=== PATIENT | female | born 1980 | race Caucasian/White ===

== ENCOUNTER 2018-07-31 18:30 | Outpatient (RCR) | payer OTHER, SELFPAY ==
--- NOTE | 2018-07-24 13:32 | HP.PTEVAL ---
Patient's Visit Information GREY LOGAN is a 37 year old F referred to Physical Therapy by Jhoana Estrella DO with a diagnosis of SPRAIN OF RIGHT ROTATOR CUFF CAPSUL. Date of Evaluation: 07/24/18 Physical Therapist: Manas Nguyen PT, - Visit Plan Frequency: 2x /Week Duration: 4 Weeks Plan: RTC/POSTURAL EX'S,SCAPULAR STRENGTHENING,MODALITIES FOR PAIN RELEIVE - Subjective Findings: This 37 y/o female presents o physical therapy right shoulder pain for about 3 months. Patient injuried right shoulder crossfit possibel bench press,and progressivly worse . Also,patient was in in karate arm bar made symptoms worse. Patient pain affects ADL'S ,self hygine and activies above 90 degrees. Denies parathesia/tingling. Patient pain affect sleeping especially on side right. Patient symptoms affect QOL and function.Patient seen R recommended PT and predisone. 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 SOCIAL:SIGNIFICANT OTHER - Pain Right Shoulder Pain Intensity (Out of 10): 5 Pain Intensity Range: 10 Comment: MOVEMENT - Objective POSTURE:mild foward posture ,rounded shoulders. PALPATION: tender long head bicep tendon. NEURO: intact ,denies parathesia/tingling. AROM: shoulder flexion 160,abduction 160 degrees ,ER 90 pain at end range ,IR behind back. MMT: RTC 4/5 ,bild pain ,deltoid 4-/5 mild pain - Special Tests R Shoulder Supine Impingement Test - RC Tear: Negative R Shoulder Lift Off Test - Subscapular Tear: Negative R Shoulder Drop Sign - IS Test: Negative R Shoulder Belly Press - SupScap: Positive R Shoulder Neer - Impingement: Positive R Shoulder Millan Rj - Impingement: Positive - Goals Goal 1:: Independant with HEP Goal Time Frame: 4-6 Weeks Goal 2:: Patient to decrease shoulder pain by 75% or greater to improve function with ADL'S Goal Time Frame: 4-6 Weeks Goal Time Frame: 4-6 Weeks Goal 4:: Patient to increase strength of right shoulder by 4/5 without pain to improve functio. Goal Time Frame: 4-6 Weeks Goal 5:: Patient to improve ablity to perform ADLS' without pain and crossfit activities Goal Time Frame: 4-6 Weeks - Rehabilitation Potential Physical Therapy Diagnosis: This patient appears to have bicipital tendonesis with pain and palaption and impingement of shoulder during [place] ,lifting ,mainly reaching back thus benifit From skilled PT Rehabilitation Potential: Good - Anticipated Interventions Patient/Client Instruction: Educate patient on: Condition, Plan of Care For the Purpose of:: To decrease pain, To increase ROM, To improve ability to perform ADL's, To increase tolerance to activity/condition/position, To improve performance and independence with ADL's, To improve ability of physical actions for home/community/work/leisure, To improve health of tissue, To decrease soft tissue restriction, To increase flexibility/ROM, To reduce risk of recurrence, To improve ability to perform tasks related to life management Therapeutic Exercise to Include: Strength training, Postural training, Flexibilty training, Active ROM Comment: RTC For the Purpose of:: To decrease pain, To increase ROM, To improve health of tissue, To decrease soft tissue restriction, To increase flexibility/ROM, To reduce risk of recurrence, To improve ability to perform tasks related to life management TENS: Yes IF ES: Yes Cryotherapy (ice pack, ice massage): Yes Thermo therapy (hot pack): Yes Ultrasound (thermal/non thermal): Yes For the Purpose of:: To decrease pain, To decrease swelling/inflammation, To improve nutrient delivery to tissue, To increase oxygenation perfusion, To improve health of tissue, To decrease soft tissue restriction Thank you for the opportunity to evaluate your patient. For Medicare and Medicare HMO plans, please review the plan of care and approve it. It will need to be FAXED BACK to us at [phone] for Medicare purposes. For Medicare only, by signing this I certify the plan of care. Please let me know if there are questions or concerns regarding this plan of care. Physician Signature: Date:
--- NOTE | 2018-08-07 11:12 | HP.PT.NRP ---
HP - Discharge Summary (1) - Patient Information GREY LOGAN was seen in my office for initial evaluation on 07/24/18. The following Plan of Care was established for this patient: Initial Frequency: 2x /Week Initial Duration: 4 Weeks - Anticipated Interventions Patient/Client Instruction: Educate patient on: Condition, Plan of Care For the Purpose of:: To decrease pain, To increase ROM, To improve ability to perform ADL's, To increase tolerance to activity/condition/position, To improve performance and independence with ADL's, To improve ability of physical actions for home/community/work/leisure, To improve health of tissue, To decrease soft tissue restriction, To increase flexibility/ROM, To reduce risk of recurrence, To improve ability to perform tasks related to life management Therapeutic Exercise to Include: Strength training, Postural training, Flexibilty training, Active ROM For the Purpose of:: To decrease pain, To increase ROM, To improve health of tissue, To decrease soft tissue restriction, To increase flexibility/ROM, To reduce risk of recurrence, To improve ability to perform tasks related to life management TENS: Yes IF ES: Yes Cryotherapy (ice pack, ice massage): Yes Thermo therapy (hot pack): Yes Ultrasound (thermal/non thermal): Yes For the Purpose of:: To decrease pain, To decrease swelling/inflammation, To improve nutrient delivery to tissue, To increase oxygenation perfusion, To improve health of tissue, To decrease soft tissue restriction This patient was last seen in our office 07/31/18. Pertinent comments regarding their Physical therapy will appear below: Patient seen for PT for RTC pain with PT focusing on RTC strengthening,posture ex's ,modalties for pain releive thus is d/c from PT At this point I will be discontinuing this patient from physical therapy. I would be happy to see this patient again in the future if found appropriate by the physician. Thank you! Manas Nguyen, PT, Cert MDT, OCS
--- OUTSIDE RECORDS SUMMARY | 2018-09-16 18:14 | XMS RPT_ITS ---
:1980 Author Organization [facility] Care Team Providers Name Role Phone Johana Estrella Attending Unavailable Johana Estrella Referring Unavailable Johana Estrella Primary Care Unavailable PROBLEMS PROBLEMS No Problem Records FoundPROCEDURES PROCEDURES No Procedure Records FoundRESULTS RESULTS INITAL EVALUATION (1) Observed: 07/24/2018 Status: F Source: [facility] - PT 2:42 PM [facility] REPOSITORY [facility] [place] [address] Fax REHABILITATION SERVICES INITIAL EVALUATION MR#: [id number] Acct: [id number] Name: GREY LOGAN Rep #: [id number] : 1980 37 From: Manas Nguyen PT, Cert. MDT, OCS Referring Dr.: Johana Estrella DO Status: REG RCR Insurance: [employer] SELF PAY INSURANCE Patient's Visit Information GREY LOGAN is a 37 year old F referred to Physical Therapy by Johana Estrella DO with a diagnosis of SPRAIN OF RIGHT ROTATOR CUFF CAPSUL. Date of Evaluation: 07/24/18 Physical Therapist: Manas Nguyen PT, - Visit Plan Frequency: 2x /Week Duration: 4 Weeks Plan: RTC/POSTURAL EX'S,SCAPULAR STRENGTHENING,MODALITIES FOR PAIN RELEIVE - Subjective Findings: This 37 y/o female presents o physical therapy right shoulder pain for about 3 months. Patient injuried right shoulder crossfit possibel bench press,and progressivly worse . Also,patient was in in karate arm bar made symptoms worse. Patient pain affects ADL'S ,self hygine and activies above 90 degrees. Denies parathesia/tingling. Patient pain affect sleeping especially on side right. Patient symptoms affect QOL and function.Patient seen R recommended PT and predisone. 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 SOCIAL:SIGNIFICANT OTHER - Pain Right Shoulder Pain Intensity (Out of 10): 5 Pain Intensity Range: 10 Comment: MOVEMENT - Objective POSTURE:mild foward posture ,rounded shoulders. PALPATION: tender long head bicep tendon. NEURO: intact ,denies parathesia/tingling. AROM: shoulder flexion 160,abduction 160 degrees ,ER 90 pain at end range ,IR behind back. MMT: RTC 4/5 ,bild pain ,deltoid 4-/5 mild pain - Special Tests R Shoulder Supine Impingement Test - RC Tear: Negative R Shoulder Lift Off Test - Subscapular Tear: Negative R Shoulder Drop Sign - IS Test: Negative R Shoulder Belly Press - SupScap: Positive R Shoulder Neer - Impingement: Positive R Shoulder Millan Rj - Impingement: Positive - Goals Goal 1:: Independant with HEP Goal Time Frame: 4-6 Weeks Goal 2:: Patient to decrease shoulder pain by 75% or greater to improve function with ADL'S Goal Time Frame: 4-6 Weeks Goal Time Frame: 4-6 Weeks Goal 4:: Patient to increase strength of right shoulder by 4/5 without pain to improve functio. Goal Time Frame: 4-6 Weeks Goal 5:: Patient to improve ablity to perform ADLS' without pain and crossfit activities Goal Time Frame: 4-6 Weeks - Rehabilitation Potential Physical Therapy Diagnosis: This patient appears to have bicipital tendonesis with pain and palaption and impingement of shoulder during [place] ,lifting ,mainly reaching back thus benifit From skilled PT Rehabilitation Potential: Good - Anticipated Interventions Patient/Client Instruction: Educate patient on: Condition, Plan of Care For the Purpose of:: To decrease pain, To increase ROM, To improve ability to perform ADL's, To increase tolerance to activity/condition/position, To improve performance and independence with ADL's, To improve ability of physical actions for home/community/work/leisure, To improve health of tissue, To decrease soft tissue restriction, To increase flexibility/ROM, To reduce risk of recurrence, To improve ability to perform tasks related to life management Therapeutic Exercise to Include: Strength training, Postural training, Flexibilty training, Active ROM Comment: RTC For the Purpose of:: To decrease pain, To increase ROM, To improve health of tissue, To decrease soft tissue restriction, To increase flexibility/ROM, To reduce risk of recurrence, To improve ability to perform tasks related to life management TENS: Yes IF ES: Yes Cryotherapy (ice pack, ice massage): Yes Thermo therapy (hot pack): Yes Ultrasound (thermal/non thermal): Yes For the Purpose of:: To decrease pain, To decrease swelling/inflammation, To improve nutrient delivery to tissue, To increase oxygenation perfusion, To improve health of tissue, To decrease soft tissue restriction Thank you for the opportunity to evaluate your patient. For Medicare and Medicare HMO plans, please review the plan of care and approve it. It will need to be FAXED BACK to us at [phone] for Medicare purposes. For Medicare only, by signing this I certify the plan of care. Please let me know if there are questions or concerns regarding this plan of care. Physician Signature: Date: <Electronically signed by Manas Nguyen PT, Cert. T, OCS> 07/24/18 1442 CC: Johana Estrella DO ELVIS Signed ALLERGIES ALLERGIES No Allergies Records FoundENCOUNTERS ENCOUNTERS ADMIT/DISCHARGE ACCOUNT ADMITTING ENCOUNTER LOCATION SOURCE NUMBER CLASS 07/31/2018 [id number] Ambulatory [facility] [place] [facility] ing:PT Repository PAYERS PAYERS ENCOUNTER GUARANTOR PAYER SUBSCRIBER SOURCE 07/31/2018 GREY [facility] GREY L [facility] [id number] Insurance:Aarti AWADB: [facility] [place]: [id number] Repository [id number]: (186) Date:[id number] [phone] () [id number] JESUS MALDONAOD [id number]: 07/31/2018 Secondary NOT GIVENUNK [facility] Insurance:SELF PAY [facility]: Effective Repository Date:2018-07-20
== END 2018-07-31 19:00 | disposition home or self-care (01) ==
LOC: PT 18:30
PROVIDERS: Family Provider Family Medicine; PCP Family Medicine; Referring Provider Family Medicine; Visit Provider Family Medicine
DX: S43.421D Sprain of right rotator cuff capsule, subsequent encounter (principal)
CPT/HCPCS: 97014; 97032; 97035; 97110; 97161; G0283

== ENCOUNTER 2018-10-09 23:46 | Emergency (ER) | payer OTHER, SELFPAY ==
[2018-10-09 23:47] VITALS: BP 131/89; PULSE 87; RESP 16; TEMP 35.5; O2SAT 100; BMI 41.6
--- NOTE | 2018-10-10 00:12 | RAD_ITS ---
STUDY: X-RAY CHEST REASON FOR EXAM: Female, 37 years old. Chest discomfort TECHNIQUE: PA and lateral views of the chest. COMPARISON: None. FINDINGS: The lungs are clear and expanded. There is no demonstrated pleural abnormality. Normal size heart. Normal mediastinum and rosa. Normal visualized pulmonary arteries. Normal visualized aortic arch and descending thoracic aorta. Normal visualized thoracic spine. Normal visualized ribs, clavicles, and shoulders. There is no demonstrated abnormality of the visualized soft tissue structures of the upper abdomen. RAD/Chest PA and Lateral IMPRESSION: Normal x-ray examination of the chest. Electronically Signed: Corinne Patton MD at 0:53 EST Tel , Service support ,
--- NOTE | 2018-10-10 00:12 | EKG12_ITS ---
Test Reason : CP/BACK PAIN Blood Pressure : / mmHG Vent. Rate : 076 BPM Atrial Rate : 076 BPM P-R Int : 156 ms QRS Dur : 088 ms QT Int : 388 ms P-R-T Axes : 025 050 036 degrees QTc Int : 436 ms Normal sinus rhythm Normal ECG Confirmed by ZELALEM CORONADO, ROBE ([id number]), publication editor ANDRY STEPHENSON ([id number]) on 10/11/2018 9:59:23 AM Referred By: BOB Confirmed By:ROBE MASTERSON MD
--- NOTE | 2018-10-10 01:07 | ED.VISSUMM ---
- ER Visit Summary Date of Service: 10/10/18 Chief Complaint: Chest pain History of Present Illness: The patient is a 37 F who presents with chest pain. It began about 4 hours ago. She states it feels like my muscles are cramped up. This is all the way across her lower chest. She does note a recent URI-like illness with 1 week of cough congestion and rhinorrhea. She states her ears feel clogged. She states she has had similar symptoms with the chest wall pain about once a year. She has a history of seasonal allergies but is otherwise healthy. Physical Examination: Afebrile vitals normal Moist mucous membranes Heart regular rate and rhythm Lungs are clear Abdomen soft Anterior chest wall tenderness to palpation Test Results: EKG shows normal sinus rhythm at a rate of 76. Two-view chest x-ray normal. Emergency Department Course and Treatment: EKG was obtained to rule out pericarditis. This shows no findings suggestive of this. Chest x-ray was obtained to rule out pneumonia and is normal. I do believe this is all related to chest wall pain and costochondritis. She was advised on supportive care. She understands to return for new or worsening symptoms. She was discharged. Treatment Plan: [] Disposition: Discharge Impression: Chest wall pain This note was generated with [employer] dictation software. It may contain incorrect words, spelling, and punctuation that were not noted in review of the chart prior to signing ED Disposition - Plan for ED Patient: Referrals: Johana Estrella DO [Primary Care Provider] -
--- NOTE | 2018-10-10 01:08 | ED.DEP ---
ED Disposition - Plan for ED Patient: Instructions: ED Chest Pain Costochondritis Referrals: Johana Estrella DO [Primary Care Provider] -
[2018-10-10 01:36] VITALS: BP 142/86; PULSE 86; RESP 16; O2SAT 89
== END 2018-10-10 01:36 | disposition home or self-care (01) ==
PROVIDERS: Emergency Provider Emergency Medicine; Family Provider Family Medicine; PCP Family Medicine
DX: R07.89 Other chest pain (principal); R05 Cough; J34.89 Other specified disorders of nose and nasal sinuses
CPT/HCPCS: 71046; 93005; 99282

== ENCOUNTER → 2019-08-02 11:16 | Outpatient (CLI) | payer OTHER, SELFPAY ==
--- NOTE | 2019-08-02 11:22 | RAD_ITS ---
STUDY: X-RAY CHEST REASON FOR EXAM: Female, 38 years old. Chest pain TECHNIQUE: 2 views COMPARISON: Prior chest radiograph of October 10, 2018 FINDINGS: The lungs are clear and expanded. There is no demonstrated pleural abnormality. Normal size heart. Normal mediastinum and rosa. Normal visualized pulmonary arteries. Normal visualized aortic arch and descending thoracic aorta. Normal visualized thoracic spine. Normal visualized ribs, clavicles, and shoulders. There is no demonstrated abnormality of the visualized soft tissue structures of the upper abdomen. RAD/Chest PA and Lateral IMPRESSION: Normal x-ray examination of the chest. Electronically Signed: Tracie Lao MD at 21:21 EST , Service support ,
== END ==
PROVIDERS: Family Provider Family Medicine; PCP Family Medicine; Referring Provider Family Medicine; Visit Provider Family Medicine
DX: R07.9 Chest pain, unspecified (principal)
CPT/HCPCS: 71046

== ENCOUNTER 2021-01-17 23:29 | Emergency (ER) | payer OTHER, SELFPAY ==
--- NOTE | 2021-01-17 00:51 | RAD_ITS ---
STUDY: X-RAY - RIGHT KNEE REASON FOR EXAM: Female, 40 years old. injury TECHNIQUE: 4 view(s) of the knee. COMPARISON: None. FINDINGS: Normal visualized distal femur. Normal visualized proximal tibia and fibula. Normal proximal tibiofibular articulation. Normal medial femorotibial compartment. Normal lateral femorotibial compartment. Normal patellofemoral articulation. The soft tissue structures are unremarkable. No acute fracture. RAD/Knee 4 or More Views IMPRESSION: Negative x-ray examination of the knee. Electronically Signed: Howie Gracia MD at 1:10 EDT Tel , Service support ,
[2021-01-17 23:30] VITALS: BP 140/100; PULSE 93; RESP 15; TEMP 35.8; O2SAT 99; BMI 44.2
--- NOTE | 2021-01-17 23:56 | EDS_ITS ---
HPI History of Present Illness Chief Complaint: Lower Extremity Injury Informant: patient Narrative Narrative: 40-year-old female states that yesterday she was hiking a [place] of the [employer] [place] in the [facility]. She lost her footing fell forward. During the process she injured her right knee. She notes that it was very painful to try to bear any weight. She notes bruising and swelling. PFSH PFS Medical History (Updated 01/18/21 @ 00:[address] Jim Tiwari DO) Alopecia Anxiety Asthma Depression Seasonal allergies Vitamin D deficiency no medical history Home Medications citalopram 20 mg PO DAILY 01/18/21 [History Last Taken Unknown] fexofenadine [Tita Allergy] 60 mg PO DAILY 01/18/21 [History Last Taken Unknown] fluticasone propionate [Flonase Allergy Relief] 1 spray INTRANASAL DAILY 01/18/21 [History Last Taken Unknown] montelukast 10 mg PO DAILY 01/18/21 [History Last Taken Unknown] Allergy/AdvReac Type Severity Reaction Status Date / Time No Known Allergies Allergy Verified 01/17/21 23:41 Surgical History (Updated 01/18/21 @ 00:19 by Lauren Montano) History of placement of ear tubes [place] teeth extracted Social History (Updated 01/17/21 @ 23:[address] Jim Tiwari DO) Smoking Status: Never smoker substance use type: does not use ROS ROS ED Constitutional Constitutional ED: Denies chills or weight loss Eyes Eyes: Denies change in vision or diplopia ENT ENT ED: Denies ear pain, rhinorrhea or sore throat Cardiovascular Cardiovascular: Denies chest pain, orthopnea, palpitations or racing heartbeat Respiratory/Chest Respiratory/Chest: Denies cough, dyspnea or orthopnea Gastrointestinal Gastrointestinal: Denies abdominal pain, diarrhea, nausea or vomiting Genitourinary Genitourinary ED: Denies dysuria, hematuria or urinary frequency Musculoskeletal Musculoskeletal: Reports other Details: Right knee pain ; Denies arthralgias or myalgias Integumentary Denies abscess or rash Neurologic Neurologic: Denies headache(s) or weakness Psychiatric Psychiatric: Denies anxiety, depression, suicidal ideation or suicidal thoughts Endocrine Endocrinology: Denies polydipsia, polyphagia or polyuria Allergic/Immunologic Allergic/Immunologic ED: Denies mouth swelling, tongue swelling or urticaria EXAM Physical Exam Const Vital Signs: 01/17/21 23:30 Temperature 96.5 F L Temperature Source Temporal Pulse Rate 93 Respiratory Rate 15 Blood Pressure 140/100 H Blood Pressure Mean 113 Pulse Ox 99 Oxygen Delivery Method Room Air Positive well nourished and well developed General Appearance ED: well developed HEENT Reports normocephalic, head/scalp atraumatic and moist mucous membranes Eyes PERRL and EOMs intact bilaterally Neck no lymphadenopathy, supple and no JVD Resp normal respiratory effort and clear to auscultation bilaterally Cardio regular rate, regular rhythm and no murmurs GI normal to inspection, nondistended, normoactive bowel sounds and non-tender Palpation: soft Back/Spine no CVA tenderness and normal ROM Extremity Extremity Narrative: Right knee shows stable ligaments. There is swelling without effusion. There is some bruising over the patella and superficial abrasions. Extensor mechanism is intact General Extremety ED: Negative for edema General Extremity: Negative for edema Neuro oriented x3 and CN's II-XII intact bilaterally Sensorium / Orientation: alert Motor Exam: strength 5/5 throughout Psych mental status grossly normal Mood & Affect: Negative for depressed or tearful Skin no rashes or lesions noted and no wounds MDM MDM MDM Narrative Medical decision making narrative: My interpretation of the plain films of the knee is no acute fracture. We will Moiz wrap the knee. She is to use Tylenol Motrin. Continue to ice. Follow with primary care 10 to 14 days if not improving Discharge Plan Triage Chief Complaint: Lower Extremity Injury ED Provider: Jim Tiwari Dx/Rx/DC Orders Clinical Impression: Contusion of knee, right, Right knee sprain Instructions: ED Knee Sprain Prescriptions: No Action fexofenadine [Tita Allergy] 60 mg Tablet 60 mg PO DAILY RF: 0 citalopram 10 mg tablet 20 mg PO DAILY RF: 0 montelukast 10 mg tablet 10 mg PO DAILY RF: 0 fluticasone propionate [Flonase Allergy Relief] 50 mcg/actuation [place],Suspension 1 spray INTRANASAL DAILY RF: 0 Primary Care Provider: Johana Estrella Referrals: Johana Estrella DO [Primary Care Provider] - 10-14 Days if not better Disposition Disposition: Home, self care
== END 2021-01-18 01:07 | disposition home or self-care (01) ==
PROVIDERS: Emergency Provider Emergency Medicine; PCP Family Medicine
DX: S80.01XA Contusion of right knee, initial encounter (principal); S83.91XA Sprain of unspecified site of right knee, initial encounter; Y93.01 Activity, walking, marching and hiking; W19.XXXA Unspecified fall, initial encounter; F32.9 Major depressive disorder, single episode, unspecified; F41.9 Anxiety disorder, unspecified; J45.909 Unspecified asthma, uncomplicated
CPT/HCPCS: 73564; 99282

== ENCOUNTER → 2021-02-04 15:19 | Outpatient (CLI) | payer OTHER, SELFPAY ==
[2021-01-17 23:30] VITALS: BMI 44.2
--- NOTE | 2021-02-04 15:27 | BI_ITS ---
MAMMOGRAPHY - BILATERAL SCREENING REASON FOR EXAM: Female, 40 years old. Routine annual screening examination. PERTINENT HISTORY: Non-contributory. Chronic inversion of the left nipple. TECHNIQUE: Digital bilateral breast bhavya (3D mammographic acquisition) in the CC and MLO projections. 2-D mediolateral oblique (MLO) and craniocaudad (CC) views of both breasts were obtained. CAD: Full Field Digital Mammography with Computer Added Detection was performed. COMPARISON: Comparison is made with prior study dated 12/24/2016. FINDINGS: Breast Composition: There are scattered areas of fibroglandular density. There are no dominant masses or suspicious calcifications. There is an 8 mm x 8 mm focal area of architectural distortion seen in the medial inferior aspect of the right breast. Correlation with ultrasound is recommended. No other significant abnormalities are identified. BI/SCRN MAMM (CAD)W/BHAVYA BILAT IMPRESSION: 8 mm x 8 mm focal area of architectural distortion seen in the slightly medial inferior aspect of the right breast. Correlation with ultrasound is recommended. ASSESSMENT CATEGORY: BIRADS Category 0: Incomplete. Need additional imaging evaluation. A letter regarding these results will be sent to the patient by the facility within 30 days. Approximately 10% of breast cancers are not detected by mammography. A normal mammogram should not delay biopsy of a clinically suspicious abnormality. [id number] Electronically Signed: Antoine Gleason MD at 8:28 EDT , Service support ,
== END ==
PROVIDERS: PCP Family Medicine; Referring Provider Family Medicine; Visit Provider Family Medicine
DX: Z12.31 Encounter for screening mammogram for malignant neoplasm of breast (principal)
CPT/HCPCS: 77063; 77067

== ENCOUNTER → 2021-02-13 08:29 | Outpatient (CLI) | payer OTHER, SELFPAY ==
[2021-01-17 23:30] VITALS: BMI 44.2
--- NOTE | 2021-02-13 08:32 | US_ITS ---
STUDY: ULTRASOUND BREAST - RIGHT REASON FOR EXAM: Female, 40 years old. Abnormal screening mammogram. TECHNIQUE: Axial and longitudinal images of the RIGHT breast were performed with a high resolution ultrasound transducer. # OF IMAGES: 36 COMPARISON: Comparison is made with prior mammogram dated 02/04/2021. FINDINGS: RIGHT Breast: The inferior medial portion of the right breast was examined by ultrasound. There is evidence of dilated ducts. Routine mammographic follow-up is recommended. US/Breast Limited Unilateral IMPRESSION: Dilated ducts in the inferior medial aspect of the right breast. Routine annual mammographic follow-up is recommended. ASSESSMENT CATEGORY: BIRADS Category 2: Benign. A letter regarding these results will be sent to the patient by the facility within 30 days. Electronically Signed: Antoine Gleason MD at 11:06 EDT , Service support ,
== END ==
PROVIDERS: PCP Family Medicine; Referring Provider Family Medicine; Visit Provider Family Medicine
DX: R92.8 Other abnormal and inconclusive findings on diagnostic imaging of breast (principal)
CPT/HCPCS: 76642

== ENCOUNTER 2021-11-05 07:54 | Outpatient (CLI) | payer OTHER, SELFPAY ==
--- NOTE | 2021-11-05 08:00 | RAD_ITS ---
INDICATION: DYSPHAGIA EXAMINATION/TECHNIQUE: Barium oral contrast and gas bubbles were administered to the patient. Total Fluoroscopic Time: 40 seconds AND number of Fluoroscopic Images: 14 OR Radiation dosage index: COMPARISON: None. FINDINGS: Initial AP spot images of the chest and upper abdomen were obtained and are unremarkable with no surgical clips or sutures. No masses or strictures are identified. There is no hiatal hernia. The mucosal pattern is unremarkable. There is normal motility. There is mild reflux. RAD/Esophagus Dual Contrast IMPRESSION: Mild reflux at the gastroesophageal junction. Otherwise, the remainder of the exam is unremarkable. Electronically Signed: Jaylon Holley, at 9:19 EDT ,
== END 2021-11-05 23:59 | disposition home or self-care (01) ==
PROVIDERS: PCP Family Medicine; Referring Provider Internal Medicine Gastroenterology; Visit Provider Internal Medicine Gastroenterology
DX: R13.14 Dysphagia, pharyngoesophageal phase (principal); K21.9 Gastro-esophageal reflux disease without esophagitis; R12 Heartburn; R19.7 Diarrhea, unspecified; K59.00 Constipation, unspecified; R10.30 Lower abdominal pain, unspecified
CPT/HCPCS: 74221

== ENCOUNTER → 2022-02-05 | Outpatient (CLI) | payer OTHER, SELFPAY ==
--- NOTE | 2022-02-05 08:01 | BI_ITS ---
MAMMOGRAPHY - BILATERAL SCREENING REASON FOR EXAM: Female, 41 years old. Routine annual screening examination. PERTINENT HISTORY: Non-contributory. Chronic inversion of the left nipple. TECHNIQUE: Digital bilateral breast bhavya (3D mammographic acquisition) in the CC and MLO projections. 2-D mediolateral oblique (MLO) and craniocaudad (CC) views of both breasts were obtained. CAD: Full Field Digital Mammography with Computer Added Detection was performed. COMPARISON: Comparison is made with prior study dated 02/04/2021 and 12/24/2016. FINDINGS: Breast Composition: There are scattered areas of fibroglandular density. There are no dominant masses or suspicious calcifications. Stable fat-containing axillary lymph nodes. No other significant abnormalities are identified. There has been no significant change since the prior study. BI/SCRN MAMM (CAD)W/BHAVYA BILAT IMPRESSION: Stable bilateral screening mammogram. Yearly follow-up mammogram recommended. (A) ASSESSMENT CATEGORY: BIRADS Category 2: Benign. A letter regarding these results will be sent to the patient by the facility within 30 days. Approximately 10% of breast cancers are not detected by mammography. A normal mammogram should not delay biopsy of a clinically suspicious abnormality. [id number] Electronically Signed: Antoine Gleason MD at 10:02 EDT ,
== END | disposition home or self-care (01) ==
LOC: OPBI 07:59
PROVIDERS: PCP Family Medicine; Visit Provider Family Medicine
DX: Z12.31 Encounter for screening mammogram for malignant neoplasm of breast (principal)
CPT/HCPCS: 77063; 77067

== ENCOUNTER → 2024-02-02 | Outpatient (CLI) | payer OTHER, SELFPAY ==
[2024-02-02 10:26] LABS: Absolute Lymphocyte Count 2.77 X10^3/uL (0.83-4.51); Absolute Neutrophil Count 6.9 X10^3/uL (2.0-7.7); Basophil# 0.04 X10^3/uL; Basophil% 0.4 % (0-1); Eosinophil# 0.14 X10^3/uL; Eosinophils% 1.3 % (0-5); Hematocrit 39.2 % (37-47); Hemoglobin 12.4 g/dL (12.0-15.0); Lymphocyte # 2.77 X10^3/ul (0.83-4.51); Lymphocyte % 25.7 % (19-41); Mean Corp Hgb Conc 31.6 g/dL (32-36); Mean Corpuscular Hgb 25.8 pg (27.0-32.0); Mean Corpuscular Volume 81.7 fL (81-99); Mean Platelet Vol. 9.5 fl (6.2-12.0); Monocyte# 0.89 X10^3/uL; Monocyte% 8.3 % (0-10); NRBC Flagged by Analyzer 0 % (0-5); Neutrophil # 6.89 X10^3/uL (2.7-7.7); Neutrophil % 63.9 % (47-70); Platelet Count 364 K/mm3 (150-450); RBC Distribution Width CV 13.3 % (11.6-14.6); RBC Distribution Width SD 39.1 fl (35.1-43.9); White Blood Count 10.8 K/mm3 (4.4-11.0)
[2024-02-02 11:08] LABS: AST(SGOT) 28 U/L (15-37); Alanine Aminotransfer ALT/SGPT 39 U/L (13-56); Albumin, Serum 3.6 g/dL (3.2-5.0); Alkaline Phosphatase 99 U/L (45-117); Anion Gap 7 (5-15); BUN 12 mg/dL (7-18); BUN/Creat Ratio 16.6 RATIO (10-20); Calcium,Total 9.1 mg/dL (8.5-10.1); Chloride 107 mmol/L (98-107); Creatinine, Serum 0.72 mg/dL (0.55-1.02); EST Glomerular Filtration Rate 93 mL/min (>60); Est Glom Filt Rate - Afr Amer 113 mL/min (>60); Globulin 3.6 g/dL (2.2-4.2); Glucose 97 mg/dL (74-106); Potassium 4.2 mmol/L (3.5-5.1); Protein, Total 7.2 g/dL (6.4-8.2); Sodium Level 137 mmol/L (136-145)
[2024-02-02 12:06] LABS: Hepatitis B Surface Antibody Non-Reactive; Hepatitis B Surface Antigen Non-Reactive (Nonreactive); Hepatitis C Antibody Non-Reactive (Nonreactive)
[2024-02-03 05:07] LABS: Hepatitis A AB, Total Negative (Negative); Hepatitis B Core Ab Total Negative (Negative)
== END | disposition home or self-care (01) ==
LOC: LAB 10:06
PROVIDERS: PCP Family Medicine
DX: K76.0 Fatty (change of) liver, not elsewhere classified (principal); R14.0 Abdominal distension (gaseous)
CPT/HCPCS: 36415; 80053; 85025; 86704; 86706; 86708; 86803; 87340

== ENCOUNTER 2024-04-05 08:25 | Day surgery (SDC) | payer OTHER, SELFPAY ==
--- NOTE | 2024-03-20 18:02 | HP.PCM_ITS ---
History and Physical Date of Admission: 04/05/24 HPI: The patient is a 43 year old adult presenting for pre-operative visit. She is scheduled for hysteroscopy with endonmetrial polyp resection and endometrial ablation, for menorrhagia on 04/05/24. Procedure discussed along with risks, benefits and complications. Other alternatives discussed for management. Consent form signed? Yes. PAST MEDICAL HISTORY PAST MEDICAL HISTORY Diagnosis Date ? Attention deficit disorder without mention of hyperactivity ? Obesity, unspecified ? Other and unspecified ovarian cyst ? Unspecified asthma(493.90) PAST SURGICAL HISTORY PAST SURGICAL HISTORY Procedure Laterality Date ? COLONOSCOPY SCREENING 01/2024 every 10 year ? EGD W/O BRSH SPEC VARICIES INJ 01/2024 ? EXTRACTION ERUPTED TOOTH/EXR ? FIBROSCAN 02/2024 liver ? IUD REMOVAL/INSERTION PROCEDURE (W NOTE) removed 2021 approx ? MYRINGOTOMY ASPIR&/EUSTACHIAN TUBE NFLTJ ANES Myringotomy/tubes CURRENT MEDICATIONS Current Outpatient Medications Medication Sig Dispense Refill ? fluticasone-salmeterol (ADVAIR DISKUS) 100-50 mcg/dose inhaler 1 Puff. ? LORazepam (ATIVAN) 0.5 mg 1 tablet Orally Twice a day prn F41.1 ? MAGNESIUM ORAL Take by mouth. ? cholecalciferol, vitamin D3, (VITAMIN D3 ORAL) Take by mouth. ? TURMERIC ORAL Take by mouth. ? MULTIVITAMIN ORAL Take by mouth. ? clobetasol (TEMOVATE) 0.05 % ointment Apply to affected area. ? fexofenadine HCl (JOSE ORAL) Take by mouth. ? citalopram (CELEXA) 20 mg tablet ? montelukast (SINGULAIR) 10 mg tablet Take 1 tablet by mouth daily at bedtime. 30 tablet 0 ? albuterol HFA (PROVENTIL HFA, VENTOLIN HFA) 90 mcg/actuation inhaler Inhale 2 Puffs as instructed every 4 hours as needed. 1 Inhaler 0 ? fluticasone (FLOVENT HFA) 110 mcg/actuation inhaler Inhale 2 Puffs as instructed twice daily. 1 Inhaler 5 ? albuterol HFA (PROAIR HFA) 90 mcg/actuation inhaler Inhale 2 Puffs as instructed every 4 hours as needed. 1 Inhaler 0 ? Edsiwnqzakoliuw-Qlemklaxt-FE (BROMFED DM) 2-30-10 mg/5 mL syrup Take 5 mL by mouth four times a day as needed. (Patient not taking: Reported on 02/17/2024) 118 mL 0 ? benzonatate (TESSALON PERLES) 100 mg capsule Take 2 capsules by mouth three times a day as needed. (Patient not taking: Reported on 02/17/2024) 30 capsule 0 No current facility-administered medications for this visit. ALLERGIES: Seldane and Suprax [Cefixime] PERSONAL HISTORY: SOCIAL HISTORY Social History Tobacco Use ? Smoking status: Never ? Smokeless tobacco: Never Vaping Use ? Vaping Use: Never used Substance Use Topics ? Alcohol use: No ? Drug use: No FAMILY HISTORY: FAMILY HISTORY FAMILY HISTORY Problem Relation Age of Onset ? Diabetes Mother type 2 ? Alcohol/Drug Sister REVIEW OF SYMPTOMS: GENERAL: denies fevers or chills ENDOCRINOLOGY: has not been on steroids Cardiology : denies palpitations or chest pain Respiratory: denies SOB or cough Hematology: denies history of prolonged bleeding or easy bruising or VTE Allergy: Denies history of personal or family history of allergy to anesthesia PHYSICAL EXAMINATION: VITALS: Blood pressure 122/80, pulse 86, resp. rate 16, height 160.7 cm (5' 3.25), weight 114.3 kg (252 lb), last menstrual period 02/04/2024, SpO2 99%. GENERAL: The patient is well nourished, well hydrated in no acute distress. , The patient is oriented to time, place, and person. NECK: Supple. No lynphadenopathy, normal thyroid, no thyromegaly. LUNGS: Clear to auscultation bilaterally. no wheezes, rhonchi or rales HEART: Regular rate and rhythm, Normal heart sounds, and No murmurs or gallops EMB- 03/01/24 fragments benign endometrial polyp, early secretory phase cub[place] kground endometrium pelvic US 02/28/24 Indication Evaluation of abnormal uterine bleeding: menorrhagia Impression Remote Read. I was not present for image acquisition. I did not speak to the patient. 1. The uterus is 108 x 58 x 58 mm and anteverted. 2. The myometrium contains indirect signs of adenomyosis. There is a 26 x 24 mm left lateral / anterior FIGO 3 fibroid. 3. The endometrium is 18 mm. On 3D imaging there are at least 2, and up to 4, hyperechoic ovoid lesions, some with color flow. This may represent endometrial polyps, however other pathology or artifact may be present. 4. The cervix is normal. 5. There is no free fluid in the pelvis. 6. The right ovary is not well seen - 18 x 17 x 19 mm. 7. The left ovary is not well seen - 18 x 18 x 19 mm. Recommendations 1. Likely endometrial polyps. Consider further evaluation and management with SIS or direct visualization if needed. Menstrual History LMP on 02/14/2024. Contraception: none Method Transabdominal, transvaginal, 3D ultrasound examination, Color Doppler examination. View: Adequate visualization Uterus Uterus: Visualized Uterus position: anteverted Description of uterine malformations: none Myometrium: heterogeneous Endometrium: inhomogeneous, possible polyps noted Cervix details: cystic lesions identified suggesting superficial Nabothian cysts Uterus length 108 mm Uterus width 58 mm Uterus height 58 mm Uterus Vol 189.2 cm? Endometrial thickness, total 18.1 mm Uterine fibroid D1 26 mm Uterine fibroid D2 24 mm Uterine fibroid mean 24.7 mm Uterine fibroid vol 7.572 cm? Uterine fibroids findings: Left lateral anterior wall. FIGO score: 3 - contacts endometrium; 100% intramural Uterine polyp D1 13 mm Uterine polyp D2 9 mm Uterine polyp D3 10 mm Uterine polyp mean 10.7 mm Uterine polyp findings: Right lateral anterior wall Uterine polyp D1 13 mm Uterine polyp D2 14 mm Uterine polyp D3 12 mm Uterine polyp mean 13.0 mm Uterine polyp findings: midline anterior Right Ovary Rt ovary: Visualized Rt ovary morphology: premenopausal normal follicular Rt ovary D1 18 mm Rt ovary D2 17 mm Rt ovary D3 19 mm Rt ovary Vol 3.1 cm? Left Ovary Lt ovary: Visualized Lt ovary morphology: premenopausal normal follicular Lt ovary D1 18 mm Lt ovary D2 18 mm Lt ovary D3 19 mm Lt ovary Vol 3.3 cm? IMPRESSION: endometrial polyps, menorrhagia PLAN: The risks/benefits/alternatives and personal involved for the planned hysteroscopy dilation and curettage with polyp resection and endometrial ablation were reviewed with the patient. Her questions were answered to her satisfaction and she desires to proceed. Consent was signed. I reviewed with her postop instructions and expectations. I have reviewed and updated past medical and surgical history, medications and allergies Assessment & Plan Assessment/Plan (1) Menorrhagia: (2) Endometrial polyp: (3) Intramural uterine fibroid:
[2024-04-05] VITALS (7 sets, daily range): BP systolic 108–130; BP diastolic 52–75; PULSE 65–87; RESP 16–18; TEMP 36.3–36.9; O2SAT 98–100; BMI 44.7
--- NOTE | 2024-04-05 | EMB_PTH ---
PATIENT: MARYSE LOGAN LOC: [facility] – [place] U#:[id number] AGE/SX: 43/F ROOM: RE04/05/[address]: Dr. Aline Abernathy MD : 1980 BED: DIS: 04/05/2024 SPEC #: [id number] RECD: 04/05/24 13:34 STATUS: RAMONA REMoses #: [id number] ASHISH: 04/05/24 00:[address]: Aline Abernathy DEPT: SURGICAL PATHOLOGY RECD BY: Dave Jacobs ENTERED: 04/05/24 13:34 SP TYPE: ENDOM BX/C AMARA DR: Dr. Johana Estrlela DO Tissues: Endometrium, NOS Procedures: Surgery Specimen Level IV HEADER OPERATION: Hysteroscopy, Breana PRE-OP DIAGNOSIS: Menorrhagia, endometrial polyp, intramural uterine fibroid TISSUE SUBMITTED: Endometrial curettings and fibroid MICROSCOPIC DIAGNOSIS Endometrium, curettings: Polypoid fragments of mildly disordered, dyssynchronous endometrium with glandular and stromal breakdown. Fragments of benign endocervical tissue. Fragments of benign myometrium with changes suggestive of adenomyosis. 04/06/2024 COMMENT Case has been reviewed in consultation with Dr. Powers who concurs with the above diagnosis. IDC:NASIM MICROSCOPIC DESCRIPTION Slides are reviewed. GROSS DESCRIPTION Received in fixative is one container labeled with the patient's name and designated Endometrial curettings and fibroid. The specimen consists of multiple fragments of tafoya soft tissue mixed with blood clots measuring in aggregate 5.0 x 3.0 x 1.0cm. The entire specimen is submitted in five cassettes. Kelsey 04/05/2024 TC:5 CPT:16265
[2024-04-05 08:54] LABS: Internal QC Validated? YES +Cl - CLEAR BKGD; Pregnancy, Urine Negative Negative; Record Kit Lot#,Urine Preg HCG0000772476
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
[2024-04-05] MEDS: Lactated Ringers 1,000 ML 15 ML IV (09:07)
[2024-04-05] MEDS: Acetaminophen 500 MG Tablet 1000 MG PO (09:09)
[2024-04-05] MEDS: Ketorolac 30 MG/ML Syringe IV (09:10)
--- NOTE | 2024-04-05 10:43 | DCINST_ITS ---
Discharge Instructions Diet Discharge Diet: No restrictions Activity Return to work on:: 04/09/24 May shower in (days): 1 May resume sexual activity in: 2 weeks Lifting Restrictions: none Dressing / Incision Call your doctor if your incision/area has: Sudden Increased Bleeding and Foul Smelling Discharge Call your doctor if you observe: Fever of 101 or Higher and Using more than 1 pad per hour (for 2 hrs in a row) Follow Up Care Please Follow Up With: Aline Abernathy MD When: You do not need a postop appointment. I will contact you next week with pathology results. Call [phone] or send a [employer] message to make an appointment or with any concerns. Test Results: Test results from this visit will be discussed in further detail at your follow- up appointment, if applicable. Discharge Plan Admission Primary Reason for Your Visit: Hysteroscopy with polyp resection and endometrial ablation Attending Provider: Aline Abernathy Primary Care Provider: Johana Estrella Instructions Print Language: Sammarinese Discharge Orders/Prescriptions Prescriptions: No Action fexofenadine [Tita Allergy] 60 mg Tablet 60 mg PO DAILY montelukast 10 mg tablet 10 mg PO DAILY Patient Comments: TAKE 1 TABLET BY MOUTH EVERY DAY fluticasone propionate [Flonase Allergy Relief] 50 mcg/actuation [place],Suspension 1 spray INTRANASAL DAILY citalopram 20 mg tablet 20 mg PO DAILY magnesium 250 mg tablet 250 mg PO DAILY cholecalciferol (vitamin D3) [Vitamin D3] 50 mcg (2,000 unit) capsule 50 mcg PO DAILY multivitamin [Daily Multi-Vitamin] Tablet 1 tab PO DAILY Referrals / Follow Up: Johana Estrella DO [Primary Care Provider] - Disposition Disposition (needs filled in before D/C Order can be placed): Home, Self Care
--- NOTE | 2024-04-05 10:45 | PCM.OPRPT ---
Problems Associated Problem List Diagnoses (1) Endometrial polyp: (2) Menorrhagia: (3) Intramural uterine fibroid: Report of Operation Date of Procedure: 04/05/24 Pre-Operative Diagnosis: menorrhagia, endometrial polyp, intramural uterine fibroid Post-Operative Diagnosis: same + submucosal uterine fibroid Surgery/Procedure Performed:: Hysteroscopy d&C with polyp resection and endometrial ablation Description of Surgical Findings:: normal cervix and vagina, endometrium w/ polp and fibroid extending mostly into the cavity Surgeon: Aline Abernathy salesperson handbags: None Type of Anesthesia: MAC/Supplemental/Local Anesthesiologist: Deysi Brown Special Medications: none Specimen's removed: endometrial currettings, fibroid and polyp Drains: none Estimated Blood Loss (mL): 10 Fluids Replaced: 800 Description of Procedure: The patient was taken to the OR where she was prepped and draped in dorsal lithotomy position. The weighted speculum was placed in the vagina and the anterior lip of the cervix was grasped with a single-tooth tenaculum. A paracervical block was administered with [1% lidocaine with 1-100,000 epinephrine solution]. The cervix was dilated serially with Hegar dilators. The Symphion hysteroscope was placed into the uterine cavity and the above findings were noted. Bilateral tubal ostia [were] identified. The resection device was then used to shave off the endometrium and the submucosal fibroid and endometrial polyp. A gentle sharp curettage was then done to remove the remainder of the endometrium. The hysteroscope was replaced and no other focal abnormalities were noted. Both tubal ostia were noted. The Breana device was readied. The uterus sounded to 9.5 cm and the cervix was 4 cm for cavity length of 5.5 cm. The cavity integrity test and ablation were completed without interruption or complication. The device was then removed from the uterus. All other instruments were removed from the vagina. The specimen was handed off and sent to pathology. All sponge and needle counts were correct. Vaginal sweep was performed by me. The patient was awakened and taken to the recovery room in stable condition. Calculated hysteroscopic fluid deficit: 500 Grafts/Implants Used: none Procedure Start Time: 10:51 Procedure Stop Time: 11:22 Complications none Admit VTE Documentation VTE Present on Admission: No VTE Mechan Device Prophylaxis: SCD's
--- NOTE | 2024-04-05 11:36 | PCM.POST.ANE ---
Anesthesia: Postop Eval I Current Vital Signs Temperature: 97.4 F Pulse Rate: 85 Blood Pressure: 108/52 Respiratory Rate: 16 Pulse Ox: 99 Oxygen Delivery Method: Room Air Assessment Airway patent: Yes Spontaneous unlabored respirations: Yes Mental status: Awake and Calm nausea: No Vomiting: No Anesthesia Complication: No Fluid Hydration Crystalloid volume administer (ml): 800 Total IV fluid infused: 800 Progress Note Anesthesia document: Postop Eval 1 completed: Yes
--- NOTE | 2024-04-05 14:32 | POSTOPAN2_ITS ---
Anesthesia Postop Eval I Sum Postop Eval Completion status Anesthesia document: Postop Eval 1 completed: Yes Anesthesia Postop Eval I Summary Anesthesia Postop Eval I Summary: Anesthesia Postop Eval I: Assessment Summary Airway patent Yes 04/05/24 11:37 HEAD BONE [email or web address] Spontaneous unlabored Yes 04/05/24 11:37 HEAD BONE [email or web address] respirations Mental status Awake,Calm 04/05/24 11:37 HEAD BONE [email or web address] nausea No 04/05/24 11:37 HEAD BONE [email or web address].[email or web address] Vomiting No 04/05/24 11:37 HEAD BONE GRINDER.[email or web address] Anesthesia Postop Eval I: Fluid Summary Crystalloid volume administer 800 04/05/24 11:37 HEAD BONE GRINDER.GDOTT (ml) Colloids volume administered ( ml) Blood Product volume administered (ml) Total IV fluid infused 800 04/05/24 11:37 HEAD BONE [email or web address].[email or web address] Anesthesia Postop Eval I: Summary Notes Anesthesia Complication No 04/05/24 11:37 HEAD BONE [email or web address].[email or web address] Anesthesia Complication Comment: Post-operative progress note Anesthesia: Postop Eval II Evaluation Mental status: Awake and Calm Pain Level: 1 nausea: No Vomiting: No Complications Anesthesia Complication: No
--- NOTE | 2024-04-05 14:32 | PCM.POSTANE2 ---
Anesthesia Postop Eval I Sum Postop Eval Completion status Anesthesia document: Postop Eval 1 completed: Yes Anesthesia Postop Eval I Summary Anesthesia Postop Eval I Summary: Anesthesia Postop Eval I: Assessment Summary Airway patent Yes 04/05/24 11:37 SLIDE FASTENER CHAIN [email or web address] Spontaneous unlabored Yes 04/05/24 11:37 SLIDE FASTENER CHAIN [email or web address] respirations Mental status Awake,Calm 04/05/24 11:37 SLIDE FASTENER CHAIN ASSEMBLER.GDOTT nausea No 04/05/24 11:37 SLIDE FASTENER CHAIN ASSEMBLER.GDOTT Vomiting No 04/05/24 11:37 SLIDE FASTENER CHAIN [email or web address].[email or web address] Anesthesia Postop Eval I: Fluid Summary Crystalloid volume administer 800 04/05/24 11:37 SLIDE FASTENER CHAIN ASSEMBLER.GDOTT (ml) Colloids volume administered ( ml) Blood Product volume administered (ml) Total IV fluid infused 800 04/05/24 11:37 SLIDE FASTENER CHAIN [email or web address].[email or web address] Anesthesia Postop Eval I: Summary Notes Anesthesia Complication No 04/05/24 11:37 SLIDE FASTENER CHAIN [email or web address].[email or web address] Anesthesia Complication Comment: Post-operative progress note Anesthesia: Postop Eval II Evaluation Mental status: Awake and Calm Pain Level: 1 nausea: No Vomiting: No Complications Anesthesia Complication: No
== END 2024-04-05 13:04 | disposition home or self-care (01) ==
LOC: SDC 08:28 → AC 08:29
PROVIDERS: PCP Family Medicine; Referring Provider Obstetrics & Gynecology; Visit Provider Obstetrics & Gynecology
PROC: 0U5B8ZZ Destruction of Endometrium, Via Natural or Artificial Opening Endoscopic (ICD-10-PCS; CPT 58558; principal; 2024-04-05 09:45)
DX: D25.0 Submucous leiomyoma of uterus (principal); N84.0 Polyp of corpus uteri; N92.0 Excessive and frequent menstruation with regular cycle; J45.909 Unspecified asthma, uncomplicated; F90.0 Attention-deficit hyperactivity disorder, predominantly inattentive type; E66.9 Obesity, unspecified; Z79.899 Other long term (current) drug therapy
CPT/HCPCS: 58563; 00952; 81025; 88305; J7120; J2405

== ENCOUNTER → 2025-02-14 | Outpatient (CLI) | payer OTHER, SELFPAY ==
--- NOTE | 2025-02-14 08:20 | BI_ITS ---
EXAM: SCRN MAMM (CAD)W/BHAVYA BILAT DATE: 02/14/2025 CLINICAL HISTORY: F, Age 44 y/o , SCREENING Noncontributory. History of chronic inversion of the left nipple. TECHNIQUE: SCRN MAMM (CAD)W/BHAVYA BILAT COMPARISON: Prior exam(s) dated February 05, 2022. FINDINGS: TISSUE DENSITY: There are scattered areas of fibroglandular density. Bilateral Breast Mammographic Findings: No significant masses, calcifications or other abnormalities are identified. Stable fat containing bilateral axillary lymph nodes. No suspicious masses, areas of developing architectural distortion, or suspicious calcifications. There has been no significant interval change. BI/SCRN MAMM (CAD)W/BHAVYA BILAT IMPRESSION: Stable examination. OVERALL FINAL ASSESSMENT BI-RADS 2: BENIGN RECOMMEND ANNUAL MAMMOGRAPHIC SCREENING. RECOMMENDATION: Routine annual follow-up in 1 Year A letter with findings and recommendations will be mailed to the patient. Reading Location: [facility]
== END | disposition home or self-care (01) ==
LOC: OPBI 08:19
PROVIDERS: PCP Family Medicine; Referring Provider Family Medicine; Visit Provider Family Medicine
DX: Z12.31 Encounter for screening mammogram for malignant neoplasm of breast (principal)
CPT/HCPCS: 77063; 77067

== ENCOUNTER → 2025-02-26 | Outpatient (CLI) | payer OTHER, SELFPAY ==
--- NOTE | 2025-02-26 08:42 | US_ITS ---
PROCEDURE: BREAST LIMITED UNILATERAL 02/26/2025 REASON FOR EXAM: 44-year-old female presents for follow-up examination for the left breast finding seen on the mammogram 02/14/2025. COMPARISON: Mammogram 02/26/2025, 02/14/2025 and 02/05/2022. TECHNIQUE: BREAST LIMITED UNILATERAL FINDINGS: Ultrasound performed of the retroareolar and lower inner left breast demonstrate no suspicious sonographic findings. There is no solid mass or abnormal cystic elements. US/Breast Limited Unilateral IMPRESSION: There is no evidence of malignancy. BI-RADS 1: NEGATIVE. RECOMMEND ANNUAL MAMMOGRAPHIC SCREENING. RECOMMENDATION: Routine annual follow-up in 1 Year Reading Location: [id number]
--- NOTE | 2025-02-26 10:13 | BI_ITS ---
EXAM: DIAG MAMM W/CAD, UNILAT 02/26/2025 CLINICAL HISTORY: F, Age 44 y/o , ABN MAMM. Abnormal screening mammogram. TECHNIQUE: DIAG MAMM W/CAD, UNILAT. Repeat mammogram in profile view of the left breast was obtained. The previously questionable nodular density represents a nipple. COMPARISON: Prior exam(s) dated February 14, 2025.. FINDINGS: TISSUE DENSITY: There are scattered areas of fibroglandular density. Unilateral Left Breast Mammographic Findings: No significant masses, calcifications or other abnormalities are identified. BI/DIAG MAMM W/CAD, UNILAT IMPRESSION: The previously questionable nodular density in the left breast represents a nip ple. OVERALL FINAL ASSESSMENT BI-RADS 2: BENIGN RECOMMEND ANNUAL MAMMOGRAPHIC SCREENING. RECOMMENDATION: Routine annual follow-up in 1 Year A letter with findings and recommendations will be mailed to the patient. Reading Location: [place] [id number]
== END | disposition home or self-care (01) ==
PROVIDERS: PCP Family Medicine; Referring Provider Family Medicine; Visit Provider Family Medicine
DX: R92.8 Other abnormal and inconclusive findings on diagnostic imaging of breast (principal)
CPT/HCPCS: 76642; 77065

== ENCOUNTER 2025-04-18 11:10 | Inpatient (IN) | payer OTHER, SELFPAY ==
[2025-04-12 13:21] LABS: Hematocrit 40.3 % (37-47); Hemoglobin 13.7 g/dL (12.0-15.0); Mean Corp Hgb Conc 34.0 g/dL (32-36); Mean Corpuscular Volume 87.8 fL (81-99); Mean Platelet Vol. 9.8 fl (6.2-12.0); Platelet Count 323 K/mm3 (150-450); RBC Distribution Width CV 12.1 % (11.6-14.6); RBC Distribution Width SD 39.1 fl (35.1-43.9); Red Blood Count 4.59 M/mm3 (4.2-5.4); White Blood Count 12.0 K/mm3 (4.4-11.0)
[2025-04-12 14:34] LABS: Magnesium 1.9 mg/dL (1.5-2.2)
[2025-04-18] VITALS (17 sets, daily range): BP systolic 132–162; BP diastolic 75–104; PULSE 75–90; RESP 16–20; TEMP 36.1–36.8; O2SAT 94–100; BMI 45.4
--- OUTSIDE RECORDS SUMMARY | 2025-04-18 06:39 | XMS RPT_ITS | CCD ---
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 IMPRESSION: menorrhagia w/ irreg cyclce, intramural fibroids, dysmenorrhea, post-endometrial ablation syndrome PLAN: The risks/benefits/alternativ es and personal involved for the planned TLH, bilateral salpingectomy and cystoscopy were reviewed with the patient. Her questions were answered to her satisfaction and she desires to proceed. Consent was signed. I reviewed with her postop instructions and expectations. I have reviewed and updated past medical and surgical history, medications and allergies Barber Potts M.D. [1] Social History Tobacco Use Smoking status: Never Smokeless tobacco: Never Vaping Use Vaping status: Never Used Substance Use Topics Alcohol (more content not included)... Normal [facility] CNOVon 03-25-2025 CNOV Office Visit (OBGYWM ) ----- MARYSE LOGAN ([id number]) 1980 F Date Time Provider Department 03/25/25 11:10 AM BARBER POTTS OBGYWM During your visit today, we recorded the following information about you: Blood pressure Weight 136/84 116.8 kg Alexis Rhoades LPN 04/02/2025 2:11 AM Signed Patient declined adult probation officer. Barber Potts MD 04/02/2025 2:07 AM Signed - Diagnosis: post-endometrial ablation syndrome with uterine fibroids - Laparoscopic hysterectomy (removal of uterus, cervix, and fallopian tubes, preserving ovaries) scheduled for April [address] [facility] - Take ibuprofen (Motrin) and acetaminophen (Tylenol) regularly after surgery to keep pain at a mild level (around 3-4/10) - Use the oxycodone tablets sent home with you primarily at night for breakthrough pain as needed; prescription has been sent to your pharmacy - Shower starting the day after surgery; avoid tub baths, swimming pools, and hot tubs for 6 weeks - Do not lift heavy objects, bend deeply, or squat for 6 weeks - Avoid inserting anything into the vagina (tampons, intercourse) for 6 weeks - Apply heat or ice to your abdomen as needed for comfort - Support your lower abdomen with a small pillow or folded blanket when coughing, laughing, or moving - Plan to take 3 weeks off work; if your job is mostly sitting, you may return after 2 weeks if you feel ready; delay return to heavy lifting tasks until 6 weeks post-op Barber Potts MD 04/02/2025 2:11 AM Signed Obstetrics and Gynecology [place] [employer] Visit Subjective Recording using [employer] software for draft documentation of the visit was discussed with the patient/authorized claims service representative; all questions welcomed and answered. Patient/authorized claims service representative agreed to proceed CHIEF COMPLAINT: The patient is a 44-year-old female with a history of endometrial ablation presenting for severe menstrual cramps and abnormal bleeding. HPI: Menstrual Irregularities - Underwent endometrial ablation in March of last year. - Reports progressively worsening cramps during her cycle, similar to pre-ablation, with severe pain incapacitating for at least 2 days each month. - Pain radiates to back, causes severe nausea and vomiting, and is unrelieved by 800 mg ibuprofen or a heating pad. - Experiences tenderness even after the acute phase, lasting about a week and a half. - Recently experienced a sudden gush of blood, described as dripping down my legs, which was a new and alarming symptom. - Has tried various hormonal treatments, including Kyleena IUD and oral contraceptives, without relief. - No fevers, chills, or abnormal vaginal discharge reported. - Occasional bowel changes during episodes of severe pain. Past Diagnostic Results: - Ultrasound (Tuesday): Revealed a few fibroids. 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 Obesity, unspecified Other and unspecified ovarian cyst Unspecified asthma(493.90) PAST SURGICAL HISTORY Procedure Laterality Date COLONOSCOPY SCREENING 01/2024 every 10 [facility] 01/2024 EXTRACTION ERUPTED TOOTH/EXR FIBROSCAN 02/2024 liver HYSTEROSCOPY REMOVAL LEIOMYOMATA 04/05/2024 and Breana endometrial ablation IUD REMOVAL/INSERTION PROCEDURE (W NOTE) removed 2021 approx MYRINGOTOMY ASPIRAND/EUSTACHIAN TUBE NFLTJ ANES Myringotomy/tubes FAMILY HISTORY Problem Relation Age of Onset Diabetes Mother type 2 Alcohol/Drug Sister SOCIAL HISTORY[1] Current Outpatient Medications Medication Sig naproxen (NAPROSYN) 500 mg tablet Take 500 mg by mouth two times a day with meals. (Patient taking differently: Take 500 mg by mouth as needed for pain.) methocarbamol (ROBAXIN) 750 mg tablet Take 1 tablet by mouth three times a day as needed (cramping or muscle spasms). ondansetron (ZOFRAN) 4 mg tablet Take 1 tablet by mouth every 8 hours as needed for nausea/vomiting. metFORMIN (GLUCOPHAGE) 500 mg tablet Take 500 mg by mouth. NOT STARTED YET fluticasone-salmeterol (ADVAIR DISKUS) 100-50 mcg/dose inhaler 1 Puff. LORazepam (ATIVAN) 0.5 mg 1 tablet Orally Twice a day prn F41.1 MAGNESIUM ORAL Take by mouth. cholecalciferol, vitamin D3, (VITAMIN D3 ORAL) Take by mouth. TURMERIC ORAL Take by mouth. MULTIVITAMIN ORAL Take by mouth. clobetasol (TEMOVATE) 0.05 % ointment Apply to affected area as needed (flare up). fexofenadine HCl (TITA ORAL) Take by mouth. citalopram (CELEXA) 20 mg t (more content not included)... Normal [facility] FEMALE PELVIS TRANSABD LT Don 03-22-2025 FEMALE PELVIS TRANSABD LTD * * *Final Report* * * DATE OF EXAM: Mar 22 2025 2:19PM WRU 1059 - FEMALE PELVIS TRANSABD LTD / PROCEDURE REASON: Pelvic pain * * * * Physician Interpretation * * * * EXAMINATION: TRANSVAGINAL AND LIMITED TRANSABDOMINAL FEMALE PELVIC ULTRASOUND CLINICAL HISTORY: Abnormal bleeding. Status post ablation. TECHNIQUE: Sonography of the pelvis was performed by transvaginal and transabdominal (limited) techniques. Images were obtained and stored in a permanent archive. MQ: [facility]_2021 COMPARISON: CT flank on 04/28/2024 RESULT: Limitations: Bowel gas and body habitus. Uterus: -Size: 11 x 6.4 x 7.4 cm -Orientation: Anteverted -Endometrial echo complex: Evaluation of the endometrium was adequate. No endometrial abnormality. The endometrial echo complex measured 1.1 cm. Also seen is blood clot/material in the endometrial canal. -Cervix: Unremarkable. -Adenomyosis assessment: Heterogeneous myometrium. -Fibroids: A few fibroids identified, with the largest one in the fundus measuring 3.1 x 2.7 x 3.1 cm. Right Ovary: Nonvisualized. Left Ovary: Not visualized. Free Fluid: No abnormal free fluid is present. IMPRESSION: Blood clot/material in the endometrial canal. Uterine fibroids. Ovaries not identified. Waiter/Waitress Take Out: SADIE Transcribe Date/Time: Mar 25 2025 10:26A Dictated by : RAMON PÉREZ MD This examination was interpreted and the report reviewed and electronically signed by: RAMON PÉREZ MD on Mar 25 2025 10:31AM EST [id number] Normal [facility] US FEMALE PELVIS TRANSVAGon 03-22-2025 FEMALE PELVIS TRANSVAG * * *Final Report* * * DATE OF EXAM: Mar 22 2025 2:19PM WRU 1060 - US FEMALE PELVIS TRANSVAG / PROCEDURE REASON: Pelvic pain * * * * Physician Interpretation * * * * EXAMINATION: TRANSVAGINAL AND LIMITED TRANSABDOMINAL FEMALE PELVIC ULTRASOUND CLINICAL HISTORY: Abnormal bleeding. Status post ablation. TECHNIQUE: Sonography of the pelvis was performed by transvaginal and transabdominal (limited) techniques. Images were obtained and stored in a permanent archive. MQ: [facility]_2021 COMPARISON: CT flank on 04/28/2024 RESULT: Limitations: Bowel gas and body habitus. Uterus: -Size: 11 x 6.4 x 7.4 cm -Orientation: Anteverted -Endometrial echo complex: Evaluation of the endometrium was adequate. No endometrial abnormality. The endometrial echo complex measured 1.1 cm. Also seen is blood clot/material in the endometrial canal. -Cervix: Unremarkable. -Adenomyosis assessment: Heterogeneous myometrium. -Fibroids: A few fibroids identified, with the largest one in the fundus measuring 3.1 x 2.7 x 3.1 cm. Right Ovary: Nonvisualized. Left Ovary: Not visualized. Free Fluid: No abnormal free fluid is present. IMPRESSION: Blood clot/material in the endometrial canal. Uterine fibroids. Ovaries not identified. Waiter/Waitress Take Out: [email or web address] Transcribe Date/Time: Mar 25 2025 10:26A Dictated by : RAMON PÉREZ MD This examination was interpreted and the report reviewed and electronically signed by: RAMON PÉREZ MD on Mar 25 2025 10:31AM EST [id number] [facility] Tele[facility] (OBGYWM) ----- DOREENMARYSE Shaw ([id number]) 1980 F Date Time Provider Department 03/20/25 [facility] OBGYWM During your visit today, we recorded the following information about you: Kelin Ge LPN 03/20/2025 10:25 AM Addendum Patient had a Breana ablation 03/2024 and called c/o cramping pain rated a 8 out of 10 that is making pt. Nauseated. Pt. Reports vomiting once. Pt. states pain has been getting progressively gotten worse since the ablation and during menses each months she will have spotting w/ intense cramping for a few days then pelvic area is sensitive for a week after menses is over. Pt. has tried taking 800 mg of ibuprofen with no relief of the cramping. No openings this week. Please advise Barber Potts MD 03/20/2025 11:31 AM Signed I am sorry to hear this. Rx sent for muscle relaxer as no openings this week. Alternate tylenol and ibuprofen and use heat prn. Get US. F/u after. If fever or other concern notify office. MD Michaelle Kuhn Jennifer, RN 03/20/2025 11:44 AM Signed Patient called the office. Notified. Asking for medication for nausea. States she is vomiting because of the pain. Patient voiced her frustration regarding the pain. Advised that if her pain is severe she can go to ER. Patient may go to [facility] [place] or [place] so that she stays within the [facility] system. First available pelvic US is 04/02. Offered to transfer her to a PSS who can check other [facility] locations for a sooner appointment. Patient will call the office after speaking with her . RADHA Islas Rebecca L, MD 03/20/2025 11:54 AM Addendum rx for nausea. I am planning on working in office on Tuesday from 05-23. Would be happy to see patient then. Radiology order in as well. MD Blaise Kuhn Trisha, RN 03/20/2025 12:11 PM Signed Patient notified and appointments scheduled. Kelly Yarbrough RN Allergies As of Date: 03/20/2025 Noted Allergy Reaction SELDANE 12/19/2016 2 - Rash SUPRAX (CEFIXIME) 12/19/2016 2 - Rash Date Reviewed: 09/06/2024 Reviewed by: Angélica Soriano MA - Fully Assessed Reason for Visit: Pelvic Pain [282] Primary Visit Diagnosis:Pelvic pain [R10.2] Order(s):methocarbamol (ROBAXIN) 750 mg tabletTake 1 tablet by mouth three times a day as needed (cramping or muscle spasms).Disp: 60 tabletRfl: 0 PELVIC WHI [[id number]] Order #: [id number]: 1 FUTURE ondansetron (ZOFRAN) 4 mg tabletTake 1 tablet by mouth every 8 hours as needed for nausea/vomiting.Disp: 30 tabletRfl: 1 FEMALE PELVIS TRANSABD LTD [[id number]] Order #: [id number] FUTURE FEMALE PELVIS TRANSVAG [[id number]] Order #: [id number] FUTURE Prescriptions as of 03/20/2025 - methocarbamol (ROBAXIN) 750 mg tablet Take 1 tablet by mouth three times a day as needed (cramping or muscle spasms). - ondansetron (ZOFRAN) 4 mg tablet Take 1 tablet by mouth every 8 hours as needed for nausea/vomiting. - metFORMIN (GLUCOPHAGE) 500 mg tablet Take 500 mg by mouth. NOT STARTED YET - fluticasone-salmeterol (ADVAIR DISKUS) 100-50 mcg/dose inhaler 1 Puff. - LORazepam (ATIVAN) 0.5 mg 1 tablet Orally Twice a day prn F41.1 - MAGNESIUM ORAL Take by mouth. - cholecalciferol, vitamin D3, (VITAMIN D3 ORAL) Take by mouth. - TURMERIC ORAL Take by mouth. - MULTIVITAMIN ORAL Take by mouth. - clobetasol (TEMOVATE) 0.05 % ointment Apply to affected area as needed (flare up). - fexofenadine HCl (TITA ORAL) Take by mouth. - citalopram (CELEXA) 20 mg tablet - montelukast (SINGULAIR) 10 mg tablet Take 1 tablet by mouth daily at bedtime. - fluticasone (FLOVENT HFA) 110 mcg/actuation inhaler Inhale 2 Puffs as instructed twice daily. - albuterol HFA (PROAIR HFA) 90 mcg/actuation inhaler Inhale 2 Puffs as instructed every 4 hours as needed. Problem List As Of Date 03/20/2025 Noted Resolved ASTHMA UNSPECIFIED [J45.909] 09/04/2004 Attention deficit disorder without mention of h* 05/29/2022 OBESITY NOS [E66.9] Obesity, Class III, BMI >= 40 [E66.813] 08/10/2024 History of fatty infiltration of liver [Z87.19] 08/10/2024 Stress [F43.9] 08/10/2024 Prescriptions ordered this encounter Disp Refills Start End METHOCARBAMOL 750 MG TABLET 60 t* 0 03/20/2025 Route: PO Sig: Take 1 tablet by mouth three times a day as needed (cramping or muscle spasms). ONDANSETRON HCL 4 MG TABLET 30 t* 1 03/20/2025 Route: PO Sig: Take 1 tablet by mouth every 8 hours as needed for nausea/vomiting. Encounter Status:Closed by KELLY YARBROUGH on 03/20/25 Normal [facility] Breast Limited Unilateralon 02-26-2025 Breast Limited Unilateral [facility] Imaging Services [address] [place] [address] Breast Limited Unilateral MR#: [id number] Acct: [id number] Name: MARYSE LOGAN Rep #: [id number] : 1980 F 44 From: Lalita Jovel MD PCP: Dr. Johana Estrella DO Status: REG CLI Study: Breast Limited Unilateral Date of Exam: Exam# [id number] Ordering Dr: Johana Estrella DO PROCEDURE: BREAST LIMITED UNILATERAL 02/26/2025 REASON FOR EXAM: 44-year-old female presents for follow-up examination for the left breast finding seen on the mammogram 02/14/2025. COMPARISON: Mammogram 02/26/2025, 02/14/2025 and 02/05/2022. TECHNIQUE: BREAST LIMITED UNILATERAL FINDINGS: Ultrasound performed of the retroareolar and lower inner left breast demonstrate no suspicious sonographic findings. There is no solid mass or abnormal cystic elements. US/Breast Limited Unilateral IMPRESSION: There is no evidence of malignancy. BI-RADS 1: NEGATIVE. RECOMMEND ANNUAL MAMMOGRAPHIC SCREENING. RECOMMENDATION: Routine annual follow-up in 1 Year Reading Location: [facility] CC: Dr. Johana Estrella DO Waiter/Waitress Take Out: Signed Normal [facility] Breast imaging reportOrdered By: Antoine Gleason on 02-26-2025 Study report [facility] Imaging Services [address] [place] [address] DIAG MAMM W/CAD, UNILAT MR#: [id number] Acct: [id number] Name: MARYSE LOGAN MELISSA Rep #: [id number] : 1980 F 44 From: Mac Gleason MD PCP: Dr. Johana Estrella DO Status: R EG CLI Study:DIAG MAMM W/CAD, UNILAT Date of Exam: 02/26/25 Exam# [id number] Ordering Dr: Johana Estrella DO EXAM: DIAG MAMM W/CAD, UNILAT 02/26/2025 CLINICAL HISTORY: F, Age 44 y/o , ABN MAMM. Abnormal screening mammogram. TECHNIQUE: DIAG MAMM W/CAD, UNILAT. Repeat mammogram in profile view of the left breast was obtained. The previously questionable nodular density represents a nipple. COMPARISON: Prior exam(s) dated February 14, 2025.. FINDINGS: TISSUE DENSITY: There are scattered areas of fibroglandular density. Unilateral Left Breast Mammographic Findings: No significant masses, calcifications or other abnormalities are identified. BI/DIAG MAMM W/CAD, UNILAT IMPRESSION: The previously questionable nodular density in the left breast represents a nipple. OVERALL FINAL ASSESSMENT BI-RADS 2: BENIGN RECOMMEND ANNUAL MAMMOGRAPHIC SCREENING. RECOMMENDATION: Routine annual follow-up in 1 Year A letter with findings and recommendations will be mailed to the patient. Reading Location: [place] [address] CC: Dr. Johana Estrella DO ~ Waiter/Waitress Take Out: Signed [facility] DIAG MAMM W/CAD, UNILATon DIAG MAMM W/CAD, UNILAT [facility] Imaging Services [address] [place] [address] DIAG MAMM W/CAD, UNILAT MR#: [id number] Acct: [id number] Name: MARYSE LOGAN Rep #: [id number] : 1980 F 44 From: Antoine long MD PCP: Dr. Johana Estrella DO Status: [facility] CLI Study: DIAG MAMM W/CAD, UNILAT Date of Exam: 02/26/25 Exam# [id number] Ordering Dr: Johana Estrella DO EXAM: DIAG MAMM W/CAD, UNILAT 02/26/2025 CLINICAL HISTORY: F, Age 44 y/o , ABN MAMM. Abnormal screening mammogram. TECHNIQUE: DIAG MAMM W/CAD, UNILAT. Repeat mammogram in profile view of the left breast was obtained. The previously questionable nodular density represents a nipple. COMPARISON: Prior exam(s) dated February 14, 2025.. FINDINGS: TISSUE DENSITY: There are scattered areas of fibroglandular density. Unilateral Left Breast Mammographic Findings: No significant masses, calcifications or other abnormalities are identified. BI/DIAG MAMM W/CAD, UNILAT IMPRESSION: The previously questionable nodular density in the left breast represents a nipple. OVERALL FINAL ASSESSMENT BI-RADS 2: BENIGN RECOMMEND ANNUAL MAMMOGRAPHIC SCREENING. RECOMMENDATION: Routine annual follow-up in 1 Year A letter with findings and recommendations will be mailed to the patient. Reading Location: [facility] CC: Dr. Johana Estrella DO Waiter/Waitress Take Out: Signed Normal [facility] Breast imaging reportOrdered By: Antoine Gleason on 02-19-2025 Study report [facility] Imaging Services [address] [place] [address] SCRN MAMM (CAD)W/BHAVYA BILAT MR#: [id number] Acct: [id number] Name: MARYSE LOGAN Rep #: [id number] : 1980 F 44 From: Mac Gleason MD PCP: Dr. Johana Estrella DO Status: R EG CLI Study:SCRN MAMM (CAD)W/BHAVYA BILAT Date of Exa m: 02/14/25 Exam# [id number] Ordering Dr: Johana Estrella DO ADDENDUM by Dr. Antoine Gleason MD on 02/19/25 at 1317 I suspect a 9.4 mm nodule in the medial retroareolar region of the left breast. Correlation with ultrasound recommended. BI-RADS category 0. Reading Location: [id number] 02/19/25 1318 Date cc: Dr. Johana Estrella DO ~* Signed EXAM: SCRN MAMM (CAD)W/BHAVYA BILAT DATE: 02/14/2025 CLINICAL HISTORY: F, Age 44 y/o , SCREENING Noncontributory. History of chronic inversion of the left nipple. TECHNIQUE: SCRN MAMM (CAD)W/BHAVYA BILAT COMPARISON: Prior exam(s) dated February 05, 2022. FINDINGS: TISSUE DENSITY: There are scattered areas of fibroglandular density. Bilateral Breast Mammographic Findings: No significant masses, calcifications or other abnormalities are identified. Stable fat containing bilateral axillary lymph nodes. No suspicious masses, areas of developing architectural distortion, or suspicious calcifications. There has been no significant interval change. BI/SCRN MAMM (CAD)W/BHAVYA BILAT IMPRESSION: Stable examination. OVERALL FINAL ASSESSMENT BI-RADS 2: BENIGN RECOMMEND ANNUAL MAMMOGRAPHIC SCREENING. RECOMMENDATION: Routine annual follow-up in 1 Year A letter with findings and recommendations will be mailed to the patient. Reading Location: [facility] CC: Dr. Johana Estrella DO ~ Waiter/Waitress Take Out: Signed [facility] SCRN MAMM (CAD)W/BHAVYA BILATo n 02-14-2025 SCRN MAMM (CAD)W/BHAVYA BILAT [facility] Imaging Services [address] [place] [address] SCRN MAMM (CAD)W/BHAVYA BILAT MR#: [id number] Acct: [id number] Name: MARYSE LOGAN Rep #: [id number] : 1980 F 44 From: Antoine long MD PCP: Dr. Johana Estrella DO Status: REG CLI Study: SCRN MAMM (CAD)W/BHAVYA BILAT Date of Exam: 01/21 02/13 Exam# [id number] Ordering Dr: Johana Estrella DO ADDENDUM by Dr. Antoine Gleason MD on 02/19/25 at 1317 I suspect a 9.4 mm nodule in the medial retroareolar region of the left breast. Correlation with ultrasound recommended. BI-RADS category 0. Reading Location: [facility] 02/19/25 1318 Date cc: Dr. Johana Estrella DO * Signed EXAM: SCRN MAMM (CAD)W/BHAVYA BILAT DATE: 02/14/2025 CLINICAL HISTORY: F, Age 44 y/o , SCREENING Noncontributory. History of chronic inversion of the left nipple. TECHNIQUE: SCRN MAMM (CAD)W/BHAVYA BILAT COMPARISON: Prior exam(s) dated February 05, 2022. FINDINGS: TISSUE DENSITY: There are scattered areas of fibroglandular density. Bilateral Breast Mammographic Findings: No significant masses, calcifications or other abnormalities are identified. Stable fat containing bilateral axillary lymph nodes. No suspicious masses, areas of developing architectural distortion, or suspicious calcifications. There has been no significant interval change. BI/SCRN MAMM (CAD)W/BHAVYA BILAT IMPRESSION: Stable examination. OVERALL FINAL ASSESSMENT BI-RADS 2: BENIGN RECOMMEND ANNUAL MAMMOGRAPHIC SCREENING. RECOMMENDATION: Routine annual follow-up in 1 Year A letter with findings and recommendations will be mailed to the patient. Reading Location: [id number] CC: Dr. Johana Estrella, Waiter/Waitress Take Out: Signed Normal [facility] CBC W Auto Differential pane l (Bld)on 01-30-2025 Basophils (Bld) [#/Vol] 0.04 10*3/uL Normal <0.11 [facility] Comment on above: Order Comment: Speci men Type: BLOOD SPECIMENOrdering Facility: [facility] Address: [address] [place] [address] Performed By: #### 5 7021-8, 3016-3, 77542-6, 80982-5 ####[facility] LABCLIA [id number] [place] [address] [place] Basophils/100 WBC (Bld) 0.5 % Normal [facility] Comment on above: Order Comment: Speci men Type: BLOOD SPECIMENOrdering Facility: [facility] Address: [address] [place] [address] Performed By: #### 5 7021-8, 3016-3, 43325-8, 20683-3 ####[facility]CL[facility] [id number] [place] [id number] [place] Differential cell count method Nom (Bld) Auto Normal [facility] Comment on above: Order Comment: Speci men Type: BLOOD SPECIMENOrdering Facility: [facility] Address: [address] [place] [address] Performed By: #### 5 7021-8, 3016-3, 48528-4, 12764-9 ####[facility] [id number] [address] [address] [place] Eosinophils (Bld) [#/Vol] 0.21 10*3/uL Normal <0.46 [facility] Comment on above: Order Comment: Speci men Type: BLOOD SPECIMENOrdering Facility: [facility] Address: [address] [place] [address] Performed By: #### 5 7021-8, 3016-3, 98637-4, 94410-1 ####[facility] [id number] [place] [id number] [place] Eosinophils/100 WBC (Bld) 2.5 % Normal [facility] Comment on above: Order Comment: Speci men Type: BLOOD SPECIMENOrdering Facility: [facility] Address: [address] [address] Performed By: #### 5 7021-8, 3016-3, 92173-6, 17120-9 ####[facility]CL[facility] [id number] [place] [id number] [place] Erythrocyte distribution width (RBC) [Ratio] 12.5 % Normal 11.5-15.0 [facility] Comment on above: Order Comment: Speci men Type: BLOOD SPECIMENOrdering Facility: [facility] Address: [address] [place] [address] Performed By: #### 5 7021-8, 3016-3, 37792-2, 55063-9 ####[facility] [id number] [address] [address] [place] Hematocrit (Bld) [Volume fraction] 41.3 % Normal 36.0-46.0 [facility] Comment on above: Order Comment: Speci men Type: BLOOD SPECIMENOrdering Facility: [facility] Address: [address] [place] [address] Performed By: #### 5 7021-8, 3016-3, 80977-3, 70742-1 ####[facility] [id number] [address] [address] [place] Hemoglobin (Bld) [Mass/Vol] 13.7 g/dL Normal 11.5-15.5 [facility] Comment on above: Order Comment: Speci men Type: BLOOD SPECIMENOrdering Facility: [facility] Address: [address] [place] [address] Performed By: #### 5 7021-8, 3016-3, 64881-6, 75606-5 ####[facility] [id number] [address] [address] [place] Immature granulocytes (Bld) [#/Vol] 10*3/uL Normal <0.10 [facility] Comment on above: Order Comment: Speci men Type: BLOOD SPECIMENOrdering Facility: [facility] Address: [address] [place] [address] Performed By: #### 5 7021-8, 3016-3, 29626-7, 82548-0 ####[facility] [id number] [place] [id number] [place] Immature granulocytes/100 WBC (Bld) 0.2 % Normal [facility] Comment on above: Order Comment: Speci men Type: BLOOD SPECIMENOrdering Facility: [facility] Address: [address] [place] [address] Performed By: #### 5 7021-8, 3016-3, 96790-7, 61454-5 ####[facility] [id number] [address] [address] [place] Lymphocytes (Bld) [#/Vol] 2.09 10*3/uL Normal 1.00-4.00 [facility] Comment on above: Order Comment: Speci men Type: BLOOD SPECIMENOrdering Facility: [facility] Address: [address] [place] [address] Performed By: #### 5 7021-8, 3015-3, 23796-2, 21105-3 ####[facility] [id number] [address] [address] [place] Lymphocytes/100 WBC (Bld) 24.6 % Normal [facility] Comment on above: Order Comment: Speci men Type: BLOOD SPECIMENOrdering Facility: [facility] Address: [address] [place] [address] Performed By: #### 5 7021-8, 3015-3, 72486-6, 03611-6 ####[facility] [id number] [address] [address] [place] MCH (RBC) [Entitic mass] 29.5 pg Normal 26.0-34.0 [facility] Comment on above: Order Comment: Speci men Type: BLOOD SPECIMENOrdering Facility: [facility] Address: [address] [place] [address] Performed By: #### 5 7021-8, 3, 98061-0, 51993-7 ####[facility]IA [id number] [place] [id number] [place] MCHC (RBC) [Mass/Vol] 33.2 g/dL Normal 30.5-36.0 [facility] Comment on above: Order Comment: Speci men Type: BLOOD SPECIMENOrdering Facility: [facility] Address: [address] [place] [address] Performed By: #### 5 7021-8, 3, 28331-1, 28556-7 ####[facility]IA [id number] [address] [address] [place] MCV (RBC) [Entitic vol] 89.0 fL Normal 80.0-100.0 [facility] Comment on above: Order Comment: Speci men Type: BLOOD SPECIMENOrdering Facility: [facility] Address: [address] [place] [address] Performed By: #### 5 7021-8, 3016-3, 52724-0, 13976-2 ####[facility] [id number] [address] [address] [place] Monocytes (Bld) [#/Vol] 0.71 10*3/uL Normal <0.87 [facility] Comment on above: Order Comment: Speci men Type: BLOOD SPECIMENOrdering Facility: [facility] Address: [address] [place] [address] Performed By: #### 5 7021-8, 3015-3, 51935-8, 77504-0 ####[facility] [id number] [place] [id number] [place] Monocytes/100 WBC (Bld) 8.4 % Normal [facility] Comment on above: Order Comment: Speci men Type: BLOOD SPECIMENOrdering Facility: [facility] Address: [address] [place] [address] Performed By: #### 5 7021-8, 3016-3, 17880-1, 48346-4 ####[facility] [id number] [place] [id number] [place] Neutrophils (Bld) [#/Vol] 5.43 10*3/uL Normal 1.45-7.50 [facility] Comment on above: Order Comment: Speci men Type: BLOOD SPECIMENOrdering Facility: [facility] Address: [address] [place] [address] Performed By: #### 5 7021-8, 3015-3, , 78103-5 ####[facility] [id number] [address] [address] [place] Neutrophils/100 WBC (Bld) 63.8 % Normal [facility] Comment on above: Order Comment: Speci men Type: BLOOD SPECIMENOrdering Facility: [facility] Address: [address] [place] [address] Performed By: #### 5 7021-8, 3015-3, 51801-0, 74301-1 ####[facility] [id number] [address] [address] [place] Nucleated RBC (Bld) [#/Vol] 10*3/uL Normal <0.01 [facility] Comment on above: Order Comment: Speci men Type: BLOOD SPECIMENOrdering Facility: [facility] Address: [address] [place] [address] Performed By: #### 5 7021-8, 3015-3, 52187-4, 54827-3 ####[facility] [id number] [address] [address] [place] Nucleated RBC/100 WBC (Bld) [Ratio] 0.0 /100 WBC Normal [facility] Comment on above: Order Comment: Speci men Type: BLOOD SPECIMENOrdering Facility: [facility] Address: [address] [place] [address] Performed By: #### 5 7021-8, 6-3, , 77322-7 ####[facility]IA [id number] [place] [id number] [place] Platelet mean volume (Bld) [Entitic vol] 9.8 fL Normal 9.0-12.7 [facility] Comment on above: Order Comment: Speci men Type: BLOOD SPECIMENOrdering Facility: [facility] Address: [address] [place] [address] Performed By: #### 5 7021-8, 3015-3, , 34823-6 ####[facility]IA [id number] [address] [address] [place] Platelets (Bld) [#/Vol] 290 10*3/uL Normal 150-400 [facility] Comment on above: Order Comment: Speci men Type: BLOOD SPECIMENOrdering Facility: [facility] Address: [address] [place] [address] Performed By: #### 5 7021-8, 3015-3, , 03467-7 ####[facility] [id number] [address] [address] [place] RBC (Bld) [#/Vol] 4.64 10*6/uL Normal 3.90-5.20 [facility] Comment on above: Order Comment: Speci men Type: BLOOD SPECIMENOrdering Facility: [facility] Address: [address] [place] [address] Performed By: #### 5 7021-8, 3016-3, 19544-2, 31417-8 ####[facility] [id number] [address] [address] [place] WBC (Bld) [#/Vol] 8.50 10*3/uL Normal 3.70-11.00 [facility] Comment on above: Order Comment: Speci men Type: BLOOD SPECIMENOrdering Facility: [facility] Address: [address] [place] [address] Performed By: #### 5 7021-8, 3016-3, 10950-3, 26062-9 ####[facility] [id number] [address] [address] [place] Comprehensive metabolic 2000 panelon 01-30-2025 Albumin [Mass/Vol] 3.9 g/dL Normal 3.9-4.9 [facility] Comment on above: Order Comment: Speci men Type: BLOOD SPECIMENOrdering Facility: [facility] Address: [address] [place] [address] Performed By: #### 5 7021-8, 3016-3, 90727-1, 14839-3 ####[facility] [id number] [address] [address] [place] ALP [Catalytic activity/Vol] 83 U/L Normal 34-123 [facility] Comment on above: Order Comment: Speci men Type: BLOOD SPECIMENOrdering Facility: [facility] Address: [address] [place] [address] Performed By: #### 5 7021-8, 3016-3, 11951-8, 91379-9 ####[facility] [id number] [address] [address] [place] ALT [Catalytic activity/Vol] 19 U/L Normal 7-38 [facility] Comment on above: Order Comment: Speci men Type: BLOOD SPECIMENOrdering Facility: [facility] Address: [address] [place] [address] Performed By: #### 5 7021-8, 3016-3, 70100-5, 35465-2 ####[facility] [id number] [address] [address] [place] Anion gap [Moles/Vol] 13 mmol/L Normal 8-15 [facility] Comment on above: Order Comment: Speci men Type: BLOOD SPECIMENOrdering Facility: [facility] Address: [address] [place] [address] Performed By: #### 5 7021-8, 3016-3, 52518-4, 94781-7 ####[facility]IA [id number] [address] [address] [place] AST [Catalytic activity/Vol] 18 U/L Normal 13-35 [facility] Comment on above: Order Comment: Speci men Type: BLOOD SPECIMENOrdering Facility: [facility] Address: [address] [place] [address] Performed By: #### 5 7021-8, 3016-3, 38837-7, 51544-6 ####[facility]IA [id number] [address] [address] [place] Bilirubin [Mass/Vol] 0.5 mg/dL Normal 0.2-1.3 [facility] Comment on above: Order Comment: Speci men Type: BLOOD SPECIMENOrdering Facility: [facility] Address: [address] [place] [address] Performed By: #### 5 7021-8, 3016-3, 29961-4, 19147-9 ####[facility] [id number] [address] [address] [place] Calcium [Mass/Vol] 8.9 mg/dL Normal 8.5-10.2 [facility] Comment on above: Order Comment: Speci men Type: BLOOD SPECIMENOrdering Facility: [facility] Address: [address] [place] [address] Performed By: #### 5 7021-8, 3016-3, 91986-8, 97524-2 ####[facility] [id number] [address] [address] [place] Chloride [Moles/Vol] 104 mmol/L Normal 98-107 [facility] Comment on above: Order Comment: Speci men Type: BLOOD SPECIMENOrdering Facility: [facility] Address: [address] [place] [address] Performed By: #### 5 7021-8, 3016-3, 02711-9, 84243-4 ####[facility] [id number] [address] [address] [place] CO2 [Moles/Vol] 24 mmol/L Normal 22-30 [facility] Comment on above: Order Comment: Speci men Type: BLOOD SPECIMENOrdering Facility: [facility] Address: [address] [place] [address] Performed By: #### 5 7021-8, 3016-3, 84683-4, 30122-5 ####[facility] [id number] [address] [address] [place] Creatinine [Mass/Vol] 0.76 mg/dL Normal 0.58-0.96 [facility] Comment on above: Order Comment: Speci men Type: BLOOD SPECIMENOrdering Facility: [facility] Address: [address] [place] [address] Performed By: #### 5 7021-8, 3016-3, 05428-7, 53478-5 ####[facility]IA [id number] [place] [id number] [place] Creatinine and Glomerular filtration rate.predicted panel (S/P/Bld) 99 mL/min/1.73m??? Normal >=60 [facility] Comment on above: Order Comment: Vicky talley Type: BLOOD SPECIMENOrdering Facility: [facility] Address: [address] [address] Result Comment: Nancy mated Glomerular Filtration Rate (eGFR) is calculated using the 2020 CKD-EPI creatinine equation. This equation utilizes serum creatinine, sex, and age as parameters. The creatinine assay has traceable calibration to isotope dilution-mass spectrometry. Refer to KDIGO guidelines for clinical interpretation. In patients with unstable renal function, e.g. those with acute kidney injury, the eGFR may not accurately reflect actual GFR. Performed By: #### 5 7021-8, 3016-3, 04690-6, 71413-7 ####[facility] [id number] [address] [address] [place] Glucose [Mass/Vol] 104 mg/dL High 74-99 [facility] Comment on above: Order Comment: Vicky talley Type: BLOOD SPECIMENOrdering Facility: [facility] Address: [address] [address] Result Comment: The [place] Diabetes Association (ADA) provides guidance for cutoff values for fasting glucose and random glucose. The ADA defines fasting as no caloric intake for at least 8 hours. Fasting plasma glucose results between 100 to 125 mg/dL indicate increased risk for diabetes (prediabetes). Fasting plasma glucose results greater than or equal to 126 mg/dL meet the criteria for diagnosis of diabetes. In the absence of unequivocal hyperglycemia, results should be confirmed by repeat testing. In a patient with classic symptoms of hyperglycemia or hyperglycemic crisis, random plasma glucose results greater than or equal to 200 mg/dL meet the criteria for diagnosis of diabetes. Reference: Standards of Medical Care in Diabetes 2016, [place] Diabetes Association. Diabetes Care. 2016.39(Suppl 1). Performed By: #### 5 7021-8, 3016-3, 89812-7, 24173-8 ####[facility] [id number] [address] [address] [place] Potassium [Moles/Vol] 4.2 mmol/L Normal 3.7-5.1 [facility] Comment on above: Order Comment: Speci men Type: BLOOD SPECIMENOrdering Facility: [facility] Address: [address] [place] [address] Performed By: #### 5 7021-8, 3016-3, 52258-9, 76161-6 ####[facility]IA [id number] [address] [address] [place] Protein [Mass/Vol] 6.4 g/dL Normal 6.3-8.0 [facility] Comment on above: Order Comment: Speci men Type: BLOOD SPECIMENOrdering Facility: [facility] Address: [address] [place] [address] Performed By: #### 5 7021-8, 6-3, 22771-5, 36841-8 ####[facility] [id number] [address] [address] [place] Sodium [Moles/Vol] 141 mmol/L Normal 136-144 [facility] Comment on above: Order Comment: Speci men Type: BLOOD SPECIMENOrdering Facility: [facility] Address: [address] [place] [address] Performed By: #### 5 7021-8, 3016-3, 25575-8, 92752-5 ####[facility] [id number] [address] [address] [place] Urea nitrogen [Mass/Vol] 13 mg/dL Normal 7-21 [facility] Comment on above: Order Comment: Speci men Type: BLOOD SPECIMENOrdering Facility: [facility] Address: [address] [place] [address] Performed By: #### 5 7021-8, 6-3, 13021-8, 63220-2 ####[facility] [id number] [address] [place] [address] [place] Lipid 1996 panelon 5 Cholesterol [Mass/Vol] 197 mg/dL Normal <200 [facility] Comment on above: Order Comment: Speci gerri Type: BLOOD SPECIMENOrdering Facility: [facility] Address: [address] [address] Result Comment: <200 mg/dL, Desirable 200-239 mg/dL, Borderline high >239 mg/dL, High Performed By: #### 5 7021-8, 3016-3, 93729-0, 47309-8 ####[facility] [id number] [address], [facility] [place] Cholesterol in HDL [Mass/Vol] 52 mg/dL Normal >39 [facility] Comment on above: Order Comment: Rauli men Type: BLOOD SPECIMENOrdering Facility: [facility] Address: [address] [address] Result Comment: 40-5 9 mg/dL, Acceptable >59 mg/dL, High: Negative risk factor for coronary heart disease <40 mg/dL, Low: Positive risk factor for coronary heart disease Performed By: #### 5 7021-8, 6-3, 68687-3, 91784-3 ####[facility] [id number] [address] [place] [address] [place] Cholesterol in LDL [Mass/Vol] 119 mg/dL High <100 [facility] Comment on above: Order Comment: Vicky talley Type: BLOOD SPECIMENOrdering Facility: [facility] Address: [address] [address] Result Comment: <100 mg/dL, Optimal 100-129 mg/dL, Near optimal/above optimal 130-159 mg/dL, Borderline high 160-189 mg/dL, High >189 mg/dL, Very high Secondary prevention optimal LDL Cholesterol levels are recommended to be <70 mg/dL LDL cholesterol is calculated using the Davis-NIH equation. Performed By: #### 5 7021-8, 6-3, 12248-1, 69934-3 ####[facility] [id number] [place] [id number] [place] Cholesterol in LDL/Cholesterol in HDL [Mass ratio] 2.29 {ratio} Normal <2.54 [facility] Comment on above: Order Comment: Vicky talley Type: BLOOD SPECIMENOrdering Facility: [facility] Address: [address] [address] Result Comment: Refe rence: 1. National Cholesterol Education Program ATP III Guideline At-A-Glance Quick Desk Reference: National Heart, Lung, and Blood [place]. National Institutes of Health. 2001: NIH Publication No. 01-3305. 2. An International Atherosclerosis Society position paper: global recommendations for the management of dyslipidemia: executive summary, Atherosclerosis. 2014: 232(2):410-413. Performed By: #### 5 7021-8, 3016-3, 49238-7, 70917-6 ####[facility] [id number] [place] [id number] [place] Cholesterol in VLDL [Mass/Vol] 25 mg/dL Normal <30 [facility] Comment on above: Order Comment: Vicky talley Type: BLOOD SPECIMENOrdering Facility: [facility] Address: [address] [address] Performed By: #### 5 7021-8, 3016-3, 51297-0, 51211-5 ####[facility] [id number] [address] [address] [place] Cholesterol non HDL [Mass/Vol] 145 mg/dL High <130 [facility] Comment on above: Order Comment: Rauli men Type: BLOOD SPECIMENOrdering Facility: [facility] Address: [address] [address] Result Comment: <130 mg/dL, Optimal 130-159 mg/dL, Near optimal/above optimal 160-189 mg/dL, Borderline high 190-219 mg/dL, High >219 mg/dL, Very high Secondary prevention optimal non HDL Cholesterol levels are recommended to be <100 mg/dL Performed By: #### 5 7021-8, 3016-3, 72263-7, 69583-6 ####[facility] [id number] [address] [place] [address] [facility] Cholesterol.total/Ch olesterol in HDL [Mass ratio] 3.79 {ratio} Normal <5.10 [facility] Comment on above: Order Comment: Speci men Type: BLOOD SPECIMENOrdering Facility: [facility] Address: [address] [address] Performed By: #### 5 7021-8, 3016-3, 43068-1, 25289-9 ####[facility] [id number] [address] [place] [address] [facility] [place] FASTING TIME 12 hrs Normal [facility] Comment on above: Order Comment: Speci men Type: BLOOD SPECIMENOrdering Facility: [facility] Address: [address] [address] Performed By: #### 5 7021-8, 3016-3, 65798-8, 66695-6 ####[facility] [id number] [address] [place] [address] [place] Triglyceride [Mass/Vol] 146 mg/dL Normal <150 [facility] Comment on above: Order Comment: Speci men Type: BLOOD SPECIMENOrdering Facility: [facility] Address: [address] [place] [address] Result Comment: <150 mg/dL, Normal 150-199 mg/dL, Borderline high 200-499 mg/dL, High >499 mg/dL, Very high Performed By: #### 5 7021-8, 3016-3, 77633-9, 64122-7 ####[facility] [id number] [address] [address] [place] TSH SerPl-aCncon 01-30-2025 TSH Qn 1.860 m[IU]/L Normal 0.270-4.200 [facility] Comment on above: Order Comment: Speci men Type: BLOOD SPECIMENOrdering Facility: [facility] Address: [address] [place] [address] Result Comment: If t he patient is , TSH reference range varies by gestational period: First Trimester (weeks 9-12): 0.180-2.990 mIU/L Second Trimester: 0.110-3.980 mIU/L Third Trimester: 0.480-4.710 mIU/L Henry Shaw et al. A Practical Approach for the Verifications and Determination of Site- and Trimester-Specific Reference Intervals for Thyroid Function tests in . Thyroid, 2019:29:3:412-420. Kali E, et al. 2017 Guidelines of the [place] Thyroid Association for the Diagnosis and Management of Thyroid Disease during and the . Thyroid, 2017:27:3:315-389. Performed By: #### 5 7021-8, 3016-3, 96055-1, 13145-1 ####[facility] [id number] [address] OF [facility] CNOVon 09-06-2024 CNOV Office Visit (WSTR ) ----- MARYSE LOGAN ([id number]) 1980 M Date Time Provider Department 09/06/24 10:00 AM KATHRIN PRITCHETT [facility] During your visit today, we recorded the following information about you: Temperature Pulse Respiration Blood pressure 97.8 degrees 116/minute 18/minute 133/91 Weight 113.5 kg Kathrin Pritchett APRN.CNP 09/06/2024 10:30 AM Signed This note was created using NoteWriter. Subjective Maryse Shaw Darcybarron is a 43 year old adult. 43 year old female with PMH asthma presents for illness. Acute onset yesterday +sore throat +congestion +headache +ear pain +chills +fatigue Denies fever Denies cough Denies SOB or dyspnea Denies abdominal pain Denies N/V/D Has used Sudafed Denies tobacco usage Had COVID 2 weeks ago The history is provided by the patient. No translator interpreter was used. URI He complains of cough. There is no chest tightness, difficulty breathing, frequent throat clearing, hemoptysis, hoarse voice, shortness of breath, sputum production or wheezing. This is a new problem. The current episode started yesterday. The problem occurs constantly. The problem has been unchanged. The cough is non-productive. Associated symptoms include ear congestion, ear pain, headaches, nasal congestion, rhinorrhea, sneezing and a sore throat. Pertinent negatives include no appetite change, chest pain, dyspnea on exertion, fever, heartburn, malaise/fatigue, myalgias, orthopnea, PND, postnasal drip, sweats, trouble swallowing or weight loss. His symptoms are aggravated by nothing. His symptoms are alleviated by nothing. He reports no improvement on treatment. There are no known risk factors for lung disease. His past medical history is significant for asthma. There is no history of bronchiectasis, bronchitis, COPD, emphysema or pneumonia. PAST MEDICAL HISTORY Diagnosis Date Attention deficit disorder without mention of hyperactivity Obesity, unspecified Other and unspecified ovarian cyst Unspecified asthma(493.90) PAST SURGICAL HISTORY Procedure Laterality Date COLONOSCOPY SCREENING 01/2024 every 10 year EGD W/O [facility] SPEC VARICIES INJ 01/2024 EXTRACTION ERUPTED TOOTH/EXR FIBROSCAN 02/2024 liver HYSTEROSCOPY REMOVAL LEIOMYOMATA 04/05/2024 and Breana endometrial ablation IUD REMOVAL/INSERTION PROCEDURE (W NOTE) removed 2021 approx MYRINGOTOMY ASPIRAND/EUSTACHIAN TUBE NFLTJ ANES Myringotomy/tubes ALLERGIES Seldane and Suprax [Cefixime] MEDICATIONS amoxicillin (AMOXIL) 875 mg tablet Take 1 tablet by mouth two times a day for 7 days. metFORMIN (GLUCOPHAGE) 500 mg tablet Take 500 mg by mouth. NOT STARTED YET fluticasone-salmeterol (ADVAIR DISKUS) 100-50 mcg/dose inhaler 1 Puff. LORazepam (ATIVAN) 0.5 mg 1 tablet Orally Twice a day prn F41.1 MAGNESIUM ORAL Take by mouth. cholecalciferol, vitamin D3, (VITAMIN D3 ORAL) Take by mouth. TURMERIC ORAL Take by mouth. MULTIVITAMIN ORAL Take by mouth. clobetasol (TEMOVATE) 0.05 % ointment Apply to affected area as needed (flare up). fexofenadine HCl (TITA ORAL) Take by mouth. citalopram (CELEXA) 20 mg tablet montelukast (SINGULAIR) 10 mg tablet Take 1 tablet by mouth daily at bedtime. fluticasone (FLOVENT HFA) 110 mcg/actuation inhaler Inhale 2 Puffs as instructed twice daily. albuterol HFA (PROAIR HFA) 90 mcg/actuation inhaler Inhale 2 Puffs as instructed every 4 hours as needed. FAMILY HISTORY Problem Relation Age of Onset Diabetes Mother type 2 Alcohol/Drug Sister Social History Tobacco Use Smoking status: Never Smokeless tobacco: Never Vaping Use Vaping status: Never Used Substance Use Topics Alcohol use: No Drug use: No Review of Systems Constitutional: Positive for fatigue. Negative for appetite change, fever, malaise/fatigue and weight loss. HENT: Positive for ear pain, rhinorrhea, sneezing and sore throat. Negative for congestion, hoarse voice, postnasal drip and trouble swallowing. Eyes: Negative for pain, discharge and itching. Respiratory: Positive for cough. Negative for apnea, hemoptysis, sputum production, chest tightness, shortness of breath and wheezing. Cardiovascular: Negative for chest pain, dyspnea on exertion and PND. Gastrointestinal: Negative for abdominal pain, diarrhea, heartburn, nausea and vomiting. Musculoskeletal: Negative for arthralgias, back pain, gait problem and myalgias. Skin: Negative for color change, pallor, rash and wound. Allergic/Immunologic: Negative for environmental allergies, food allergies and immunocompromised state. Neurological: Positive for headaches. Negative for dizziness, facial asymmetry and light-headedness. Hematological: Positive for adenopathy. Does not bruise/bleed easily. Psychiatric/Behavioral: Negative for agitation and behavioral problems. Objective BP 133/91 Pulse 116 Temp 36.6 ?C ( (more content not included)... Normal [facility] STREP A MOLECULAR (POC)on Procedural Control Valid [facility] Strep A (POCT) Negative Negative [facility] 25(OH)D3 SerPl-mCncon 2023 25-hydroxyvitamin D3 [Mass/Vol] 28.2 ng/mL Low 31.0-80.0 [facility] Comment on above: Order Comment: Speci men Type: BLOOD SPECIMEN [facility] Facility: [facility] Address: [address] [place] [address] Result Comment: Clas sification of 25 [place] Vitamin D status: Deficiency/Insufficiency: < or = 30 ng/ml. Sufficiency/Optimal Levels: 31-80 ng/mL Toxicity: > 100 ng/mL. Test performed by chemiluminescent immunoassay. Performed By: #### 1 989-3 #### [facility] CLIA [id number] [address] [place] [address] [place] A-Tocopherol Vit E [facility] 08-10-2024 Alpha tocopherol [Mass/Vol] Normal [facility] Comment on above: Order Comment: Speci men Type: BLOOD SPECIMENOrdering Facility: [facility] Address: [address] [place] [address] Result Comment: 14.0 mg/L Test performed at [facility] in [place], [place]. Disregard [facility] reference range. [facility] Vitamin E alpha reference range is: 5.5-18.0 mg/L. [facility] Vitamin E gamma reference range is: 0.0-6.0 mg/L. This test was developed and its performance characteristics determined by [employer] [facility]. It has not been cleared or approved by the US Food and Drug Administration. This test was performed in a CLIA certified laboratory and is intended for clinical purposes. Performed By: #### 1 823-4, 2923-1 ####[facility] [id number] [place] [address] [place] ALLERGY FOOD PANEL IGGon BARLEY IGG 4.89 mcg/mL Normal <=20.30 [facility] Comment on above: Order Comment: Speci men Type: BLOOD SPECIMENOrdering Facility: [facility] Address: [address] [place] [address] Result Comment: INTE RPRETIVE INFORMATION: Allergen, Food, Barley IgG Values less than 2.00 mcg/mL represent absent or undetectable levels of allergen-specific IgG antibody. This test was developed and its performance characteristics determined by [employer] [facility]. It has not been cleared or approved by the [place] Food and Drug Administration. This test was performed in a CLIA certified laboratory and is intended for clinical purposes. Performed By: #### F BRIDGER, RHEUMA, LEPTIN ####[facility] [id number] [place] [address] BEEF IGG 12.10 mcg/mL Normal <=22.00 [facility] Comment on above: Order Comment: Speci men Type: BLOOD SPECIMENOrdering Facility: [facility] Address: [address] [place] [address] Result Comment: INTE RPRETIVE INFORMATION: Allergen, Food, Beef IgG Values less than 2.00 mcg/mL represent absent or undetectable levels of allergen-specific IgG antibody. This test was developed and its performance characteristics determined by [employer] [facility]. It has not been cleared or approved by the US Food and Drug Administration. This test was performed in a CLIA certified laboratory and is intended for clinical purposes. Performed By: #### F BRIDGER, RHEUMA, LEPTIN ####[facility] [id number] [place] [address] CACAO(CHOCOLATE) IGG 2.09 mcg/mL Normal <=20.40 [facility] Comment on above: Order Comment: Speci men Type: BLOOD SPECIMENOrdering Facility: [facility] Address: [address] [place] [address] Result Comment: INTE RPRETIVE INFORMATION: Allergen, Food, Chocolate IgG Values less than 2.00 mcg/mL represent absent or undetectable levels of allergen-specific IgG antibody. This test was developed and its performance characteristics determined by [employer] [facility]. It has not been cleared or approved by the US Food and Drug Administration. This test was performed in a CLIA certified laboratory and is intended for clinical purposes. Performed By: #### F BRIDGER, RHEUMA, LEPTIN ####[facility]IESCLIA [id number] [place] [address] CASEIN IGG <2.00 Normal <=38.69 [facility] Comment on above: Order Comment: Speci men Type: BLOOD SPECIMENOrdering Facility: [facility] Address: [address] [place] [address] Result Comment: INTE RPRETIVE INFORMATION: Allergen, Food, Casein (Cow's Milk) IgG Values less than 2.00 mcg/mL represent absent or undetectable levels of allergen-specific IgG antibody. This test was developed and its performance characteristics determined by [employer] [facility]. It has not been cleared or approved by the US Food and Drug Administration. This test was performed in a CLIA certified laboratory and is intended for clinical purposes. Performed By: #### F BRIDGER, RHEUMA, LEPTIN ####[facility]IESCLIA [id number] [place] [address] CHICKEN MEAT IGG <2.00 Normal <=6.24 [facility] Comment on above: Order Comment: Speci men Type: BLOOD SPECIMENOrdering Facility: [facility] Address: [address] [place] [address] Result Comment: INTE RPRETIVE INFORMATION: Allergen, Food, Chicken IgG Values less than 2.00 mcg/mL represent absent or undetectable levels of allergen-specific IgG antibody. This test was developed and its performance characteristics determined by [employer] [facility]. It has not been cleared or approved by the US Food and Drug Administration. This test was performed in a CLIA certified laboratory and is intended for clinical purposes. Performed By: #### F BRIDGER, RHEUMA, LEPTIN ####[facility]IESCLIA [id number] [place] [address] CORN IGG 4.67 mcg/mL Normal <=10.49 [facility] Comment on above: Order Comment: Speci men Type: BLOOD SPECIMENOrdering Facility: [facility] Address: [address] [place] [address] Result Comment: INTE RPRETIVE INFORMATION: Allergen, Food, Hannibal IgG Values less than 2.00 mcg/mL represent absent or undetectable levels of allergen-specific IgG antibody. This test was developed and its performance characteristics determined by [employer] [facility]. It has not been cleared or approved by the US Food and Drug Administration. This test was performed in a CLIA certified laboratory and is intended for clinical purposes. Performed By: #### F BRIDGER, RHEUMA, LEPTIN ####[facility]IESCLIA [id number] [place] [address] EGG WHITE IGG <2.00 Normal <=15.69 [facility] Comment on above: Order Comment: Speci men Type: BLOOD SPECIMENOrdering Facility: [facility] Address: [address] [place] [address] Result Comment: INTE RPRETIVE INFORMATION: Allergen, Food, Egg White IgG Values less than 2.00 mcg/mL represent absent or undetectable levels of allergen-specific IgG antibody. This test was developed and its performance characteristics determined by [employer] [facility]. It has not been cleared or approved by the US Food and Drug Administration. This test was performed in a CLIA certified laboratory and is intended for clinical purposes. Performed By: #### F CYNTHIA SPARKS, LEPTIN ####[facility]IA [id number] [place] [address] LETTUCE IGG <2.00 Normal <=11.30 [facility] Comment on above: Order Comment: Speci men Type: BLOOD SPECIMENOrdering Facility: [facility] Address: [address] [place] [address] Result Comment: INTE RPRETIVE INFORMATION: Allergen, Food, Lettuce IgG Values less than 2.00 mcg/mL represent absent or undetectable levels of allergen-specific IgG antibody. This test was developed and its performance characteristics determined by [employer] [facility]. It has not been cleared or approved by the US Food and Drug Administration. This test was performed in a CLIA certified laboratory and is intended for clinical purposes. Performed By: #### F BRIDGER, RHEUMA, LEPTIN ####[facility] [id number] [place] [address] MALT IGG 9.51 mcg/mL Normal <=22.30 [facility] Comment on above: Order Comment: Speci men Type: BLOOD SPECIMENOrdering Facility: [facility] Address: [address] [place] [address] Result Comment: INTE RPRETIVE INFORMATION: Allergen, Food, Malt IgG Values less than 2.00 mcg/mL represent absent or undetectable levels of allergen-specific IgG antibody. This test was developed and its performance characteristics determined by [employer] [facility]. It has not been cleared or approved by the US Food and Drug Administration. This test was performed in a CLIA certified laboratory and is intended for clinical purposes. Performed By: #### F BRIDGER, RHEUMA, LEPTIN ####[facility]IESCLIA [id number] [place] [address] OAT IGG 3.89 mcg/mL Normal <=13.29 [facility] Comment on above: Order Comment: Speci men Type: BLOOD SPECIMENOrdering Facility: [facility] Address: [address] [place] [address] Result Comment: INTE RPRETIVE INFORMATION: Allergen, Food, Oat IgG Values less than 2.00 mcg/mL represent absent or undetectable levels of allergen-specific IgG antibody. This test was developed and its performance characteristics determined by [employer] [facility]. It has not been cleared or approved by the [place] Food and Drug Administration. This test was performed in a CLIA certified laboratory and is intended for clinical purposes. Performed By: #### F BRIDGER, RHEUMA, LEPTIN ####[facility]IESCLIA [id number] [place] [address] ORANGE IGG <2.00 Normal <=8.64 [facility] Comment on above: Order Comment: Speci men Type: BLOOD SPECIMENOrdering Facility: [facility] Address: [address] [place] [address] Result Comment: INTE RPRETIVE INFORMATION: Allergen, Food, Joanna IgG Values less than 2.00 mcg/mL represent absent or undetectable levels of allergen-specific IgG antibody. This test was developed and its performance characteristics determined by [employer] [facility]. It has not been cleared or approved by the US Food and Drug Administration. This test was performed in a CLIA certified laboratory and is intended for clinical purposes. Performed By: #### F BRIDGER, RHEUMA, LEPTIN ####[facility]IESCLIA [id number] [place] [address] PEANUT IGG <2.00 Normal <=6.79 [facility] Comment on above: Order Comment: Speci men Type: BLOOD SPECIMENOrdering Facility: [facility] Address: [address] [place] [address] Result Comment: INTE RPRETIVE INFORMATION: Allergen, Food, Peanut IgG Values less than 2.00 mcg/mL represent absent or undetectable levels of allergen-specific IgG antibody. This test was developed and its performance characteristics determined by [employer] [facility]. It has not been cleared or approved by the US Food and Drug Administration. This test was performed in a CLIA certified laboratory and is intended for clinical purposes. Performed By: #### F BRIDGER, RHEUMA, LEPTIN ####[facility]IESCLIA [id number] [place] [address] PORK IGG <2.00 Normal <=7.91 [facility] Comment on above: Order Comment: Speci men Type: BLOOD SPECIMENOrdering Facility: [facility] Address: [address] [place] [address] Result Comment: INTE RPRETIVE INFORMATION: Allergen, Food, Pork IgG Values less than 2.00 mcg/mL represent absent or undetectable levels of allergen-specific IgG antibody. This test was developed and its performance characteristics determined by [employer] [facility]. It has not been cleared or approved by the US Food and Drug Administration. This test was performed in a CLIA certified laboratory and is intended for clinical purposes. Performed By: #### F BRIDGER, RHEUMA, LEPTIN ####[facility]IESCLIA [id number] [place] [address] POTATO IGG <2.00 Normal <=6.08 [facility] Comment on above: Order Comment: Speci men Type: BLOOD SPECIMENOrdering Facility: [facility] Address: [address] [place] [address] Result Comment: INTE RPRETIVE INFORMATION: Allergen, Food, Potato White IgG Values less than 2.00 mcg/mL represent absent or undetectable levels of allergen-specific IgG antibody. This test was developed and its performance characteristics determined by [employer] [facility]. It has not been cleared or approved by the US Food and Drug Administration. This test was performed in a CLIA certified laboratory and is intended for clinical purposes. Performed By: #### F BRIDGER, RHEUMA, LEPTIN ####[facility]IESCLIA [id number] [place] [address] RYE IGG 3.77 mcg/mL Normal <=26.70 [facility] Comment on above: Order Comment: Speci men Type: BLOOD SPECIMENOrdering Facility: [facility] Address: [address] [place] [address] Result Comment: INTE RPRETIVE INFORMATION: Allergen, Food, Ulm IgG Values less than 2.00 mcg/mL represent absent or undetectable levels of allergen-specific IgG antibody. This test was developed and its performance characteristics determined by [employer] [facility]. It has not been cleared or approved by the US Food and Drug Administration. This test was performed in a CLIA certified laboratory and is intended for clinical purposes. Performed By: #### F BRIDGER RHEUMA, LEPTIN ####[facility]IESCLIA [id number] [place] [address] SOYBEAN IGG <2.00 Normal <=5.29 [facility] Comment on above: Order Comment: Speci men Type: BLOOD SPECIMENOrdering Facility: [facility] Address: [address] [place] [address] Result Comment: INTE RPRETIVE INFORMATION: Allergen, Food, Soybean IgG Values less than 2.00 mcg/mL represent absent or undetectable levels of allergen-specific IgG antibody. This test was developed and its performance characteristics determined by [employer] [facility]. It has not been cleared or approved by the US Food and Drug Administration. This test was performed in a CLIA certified laboratory and is intended for clinical purposes. Performed By: #### F CYNTHIA SPARKS, LEPTIN ####[facility]IESCLIA [id number] [place] [address] TOMATO IGG <2.00 Normal <=7.19 [facility] Comment on above: Order Comment: Speci men Type: BLOOD SPECIMENOrdering Facility: [facility] Address: [address] [place] [address] Result Comment: INTE RPRETIVE INFORMATION: Allergen, Food, Tomato IgG Values less than 2.00 mcg/mL represent absent or undetectable levels of allergen-specific IgG antibody. This test was developed and its performance characteristics determined by [employer] [facility]. It has not been cleared or approved by the US Food and Drug Administration. This test was performed in a CLIA certified laboratory and is intended for clinical purposes. Performed By: #### F BRIDGER, RHEUMA, LEPTIN ####[facility]IESCLIA [id number] [place] [address] WHEAT IGG 4.53 mcg/mL Normal <=60.19 [facility] Comment on above: Order Comment: Speci men Type: BLOOD SPECIMENOrdering Facility: [facility] Address: [address] [place] [address] Result Comment: INTE RPRETIVE INFORMATION: Allergen, Food, Wheat IgG Values less than 2.00 mcg/mL represent absent or undetectable levels of allergen-specific IgG antibody. This test was developed and its performance characteristics determined by [employer] [facility]. It has not been cleared or approved by the US Food and Drug Administration. This test was performed in a CLIA certified laboratory and is intended for clinical purposes. Performed By: #### F BRIDGER, RHEUMA, LEPTIN ####[facility] LABORATORIESCLIA [id number] [place] [address] YEAST (BAKERS/BREWERS) IGG <2.00 Normal <=11.40 [facility] Comment on above: Order Comment: Speci [facility] Type: BLOOD SPECIMENOrdering Facility: [facility] Address: [address] [place] [address] Result Comment: INTE RPRETIVE INFORMATION: Allergen, Food, Fair's Yeast IgG Values less than 2.00 mcg/mL represent absent or undetectable levels of allergen-specific IgG antibody. This test was developed and its performance characteristics determined by [employer] [facility]. It has not been cleared or approved by the US Food and Drug Administration. This test was performed in a CLIA certified laboratory and is intended for clinical purposes. Performed By: #### F BRIDGER, RHEUMA, LEPTIN ####[facility]IESCLIA [id number] [place] [address] APOLIPOPROTEIN A+Bon 08-10- 024 Apolipoprotein A-I [Mass/Vol] 206 mg/dL 114 - PINF mg/dL [facility] Apolipoprotein B [Mass/Vol] 97 mg/dL High NINF - 90 mg/dL [facility] Apolipoprotein B/A-1 Ratio 0.5 NINF - 0.7 [facility] Interpretation and review of laboratory results Abnormal [facility] Apolipoprotein A-I [Mass/Vol] 206 mg/dL Normal >114 [facility] Comment on above: Order Comment: Speci [facility] Type: BLOOD SPECIMENOrdering Facility: [facility] Address: [address] [place] [address] Performed By: #### A POAB ####[facility] LABCLIA [id number] [place] [address] [place] Apolipoprotein B [Mass/Vol] 97 mg/dL High <90 [facility] Comment on above: Order Comment: Speci men Type: BLOOD SPECIMENOrdering Facility: [facility] Address: [address] [place] [address] Performed By: #### A POAB ####[facility] LABCLIA [id number] [place] [address] [place] APOLIPOPROTEIN B/A-1 RATIO 0.5 Normal <0.7 [facility] Comment on above: Order Comment: Speci men Type: BLOOD SPECIMENOrdering Facility: [facility] Address: [address] [place] [address] Performed By: #### A POAB ####[facility] LABCLIA [id number] [place] [address] [place] ARSENIC BLDon 08-10-2024 ARSENIC, BLOOD <10.0 Normal <=12.0 [facility] Comment on above: Order Comment: Speci men Type: BLOOD SPECIMENOrdering Facility: [facility] Address: [address] [place] [address] Result Comment: INTE RPRETIVE INFORMATION: Arsenic, Blood Elevated results may be due to skin or collection-related contamination, including the use of a noncertified metal-free collection/transport tube. If contamination concerns exist due to elevated levels of blood arsenic, confirmation with a second specimen collected in a certified metal-free tube is recommended. Potentially toxic ranges for blood arsenic: Greater than or equal to 600 ug/L. Blood arsenic is for the detection of recent exposure poisoning only. Blood arsenic levels in healthy subjects vary considerably with exposure to arsenic in the diet and the environment. A 24-hour urine arsenic is useful for the detection of chronic exposure. This test was developed and its performance characteristics determined by [employer] [facility]. It has not been cleared or approved by the [place] Food and Drug Administration. This test was performed in a CLIA certified laboratory and is intended for clinical purposes. Performed By: [facility] [address] [place] [address] Cost Engineer: Ramon Ovalle MD, PhD [facility] Number: [id number] Performed By: #### A SB ####[facility] LABORATORIESIA [id number] [place] [address] Alpha tocopherol [Mass/Vol]o n 08-10-2024 Beta+gamma tocopherol [Mass/Vol] Normal [facility] Comment on above: Order Comment: Speci men Type: BLOOD SPECIMENOrdering Facility: [facility] Address: [address] [place] [address] Result Comment: 1.7 mg/L Test performed at [facility] [employer] in [place], [place]. Disregard [facility] reference range. [facility] Vitamin E alpha reference range is: 5.5-18.0 mg/L. [facility] Vitamin E gamma reference range is: 0.0-6.0 mg/L. This test was developed and its performance characteristics determined by [employer] [facility]. It has not been cleared or approved by the US Food and Drug Administration. This test was performed in a CLIA certified laboratory and is intended for clinical purposes. Performed By: #### 1 823-4, 2923-1 ####[facility] LABCLIA [id number] [place] [address] [place] CBC W Auto Differential pane l (Bld)on 08-10-2024 Basophils (Bld) [#/Vol] 0.03 10*3/uL [facility] Basophils/100 WBC (Bld) 0.3 % [facility] Differential cell count method Nom (Bld) Auto [facility] Eosinophils (Bld) [#/Vol] 0.15 10*3/uL [facility] Eosinophils/100 WBC (Bld) 1.3 % [facility] Erythrocyte distribution width (RBC) [Ratio] 13.8 % 11.5 - 15.0 % [facility] Hematocrit (Bld) [Volume fraction] 41.2 % 39.0 - 51.0 % [facility] Hemoglobin (Bld) [Mass/Vol] 13.4 g/dL 13.0 - 17.0 g/dL [facility] Immature granulocytes (Bld) [#/Vol] 0.06 10*3/uL [facility] Immature granulocytes/100 WBC (Bld) 0.5 % [facility] Interpretation and review of laboratory results Abnormal [facility] Lymphocytes (Bld) [#/Vol] 2.76 10*3/uL [facility] Lymphocytes/100 WBC (Bld) 24.2 % [facility] MCH (RBC) [Entitic mass] 27.7 pg 26.0 - 34.0 pg [facility] MCHC (RBC) [Mass/Vol] 32.5 g/dL 30.5 - 36.0 g/dL [facility] MCV (RBC) [Entitic vol] 85.1 fL 80.0 - 100.0 fL [facility] Monocytes (Bld) [#/Vol] 0.76 10*3/uL [facility] Monocytes/100 WBC (Bld) 6.7 % [facility] Neutrophils (Bld) [#/Vol] 7.65 10*3/uL High [facility] Neutrophils/100 WBC (Bld) 67.0 % [facility] Nucleated RBC (Bld) [#/Vol] [facility] Nucleated RBC/100 WBC (Bld) [Ratio] 0.0 % /100 WBC [facility] Platelet mean volume (Bld) [Entitic vol] 9.5 fL 9.0 - 12.7 fL [facility] Platelets (Bld) [#/Vol] 336 10*3/uL [facility] RBC (Bld) [#/Vol] 4.84 10*6/uL 4.20 - 6.0 0 m/uL [facility] WBC (Bld) [#/Vol] 11.41 10*3/uL High [facility] Basophils (Bld) [#/Vol] 0.03 10*3/uL Normal <0.11 [facility] Comment on above: Order Comment: Speci men Type: BLOOD SPECIMENOrdering Facility: [facility] Address: [address] [place] [address] Performed By: #### 5 7021-8, 4537-7 ####[facility] LABCLIA [id number] [id number] [address] [place] Basophils/100 WBC (Bld) 0.3 % Normal [facility] Comment on above: Order Comment: Speci men Type: BLOOD SPECIMENOrdering Facility: [facility] Address: [address] [place] [address] Performed By: #### 5 7021-8, 7 ####[facility] [id number] [place] [address] [place] Differential cell count method Nom (Bld) Auto Normal [facility] Comment on above: Order Comment: Speci men Type: BLOOD SPECIMENOrdering Facility: [facility] Address: [address] [place] [address] Performed By: #### 5 7021-8, 7 ####[facility] [id number] [place] [address] [place] Eosinophils (Bld) [#/Vol] 0.15 10*3/uL Normal <0.46 [facility] Comment on above: Order Comment: Speci men Type: BLOOD SPECIMENOrdering Facility: [facility] Address: [address] [place] [address] Performed By: #### 5 7021-8, 4537-02 ####[facility] [id number] [place] [address] [place] Eosinophils/100 WBC (Bld) 1.3 % Normal [facility] Comment on above: Order Comment: Speci men Type: BLOOD SPECIMENOrdering Facility: [facility] Address: [address] [place] [address] Performed By: #### 5 7021-8, 7 ####[facility] [id number] [place] [address] [place] Erythrocyte distribution width (RBC) [Ratio] 13.8 % Normal 11.5-15.0 [facility] Comment on above: Order Comment: Speci men Type: BLOOD SPECIMENOrdering Facility: [facility] Address: [address] [place] [address] Performed By: #### 5 7021-8, 7-7 ####[facility] [id number] [place] [address] [place] Hematocrit (Bld) [Volume fraction] 41.2 % Normal 39.0-51.0 [facility] Comment on above: Order Comment: Speci men Type: BLOOD SPECIMENOrdering Facility: [facility] Address: [address] [place] [address] Performed By: #### 5 7021-8, 4536-7 ####[facility] [id number] [place] [address] [place] Hemoglobin (Bld) [Mass/Vol] 13.4 g/dL Normal 13.0-17.0 [facility] Comment on above: Order Comment: Speci men Type: BLOOD SPECIMENOrdering Facility: [facility] Address: [address] [place] [address] Performed By: #### 5 7021-8, 4536-7 ####[facility] [id number] [place] [address] [place] Immature granulocytes (Bld) [#/Vol] 0.06 10*3/uL Normal <0.10 [facility] Comment on above: Order Comment: Speci men Type: BLOOD SPECIMENOrdering Facility: [facility] Address: [address] [place] [address] Performed By: #### 5 7021-8, 4536-7 ####[facility] [id number] [place] [address] [place] Immature granulocytes/100 WBC (Bld) 0.5 % Normal [facility] Comment on above: Order Comment: Speci men Type: BLOOD SPECIMENOrdering Facility: [facility] Address: [address] [place] [address] Performed By: #### 5 7021-8, 7-7 ####[facility] [id number] [place] [address] [place] Lymphocytes (Bld) [#/Vol] 2.76 10*3/uL Normal 1.00-4.00 [facility] Comment on above: Order Comment: Speci men Type: BLOOD SPECIMENOrdering Facility: [facility] Address: [address] [place] [address] Performed By: #### 5 7021-8, 4536-7 ####[facility] [id number] [place] [address] [place] Lymphocytes/100 WBC (Bld) 24.2 % Normal [facility] Comment on above: Order Comment: Speci men Type: BLOOD SPECIMENOrdering Facility: [facility] Address: [address] [place] [address] Performed By: #### 5 7021-8, 4536-7 ####[facility]IA [id number] [place] [address] [place] MCH (RBC) [Entitic mass] 27.7 pg Normal 26.0-34.0 [facility] Comment on above: Order Comment: Speci men Type: BLOOD SPECIMENOrdering Facility: [facility] Address: [address] [place] [address] Performed By: #### 5 7021-8, 4536-7 ####[facility] [id number] [place] [address] [place] MCHC (RBC) [Mass/Vol] 32.5 g/dL Normal 30.5-36.0 [facility] Comment on above: Order Comment: Speci men Type: BLOOD SPECIMENOrdering Facility: [facility] Address: [address] [place] [address] Performed By: #### 5 7021-8, 4537-7 ####[facility] [id number] [place] [address] [place] MCV (RBC) [Entitic vol] 85.1 fL Normal 80.0-100.0 [facility] Comment on above: Order Comment: Speci men Type: BLOOD SPECIMENOrdering Facility: [facility] Address: [address] [place] [address] Performed By: #### 5 7021-8, 4537-7 ####[facility] [id number] [place] [address] [place] Monocytes (Bld) [#/Vol] 0.76 10*3/uL Normal <0.87 [facility] Comment on above: Order Comment: Speci men Type: BLOOD SPECIMENOrdering Facility: [facility] Address: [address] [place] [address] Performed By: #### 5 7021-8, 4537-7 ####[facility] [id number] [place] [address] [place] Monocytes/100 WBC (Bld) 6.7 % Normal [facility] Comment on above: Order Comment: Speci men Type: BLOOD SPECIMENOrdering Facility: [facility] Address: [address] [place] [address] Performed By: #### 5 7021-8, 4536-7 ####[facility] [id number] [place] [address] [place] Neutrophils (Bld) [#/Vol] 7.65 10*3/uL High 1.45-7.50 [facility] Comment on above: Order Comment: Speci men Type: BLOOD SPECIMENOrdering Facility: [facility] Address: [address] [place] [address] Performed By: #### 5 7021-8, 4537-7 ####[facility] [id number] [place] [address] [place] Neutrophils/100 WBC (Bld) 67.0 % Normal [facility] Comment on above: Order Comment: Speci men Type: BLOOD SPECIMENOrdering Facility: [facility] Address: [address] [place] [address] Performed By: #### 5 7021-8, 4537-7 ####[facility] [id number] [place] [address] [place] Nucleated RBC (Bld) [#/Vol] 10*3/uL Normal <0.01 [facility] Comment on above: Order Comment: Speci men Type: BLOOD SPECIMENOrdering Facility: [facility] Address: [address] [place] [address] Performed By: #### 5 7021-8, 4537-7 ####[facility] [id number] [place] [address] [place] Nucleated RBC/100 WBC (Bld) [Ratio] 0.0 /100 WBC Normal [facility] Comment on above: Order Comment: Speci men Type: BLOOD SPECIMENOrdering Facility: [facility] Address: [address] [place] [address] Performed By: #### 5 7021-8, 7-7 ####[facility]IA [id number] [place] [address] [place] Platelet mean volume (Bld) [Entitic vol] 9.5 fL Normal 9.0-12.7 [facility] Comment on above: Order Comment: Speci men Type: BLOOD SPECIMENOrdering Facility: [facility] Address: [address] [place] [address] Performed By: #### 5 7021-8, 4537-7 ####[facility] [id number] [place] [address] [place] Platelets (Bld) [#/Vol] 336 10*3/uL Normal 150-400 [facility] Comment on above: Order Comment: Speci men Type: BLOOD SPECIMENOrdering Facility: [facility] Address: [address] [place] [address] Performed By: #### 5 7021-8, 4537-7 ####[facility]IA [id number] [place] [address] [place] RBC (Bld) [#/Vol] 4.84 10*6/uL Normal 4.20-6.00 [facility] Comment on above: Order Comment: Speci men Type: BLOOD SPECIMENOrdering Facility: [facility] Address: [address] [place] [address] Performed By: #### 5 7021-8, 4537-7 ####[facility]IA [id number] [place] [address] [place] WBC (Bld) [#/Vol] 11.41 10*3/uL High 3.70-11.00 [facility] Comment on above: Order Comment: Speci men Type: BLOOD SPECIMENOrdering Facility: [facility] Address: [address] [place] [address] Performed By: #### 5 7021-8, 4537-7 ####[facility]IA [id number] [place] [address] [place] CNOVon 08-10-2024 CNOV Office Visit (MEDN ) ----- MARYSE LOGAN ([id number]) 1980 M Date Time Provider Department 08/10/24 8:00 [facility] During your visit today, we recorded the following information about you: Pulse Blood pressure Weight Height 79/minute 127/86 114.2 kg 1.6 m Fanta Lance MD 08/10/2024 10:21 AM Signed FUNCTIONAL MEDICINE INITIAL ASSESSMENT Patient: Maryse Logan ALLERGIES Allergen Reactions Seldane Rash Suprax [Cefixime] Rash Current Outpatient Medications Medication Sig Dispense Refill metFORMIN (GLUCOPHAGE) 500 mg tablet Take 500 mg by mouth. fluticasone-salmeterol (ADVAIR DISKUS) 100-50 mcg/dose inhaler 1 Puff. LORazepam (ATIVAN) 0.5 mg 1 tablet Orally Twice a day prn F41.1 MAGNESIUM ORAL Take by mouth. cholecalciferol, vitamin D3, (VITAMIN D3 ORAL) Take by mouth. TURMERIC ORAL Take by mouth. MULTIVITAMIN ORAL Take by mouth. clobetasol (TEMOVATE) 0.05 % ointment Apply to affected area. fexofenadine HCl (TITA ORAL) Take by mouth. citalopram (CELEXA) 20 mg tablet montelukast (SINGULAIR) 10 mg tablet Take 1 tablet by mouth daily at bedtime. 30 tablet 0 albuterol HFA (PROVENTIL HFA, VENTOLIN HFA) 90 mcg/actuation inhaler Inhale 2 Puffs as instructed every 4 hours as needed. 1 Inhaler 0 fluticasone (FLOVENT HFA) 110 mcg/actuation inhaler Inhale 2 Puffs as instructed twice daily. 1 Inhaler 5 albuterol HFA (PROAIR HFA) 90 mcg/actuation inhaler Inhale 2 Puffs as instructed every 4 hours as needed. 1 Inhaler 0 No current facility-administered medications for this visit. PAST MEDICAL HISTORY Diagnosis Date Attention deficit disorder without mention of hyperactivity Obesity, unspecified Other and unspecified ovarian cyst Unspecified asthma(493.90) PAST SURGICAL HISTORY Procedure Laterality Date COLONOSCOPY SCREENING 01/2024 every 10 year EGD W/O BRSH SPEC VARICIES INJ 01/2024 EXTRACTION ERUPTED TOOTH/EXR FIBROSCAN 02/2024 liver HYSTEROSCOPY REMOVAL LEIOMYOMATA 04/05/2024 and Breana endometrial ablation IUD REMOVAL/INSERTION PROCEDURE (W NOTE) removed 2021 approx MYRINGOTOMY ASPIRAND/EUSTACHIAN TUBE NFLTJ ANES Myringotomy/tubes Social History Tobacco Use Smoking status: Never Smokeless tobacco: Never Vaping Use Vaping status: Never Used Substance Use Topics Alcohol use: No Drug use: No EVALUATION Patient Entered Questionnaire PROMIS Scale T-Scores -- HIGHER SCORES BETTER Patient presents with: New Patient: Referred here. Liver disease, weight issues. 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 This high level of commitment indicates a demanding schedule, which may impact stress levels. - The patient resides with a spouse who is a pescetarian and follows a vegetarian diet with occasional seafood. - The patient is responsible for cooking meals at home and does not consume dairy as it induces vomiting. - Nutritional intake includes a variety of vegetables, seafood, and grains to accommodate the spouse's dietary preferences and personal decisions to avoid certain foods. - The patient has lost weight from approximately 280 lbs to 251 lbs through dietary changes since April 2024, including adopting principles from the Pegan diet. Functional Medicine History The patient is a 43-year-old male presenting with concerns related to liver disease, obesity, and dietary management. The patient reports being diagnosed with liver disease in April following routine medical investigations that revealed fatty infiltration of the liver (seen by GI in [place], [place]). Since this diagnosis, the patient has implemented significant dietary changes based on a recommendation from a colleague, resulting in substantial weight loss. Previously, the patient weighed nearly 280 lbs and now reports weighing 251 lbs. The patient attributes these changes to following dietary recommendations from the Pegan diet. The patient reports managing multiple health issues, including morbid obesity, asthma, poorly balanced diet, and essential fatty acid deficiency. The patient's diet was previously unbalanced, often including fast food due to time constraints. The current dietary approach has mitigated symptoms associated with previous gut health issues, including GERD and abdominal bloating, which the patient experienced before. The patient highlights avoiding dairy as it now causes adverse reactions. The patient's medical background includes several psychosocial and stress-related factors. The patient has a history of asthma, anxiety, and alopecia, believed to be associated with a stressful job environment before changing to a less stressful occupation. Additionally, the patient ackno (more content not included)... Normal [facility] COPPER BLOODon 08-10-2024 Copper [Mass/Vol] 132 ug/dL Normal [facility] Comment on above: Order Comment: Speci men Type: BLOOD SPECIMENOrdering Facility: [facility] Address: [address] [place] [address] Result Comment: This test was developed, and its performance characteristics determined by the [facility] Department of Pathology and Laboratory Medicine. It has not been cleared or approved by the FDA. The [facility] Department of Pathology and Laboratory Medicine is regulated under CLIA as qualified to perform high-complexity testing. This test is used for clinical purposes. It should not be regarded as investigational or for research. Performed By: #### C REMEDIOS, 5763-8 ####[facility] [id number] [place] [address] [place] CRP SerPl HS-mCncon 08-10-20 CRP High sensitivity method [Mass/Vol] 12.5 mg/L High <3.1 [facility] Comment on above: Order Comment: Speci men Type: BLOOD SPECIMENOrdering Facility: [facility] Address: [address] [place] [address] Result Comment: hsCR P < 1.0 mg/L, relative risk is low hsCRP 1.0-3.0 mg/L, relative risk is average hsCRP > 3.0 mg/L, relative risk is high Reference: Alvarado TA, Neli GA, Kali RW, et al. Markers of Inflammation and Cardiovascular Disease. Application to Clinical and Public Health Practice. A Statement for Healthcare Professionals from the Centers for Disease Control and Prevention and the [place] [employer]. Circulation 2003;107:499-511. Performed By: #### 2 324-2, 3084-1, 2143-6, 02404-0 ####[facility] [id number] [place] [id number] [place] Comprehensive metabolic 2000 panelon 08-10-2024 Albumin [Mass/Vol] 4.0 g/dL Normal 3.9-4.9 [facility] Comment on above: Order Comment: Speci men Type: BLOOD SPECIMEN [facility] Address: [address] [place] [address] Performed By: #### 1 989-3 #### [facility]IA [id number] [address] [place] [address] [place] ALP [Catalytic activity/Vol] 95 U/L Normal 38-113 [facility] Comment on above: Order Comment: Speci men Type: BLOOD SPECIMEN [facility] Address: [address] [place] [address] Performed By: #### 1 989-3 #### [facility] CLIA [id number] [address] [place] [address] [place] ALT [Catalytic activity/Vol] 21 U/L Normal 10-54 [facility] Comment on above: Order Comment: Speci men Type: BLOOD SPECIMEN [facility] Address: [address] [place] [address] Performed By: #### 1 989-3 #### [facility]IA [id number] [address] [place] [address] [place] Anion gap [Moles/Vol] 12 mmol/L Normal 8-15 [facility] Comment on above: Order Comment: Speci men Type: BLOOD SPECIMEN [facility] Address: [address] [place] [address] Performed By: #### 1 989-3 #### [facility] CLIA [id number] [address] [place] [address] [place] AST [Catalytic activity/Vol] 24 U/L Normal 14-40 [facility] Comment on above: Order Comment: Speci men Type: BLOOD SPECIMEN [facility] Address: [address] [place] [address] Performed By: #### 1 989-3 #### [facility] CLIA [id number] [address] [place] [address] [place] Bilirubin [Mass/Vol] 0.5 mg/dL Normal 0.2-1.3 [facility] Comment on above: Order Comment: Speci men Type: BLOOD SPECIMEN [facility] Address: [address] [place] [place] [id number] Performed By: #### 1 989-3 #### [facility] CLIA [id number] [address] [place] [address] [place] Calcium [Mass/Vol] 9.5 mg/dL Normal 8.5-10.2 [facility] Comment on above: Order Comment: Speci men Type: BLOOD SPECIMEN [facility] Address: [address] [place] [address] Performed By: #### 1 989-3 #### [facility] CLIA [id number] [address] [place] [address] [place] Chloride [Moles/Vol] 101 mmol/L Normal 98-107 [facility] Comment on above: Order Comment: Speci men Type: BLOOD SPECIMEN [facility] Address: [address] [place] [address] Performed By: #### 1 989-3 #### [facility] CLIA [id number] [address] [place] [address] [place] CO2 [Moles/Vol] 24 mmol/L Normal 22-30 [facility] Comment on above: Order Comment: Speci men Type: BLOOD SPECIMEN [facility] Address: [address] [place], [place] [address] Performed By: #### 1 989-3 #### [facility] CLIA [id number] [address] [place], [place] [id number] [place] Creatinine [Mass/Vol] 0.76 mg/dL Normal 0.73-1.22 [facility] Comment on above: Order Comment: Speci men Type: BLOOD SPECIMEN [facility] Address: [address] [place], [place] [address] Performed By: #### 1 989-3 #### [facility] CLIA [id number] [address] [place], [place] [address] [place] Creatinine and Glomerular filtration rate.predicted panel (S/P/Bld) 114 mL/min/1.73m??? Normal >=60 [facility] Comment on above: Order Comment: Vicky talley Type: BLOOD SPECIMEN [facility] Address: [address] [place] [address] Result Comment: Nancy mated Glomerular Filtration Rate (eGFR) is calculated using the 2020 CKD-EPI creatinine equation. This equation utilizes serum creatinine, sex, and age as parameters. The creatinine assay has traceable calibration to isotope dilution-mass spectrometry. Refer to KDIGO guidelines for clinical interpretation. In patients with unstable renal function, e.g. those with acute kidney injury, the eGFR may not accurately reflect actual GFR. Performed By: #### 1 989-3 #### [facility] CLIA [id number] [address] [place] [address] [place] Glucose [Mass/Vol] 88 mg/dL Normal 74-99 [facility] Comment on above: Order Comment: Vicky talley Type: BLOOD SPECIMEN [facility] Address: [address] [place] [address] Result Comment: The [place] Diabetes Association (ADA) provides guidance for cutoff values for fasting glucose and random glucose. The ADA defines fasting as no caloric intake for at least 8 hours. Fasting plasma glucose results between 100 to 125 mg/dL indicate increased risk for diabetes (prediabetes). Fasting plasma glucose results greater than or equal to 126 mg/dL meet the criteria for diagnosis of diabetes. In the absence of unequivocal hyperglycemia, results should be confirmed by repeat testing. In a patient with classic symptoms of hyperglycemia or hyperglycemic crisis, random plasma glucose results greater than or equal to 200 mg/dL meet the criteria for diagnosis of diabetes. Reference: Standards of Medical Care in Diabetes 2016, [place] Diabetes Association. Diabetes Care. 2016.39(Suppl 1). Performed By: #### 1 989-3 #### [facility] CLIA [id number] [address] [place] [address] [place] Potassium [Moles/Vol] 4.3 mmol/L Normal 3.7-5.1 [facility] Comment on above: Order Comment: Speci men Type: BLOOD SPECIMEN [facility] Address: [address] [place] [address] Performed By: #### 1 989-3 #### [facility] CLIA [id number] [address] [place] [address] [place] Protein [Mass/Vol] 6.5 g/dL Normal 6.3-8.0 [facility] Comment on above: Order Comment: Speci men Type: BLOOD SPECIMEN [facility] Address: [address] [place] [address] Performed By: #### 1 989-3 #### [facility] CLIA [id number] [address] [place] [address] [place] Sodium [Moles/Vol] 137 mmol/L Normal 136-144 [facility] Comment on above: Order Comment: Speci men Type: BLOOD SPECIMEN [facility] Address: [address] [place] [address] Performed By: #### 1 989-3 #### [facility] CLIA [id number] [address] [place] [address] [place] Urea nitrogen [Mass/Vol] 11 mg/dL Normal 9-24 [facility] Comment on above: Order Comment: Speci men Type: BLOOD SPECIMEN [facility] Address: [address] [place] [address] Performed By: #### 1 989-3 #### [facility] CLIA [id number] [address] [place] [address] [place] Cortis SerPl-mCncon 12-20-20 24 Cortisol [Mass/Vol] 5.5 ug/dL Normal 4.8-19.5 [facility] Comment on above: Order Comment: Speci men Type: BLOOD SPECIMENOrdering Facility: [facility] Address: [address] [place] [address] Result Comment: Prov ided reference range is from 6-10 AM sample collection time. Cortisol Reference Range: 6-10 AM = 4.8-19.5 ug/dL, 4-8 PM = 2.5-11.9 ug/dL Performed By: #### 2 324-2, 3084-1, 2143-6, 88697-8 ####[facility] [id number] [place] [address] [place] Cyclic citrullinated peptide IgG Qnon 08-10-2024 CCP ANTIBODY IGG QUALITATIVE Negative Normal Negative [facility] Comment on above: Order Comment: Speci men Type: BLOOD SPECIMENOrdering Facility: [facility] Address: [address] [place] [address] Performed By: #### 3 1017-7, 26589-6 ####[facility] [id number] [place] [address] [place] DHEA-S Don 08-10-2024 DHEA-S [Mass/Vol] 50.5 ug/dL Low 88.9-427.0 [facility] Comment on above: Order Comment: Speci men Type: BLOOD SPECIMEN [facility] Address: [address] [place] [address] Result Comment: Refe rence ranges are age and gender specific. For additional information, reference range tables can be found in the laboratory test directory. The normal values are based on the following source: Dehydroepiandrosterone sulfate (DHEA S) [package insert V 17.0 Romanian]. [facility], [place], [place]: March 2013. Performed By: #### 1 989-3 #### [facility] CLIA [id number] [address] [place] [address] [place] ESR Westergren method (Bld) [Velocity]on 08-10-2024 ESR (Bld) [Velocity] 17 mm/h High [facility] Interpretation and review of laboratory results Abnormal [facility] ESR (Bld) [Velocity] 17 mm/h High 0-15 [facility] Comment on above: Order Comment: Speci men Type: BLOOD SPECIMENOrdering Facility: [facility] Address: [address] [place] [address] Performed By: #### 5 7021-8, 4537-7 ####[facility] [id number] [place] [address] [place] Ferritin SerPl-mCncon 2023 Ferritin [Mass/Vol] 44.6 ng/mL Normal 30.3-565.7 [facility] Comment on above: Order Comment: Speci men Type: BLOOD SPECIMEN [facility] Address: [address] [place] [address] Performed By: #### 1 989-3 #### [facility] CLIA [id number] [address] [place] [address] [place] GGT SerPl-cCncon 08-10-2024 Gamma glutamyl transferase [Catalytic activity/Vol] 41 U/L Normal 10-70 [facility] Comment on above: Order Comment: Speci men Type: BLOOD SPECIMENOrdering Facility: [facility] Address: [address] [place] [address] Performed By: #### 2 324-2, 3084-1, 2143-6, 60167-7 ####[facility] LABCLIA [id number] [place] [address] [place] HbA1c (Bld)on 08-10-2024 Average glucose Estimated from glycated hemoglobin (Bld) [Mass/Vol] 108 mg/dL Normal [facility] Comment on above: Order Comment: Speci men Type: BLOOD SPECIMENOrdering Facility: [facility] Address: [address] [place] [address] Result Comment: eAG: (Estimated average glucose) is a calculated value from HgbA1c and is claims service representative of the average blood glucose level in the last 2-3 month period. Performed By: #### 5 5454-3 ####[facility] LABCLIA [id number] [place] [address] [place] HbA1c (Bld) [Mass fraction] 5.4 % Normal 4.3-5.6 [facility] Comment on above: Order Comment: Speci men Type: BLOOD SPECIMENOrdering Facility: [facility] Address: [address] [place] [address] Result Comment: Amer [place] Diabetes Association guidelines indicate that patients with HgbA1c in the range 5.7-6.4% are at increased risk for development of diabetes, and intervention by lifestyle modification may be beneficial. HgbA1c greater or equal to 6.5% is considered diagnostic of diabetes. Performed By: #### 5 5454-3 ####[facility] [id number] [place] [address] [place] Hcys SerPl-sCncon 08-10-2024 Homocysteine [Moles/Vol] 6.7 umol/L Normal <15.1 [facility] Comment on above: Order Comment: Speci men Type: BLOOD SPECIMENOrdering Facility: [facility] Address: [address] [place] [address] Performed By: #### 1 3965-9 ####[facility]IA [id number] [place] [address] [place] Insulin SerPl-aCncon 024 Insulin Qn 27.8 u[IU]/mL High 3.0-25.0 [facility] Comment on above: Order Comment: Speci men Type: BLOOD SPECIMENOrdering Facility: [facility] Address: [address] [place] [address] Performed By: #### 2 0448-7 ####[facility]IA [id number] [place] [address] [place] Iron and Iron binding capaci ty panelon 08-10-2024 Iron [Mass/Vol] 93 ug/dL Normal 41-186 [facility] Comment on above: Order Comment: Speci men Type: BLOOD SPECIMEN [facility] Address: [address] [place], [place] [address] Performed By: #### 1 989-3 #### [facility] CLIA [id number] [address] [place] [address] [place] Iron binding capacity [Mass/Vol] 435 ug/dL High 232-386 [facility] Comment on above: Order Comment: Speci men Type: BLOOD SPECIMEN [facility] Address: [address] [place] [address] Performed By: #### 1 989-3 #### [facility] CLIA [id number] [address] [place] [address] [place] Iron/TIBC [Molar ratio] 21.4 % Normal 15.0-57.0 [facility] Comment on above: Order Comment: Speci men Type: BLOOD SPECIMEN [facility] Address: [address] [place] [address] Performed By: #### 1 989-3 #### [facility] CLIA [id number] [address] [place] [address] [place] LEPTINon 08-10-2024 LEPTIN 55.7 ng/mL High 0.5-12.5 [facility] Comment on above: Order Comment: Speci men Type: BLOOD SPECIMENOrdering Facility: [facility] Address: [address] [place] [address] Result Comment: INTE RPRETIVE INFORMATION: Leptin Quant by SVETLANA This test was developed and its performance characteristics determined by [facility]. It has not been cleared or approved by the US Food and Drug Administration. This test was performed in a CLIA certified laboratory and is intended for clinical purposes. Performed By: [facility] [address] [place] [address] Cost Engineer: Ramon Ovalle MD, PhD CLIA Number: [id number] Performed By: #### F BRIDGER, RHEUMA, LEPTIN ####[facility] PharmaceuticalsCHILDREN'S HOSPITAL OF COLUMBUSIA [id number] [place] [address] Lead (Bld) [Mass/Vol]on 07-23 Lead (BldV) [Mass/Vol] <1.0 Normal <3.5 [facility] Comment on above: Order Comment: Vicky talley Type: BLOOD SPECIMEN [facility] Address: [address] [place] [address] Result Comment: The Centers for Disease Control and Prevention (CDC) recommends a blood lead reference value of less than 3.5 ???g/dL (Update of the Blood Lead Reference Value - [facility], 2020). The CDC's updated Recommended Actions Based on Blood Lead Level can be accessed at www.cdc.gov. Consult [facility] Department of Health and/or applicable regulatory agencies for specific guidance on testing follow up and patient management. This test was developed, and its performance characteristics determined by the [facility] Department of Pathology and Laboratory Medicine. It has not been cleared or approved by the FDA. The [facility] Department of Pathology and Laboratory Medicine is regulated under CLIA as qualified to perform high-complexity testing. This test is used for clinical purposes. It should not be regarded as investigational or for research. Performed By: #### 1 989-3 #### [facility] CLIA [id number] [address] [place] [address] [place] MAGNESIUM RBCon 08-10-2024 Magnesium (RBC) [Moles/Vol] 5.1 mg/dL Normal 4.0-6.5 [facility] Comment on above: Order Comment: Vicky talley Type: BLOOD SPECIMENOrdering Facility: [facility] Address: [address] [place] [address] Result Comment: This test was developed, and its performance characteristics determined by the [facility] Department of Pathology and Laboratory Medicine. It has not been cleared or approved by the FDA. The [facility] Department of Pathology and Laboratory Medicine is regulated under CLIA as qualified to perform high-complexity testing. This test is used for clinical purposes. It should not be regarded as investigational or for research. Performed By: #### M AGRBC ####[facility] LABCLIA [id number] [facility] [place] [address] [place] MERCURY BLDon 08-10-2024 MERCURY <2.5 Normal <=10.0 [facility] Comment on above: Order Comment: Speci men Type: BLOOD SPECIMENOrdering Facility: [facility] Address: [address] [place] [address] Result Comment: INTE RPRETIVE INFORMATION: Mercury, Blood Elevated results may be due to skin or collection-related contamination, including the use of a noncertified metal-free collection/transport tube. If contamination concerns exist due to elevated levels of blood mercury, confirmation with a second specimen collected in a certified metal-free tube is recommended. Blood mercury levels predominantly reflect recent exposure and are most useful in the diagnosis of acute poisoning as blood mercury concentrations rise sharply and fall quickly over several days after ingestion. Blood concentrations in unexposed individuals rarely exceed 20 ug/L. The provided reference interval relates to inorganic mercury concentrations. Dietary and non-occupational exposure to organic mercury forms may contribute to an elevated total mercury result. Clinical presentation after toxic exposure to organic mercury may include dysarthria, ataxia and constricted vision noyola with mercury blood concentrations from 20 to 50 ug/L. This test was developed and its performance characteristics determined by [employer] [facility]. It has not been cleared or approved by the US Food and Drug Administration. This test was performed in a CLIA certified laboratory and is intended for clinical purposes. Performed By: [facility] [address] [place] [address] Cost Engineer: Ramon Ovalle MD, PhD [place] Number: [id number] Performed By: #### M ERC2 ####[facility] LABORATORIESNORT[facility]AST[facility] [id number] [place] [address] Methylmalonate [facility] 08-10-2024 Methylmalonate [Moles/Vol] 0.09 umol/L Normal <=0.40 [facility] Comment on above: Order Comment: Speci men Type: BLOOD SPECIMEN [facility] Address: [address] [place] [address] Result Comment: This test was developed, and its performance characteristics determined by the [facility] Department of Pathology and Laboratory Medicine. It has not been cleared or approved by the FDA. The [facility] Department of Pathology and Laboratory Medicine is regulated under CLIA as qualified to perform high-complexity testing. This test is used for clinical purposes. It should not be regarded as investigational or for research. Performed By: #### 1 989-3 #### [facility] CLIA [id number] [address] [place] [address] [place] Nuclear Ab IA Ql (S)on 08-10 PAM SCR QUAL Negative Normal Negative [facility] Comment on above: Order Comment: Speci men Type: BLOOD SPECIMENOrdering Facility: [facility] Address: [address] [place] [address] Result Comment: The qualitative antinuclear antibody screen test performed using the following antigens: dsDNA, Chromatin, Ribosomal P, SS-A 60, SS-A 52, SS-B, Sm, SmRNP, NEURODIAGNOSTIC TECHNOLOGIST A, NEURODIAGNOSTIC TECHNOLOGIST 68, Scl-70, Vonda-1, and Centromere B. Methodology: Multiplex flow immunoassay. Performed By: #### 4 7383-5 ####[facility] LABCLIA [id number] [place] [address] [place] OMEGACHECKon 08-10-2024 ARACHIDONIC ACID 12.4 % by wt Normal 8.6-15.6 [facility] Comment on above: Order Comment: Speci men Type: BLOOD SPECIMENOrdering Facility: [facility] Address: [address] [place] [address] Performed By: #### O MEGAC ####[facility] [id number] [place] [address] ARACHIDONIC ACID/EPA RATIO 19.6 Normal 3.7-40.7 [facility] Comment on above: Order Comment: Speci men Type: BLOOD SPECIMENOrdering Facility: [facility] Address: [address] [place] [address] Result Comment: Rece ived Date: Performed By: #### O MEGAC ####[facility] [id number] [place] [address] DHA 2.2 % by wt Normal 1.4-5.1 [facility] Comment on above: Order Comment: Speci men Type: BLOOD SPECIMENOrdering Facility: [facility] Address: [address] [place] [address] Performed By: #### O MEGAC ####[facility] [id number] [address], [place] [address] DPA 0.9 % by wt Normal 0.8-1.8 [facility] Comment on above: Order Comment: Speci men Type: BLOOD SPECIMENOrdering Facility: [facility] Address: [address] [place] [address] Performed By: #### O MEGAC ####[facility] [id number] [address] [address] EPA 0.6 % by wt Normal 0.2-2.3 [facility] Comment on above: Order Comment: Speci men Type: BLOOD SPECIMENOrdering Facility: [facility] Address: [address] [place] [address] Performed By: #### O MEGAC ####[facility] [id number] [address] [place] [address] LINOLEIC ACID 23.5 % by wt Normal 18.6-29.5 [facility] Comment on above: Order Comment: Speci men Type: BLOOD SPECIMENOrdering Facility: [facility] Address: [address] [place] [address] Performed By: #### O MEGAC ####[facility] [id number] [address] [place] [address] OMEGA-3 TOTAL 3.8 % by wt Normal [facility] Comment on above: Order Comment: Speci men Type: BLOOD SPECIMENOrdering Facility: [facility] Address: [address] [place] [address] Performed By: #### O MEGAC ####[facility] [id number] [address] [place] [address] OMEGA-6 TOTAL 40.0 % by wt Normal [facility] Comment on above: Order Comment: Speci men Type: BLOOD SPECIMENOrdering Facility: [facility] Address: [address] [place] [address] Result Comment: [facility] measures a number of omega-6 fatty acids with AA and LA being the two most abundant forms reported. Performed By: #### O MEGAC ####[facility] [id number] [address] [address] OMEGA-6/OMEGA-3 RATIO 10.6 Normal 3.7-14.4 [facility] Comment on above: Order Comment: Speci men Type: BLOOD SPECIMENOrdering Facility: [facility] Address: [address] [place] [id number] Performed By: #### O MEGAC ####[facility] [id number] [address] [address] OMEGACHECK 3.8 % by wt Low >5.4 [facility] Comment on above: Order Comment: Speci men Type: BLOOD SPECIMENOrdering Facility: [facility] Address: [address] [place] [address] Result Comment: Incr easing blood levels of long-chain n-3 fatty acids are associated with a lower risk of sudden cardiac (1). Based on the top (75th percentile) and bottom (25th percentile) quartiles of the [facility] reference population, the following relative risk categories were established for OmegaCheck: A cut-off of >=5.5% by wt defines a population at optimal relative risk, 3.8-5.4% by wt defines a population at moderate relative risk, and <=3.7% by wt defines a population at high relative risk of sudden cardiac . The totality of the scientific evidence demonstrates that when consumption of fish oils is limited to 3 g/day or less of EPA and DHA, there is no significant risk for increased bleeding time beyond the normal range. A daily dosage of 1 gram of EPA and DHA lowers the circulating triglycerides by about 7-10% within 2 to 3 weeks. (Reference: 1-Jerod et al. NEJ. 2002; 346: 1892-2729).This test was developed and its analytical performance characteristics have been determined by [facility]. It has not been cleared or approved by the U.S. Food and Drug Administration. This assay has been validated pursuant to the CLIA regulations and is used for clinical purposes. Performed By: #### O MEGA ####[facility] [id number] [place] [address] RHEUMATOID FACTOR MGAon 12- RHEUMATOID FACTOR, IGA <5 Normal <=6 [facility] Comment on above: Order Comment: Vicky talley Type: BLOOD SPECIMENOrdering Facility: [facility] Address: [address] [place] [address] Result Comment: INTE RPRETIVE INFORMATION: Rheumatoid Factor, IgA by GASTON The presence of all three rheumatoid factor (RF) isotypes at abnormal levels has high specificity for a diagnosis of rheumatoid arthritis (RA). However, the presence of RF isotypes in any combination may be found in a variety of conditions, including Sjogren syndrome and hepatitis infections. Performed by [facility], [address] [place], [place] [id number] www[employer], Sourav Esquivel MD, Lab. Director CLIA Number: [id number] Performed By: #### F BRIDGER, RHEUMA, LEPTIN ####[facility] AmeriprimeCLIA [id number] [place] [address] RHEUMATOID FACTOR, IGG <5 Normal <=6 [facility] Comment on above: Order Comment: Vicky talley Type: BLOOD SPECIMENOrdering Facility: [facility] Address: [address] [place] [address] Result Comment: INTE RPRETIVE INFORMATION: Rheumatoid Factor, IgG by GASTON The presence of all three rheumatoid factor (RF) isotypes at abnormal levels has high specificity for a diagnosis of rheumatoid arthritis (RA). However, the presence of RF isotypes in any combination may be found in a variety of conditions, including Sjogren syndrome and hepatitis infections. Performed by [employer] [address] [place] [id number] [employer], Sourav Esquivel MD, Lab. Director CLIA Number: [id number] Performed By: #### F BRIDGER, RHEUMA, LEPTIN ####[facility] LABORATORIESCLIA [id number] [place] [address] RHEUMATOID FACTOR, IGM <5 Normal <=6 [facility] Comment on above: Order Comment: Speci men Type: BLOOD SPECIMENOrdering Facility: [facility] Address: [address] [place] [address] Result Comment: INTE RPRETIVE INFORMATION: Rheumatoid Factor, IgM by GASTON The presence of all three rheumatoid factor (RF) isotypes at abnormal levels has high specificity for a diagnosis of rheumatoid arthritis (RA). However, the presence of RF isotypes in any combination may be found in a variety of conditions, including Sjogren syndrome and hepatitis infections. Performed by [facility], [address] [place] [id number] www[employer], Sourav Esquivel MD, Lab. Director CLIA Number: [id number] Performed By: #### F BRIDGER, RHEUMA, LEPTIN ####[facility] LABORATORIESCLIA [id number] [place] [address] T3Free SerPl-mCncon 08-10-20 24 Free T3 [Mass/Vol] 3.0 pg/mL Normal 2.3-4.1 [facility] Comment on above: Order Comment: Speci men Type: BLOOD SPECIMEN [facility] Address: [address] [place] [address] Performed By: #### 1 989-3 #### [facility] CLIA [id number] [address] [place] [address] [place] T4 Free SerPl-mCncon 024 Free T4 [Mass/Vol] 1.1 ng/dL Normal 0.9-1.7 [facility] Comment on above: Order Comment: Speci men Type: BLOOD SPECIMENOrdering Facility: [facility] Address: [address] [place] [address] Performed By: #### 3 034-6, 2276-4, 3024-7, 3016-3 ####[facility] LABCLIA [id number] [place] [address] [place] TSH SerPl-aCncon 08-10-2024 TSH Qn 1.790 m[IU]/L Normal 0.270-4.200 [facility] Comment on above: Order Comment: Speci men Type: BLOOD SPECIMENOrdering Facility: [facility] Address: [address] [place] [address] Performed By: #### 3 034-6, 2276-4, 3024-7, 3016-3 ####[facility] LABCLIA [id number] [place] [address] [place] Transferrin SerPl-mCncon Transferrin [Mass/Vol] 337 mg/dL Normal 200-360 [facility] Comment on above: Order Comment: Speci men Type: BLOOD SPECIMEN [facility] Address: [address] [place] [address] Performed By: #### 1 989-3 #### [facility] CLIA [id number] [address] [place] [address] [place] Urate SerPl-mCncon Urate [Mass/Vol] 4.9 mg/dL Normal 4.0-8.1 [facility] Comment on above: Order Comment: Speci men Type: BLOOD SPECIMENOrdering Facility: [facility] Address: [address] [place] [address] Performed By: #### 2 324-2, 3084-1, 2143-6, 63802-0 ####[facility] LABCLIA [id number] [place] [address] [place] VITAMIN B1 (THIAMINE), WHOLE BLOODon 08-10-2024 Thiamine (Bld) [Moles/Vol] 235.8 nmol/L High 84.3-213.3 [facility] Comment on above: Order Comment: Speci men Type: BLOOD SPECIMENOrdering Facility: [facility] Address: [address] [place] [address] Result Comment: This assay measures the concentration of thiamine diphosphate (TDP), the primary active form of vitamin B1. Approximately 90 percent of vitamin B1 present in whole blood is TDP. Thiamine and thiamine monophosphate, which comprise the remaining 10 percent, are not measured. This test was developed, and its performance characteristics determined by the [facility] Department of Pathology and Laboratory Medicine. It has not been cleared or approved by the FDA. The [facility] Department of Pathology and Laboratory Medicine is regulated under CLIA as qualified to perform high-complexity testing. This test is used for clinical purposes. It should not be regarded as investigational or for research. Performed By: #### B 1WB ####[facility] LABCLIA [id number] [facility] [id number] [place] [address] [place] VITAMIN B2/RIBOFLAVon 2023 VITAMIN B2 7 nmol/L Normal 5-50 [facility] Comment on above: Order Comment: Speci gerri Type: BLOOD SPECIMEN [facility] Address: [address] [place] [address] Result Comment: INTE RPRETIVE INFORMATION: Vitamin B2, Plasma This test was developed and its performance characteristics determined by [facility]. It has not been cleared or approved by the US Food and Drug Administration. This test was performed in a CLIA certified laboratory and is intended for clinical purposes. Performed By: [facility] [address] [place] [address] Cost Engineer: Ramon Ovalle MD, PhD IA Number: [id number] Performed By: #### V ITB2 #### [facility]ITAL[facility] [id number] [address] [place] [address] VITAMIN B6/PYRIDOXINon 08-10 VITAMIN B6 18.2 nmol/L Low 20.0-125.0 [facility] Comment on above: Order Comment: Speci men Type: BLOOD SPECIMENOrdering Facility: [facility] Address: [address] [place] [address] Result Comment: INTE RPRETIVE INFORMATION: Vitamin B6 (Pyridoxal 5-Phosphate) Pyridoxal 5'-phosphate measured in a specimen collected following an 8-hour or overnight fast accurately indicates vitamin B6 nutritional status. Non-fasting specimen concentration reflects recent vitamin intake. This test was developed and its performance characteristics determined by [facility]. It has not been cleared or approved by the US Food and Drug Administration. This test was performed in a CLIA certified laboratory and is intended for clinical purposes. Performed By: [facility] [address] [place] [address] Cost Engineer: Ramon Ovalle MD, PhD CLIA Number: [id number] Performed By: #### V ITB6 ####[facility] [id number] [place] [address] Vit A SerPl-mCncon 4 Retinol [Mass/Vol] 0.50 mg/L Normal 0.30-1.20 [facility] Comment on above: Order Comment: Speci men Type: BLOOD SPECIMENOrdering Facility: [facility] Address: [address] [place] [address] Result Comment: Test performed at [facility] [employer] in [place], [place]. This test was developed and its performance characteristics determined by [facility]. It has not been cleared or approved by the US Food and Drug Administration. This test was performed in a CLIA certified laboratory and is intended for clinical purposes. Performed By: #### 1 823-4, 2923-1 ####[facility] LABCLIA [id number] [place] [address] [place] Zinc SerPl-mCncon 08-10-2024 Zinc [Mass/Vol] 64 ug/dL Normal 60-120 [facility] Comment on above: Order Comment: Speci men Type: BLOOD SPECIMENOrdering Facility: [facility] Address: [address] [place] [address] Result Comment: This test was developed, and its performance characteristics determined by the [facility] Department of Pathology and Laboratory Medicine. It has not been cleared or approved by the FDA. The [facility] Department of Pathology and Laboratory Medicine is regulated under CLIA as qualified to perform high-complexity testing. This test is used for clinical purposes. It should not be regarded as investigational or for research. Performed By: #### C REMEDIOS, 5763-8 ####[facility] LABCLIA [id number] [place] [address] [place] cCP IgG SerPl-aCncon 08-10- 024 Cyclic citrullinated peptide IgG Qn <15 Normal <20 [facility] Comment on above: Order Comment: Speci men Type: BLOOD SPECIMENOrdering Facility: [facility] Address: [address] [place] [address] Performed By: #### 3 1017-7, 94280-2 ####[facility] LABCLIA [id number] [place] [address] [place] tTG IgA Qn (S)on 08-10-2024 TRANSGLUTAMINASE IGA ABS INTERPRETATION Negative Normal Negative [facility] Comment on above: Order Comment: Speci men Type: BLOOD SPECIMENOrdering Facility: [facility] Address: [address] [place] [address] Result Comment: The following results were obtained with [employer] R h-tTG IgA GASTON.???R h-tTG IgA values obtained with different manufacturers' assay methods may not be used interchangeably. The magnitude of the reported IgA levels cannot be correlated to an endpoint???concentration. This is used as an aid in diagnosis of celiac disease. Clinical correlation is required. Performed By: #### 3 1017-7, 21187-8 ####[facility] [id number] [place] [address] [place] tTG IgA Ser-aCncon 4 tTG IgA Qn (S) <2 Normal <4 [facility] Comment on above: Order Comment: Speci men Type: BLOOD SPECIMENOrdering Facility: [facility] Address: [address] [place] [address] Performed By: #### 3 1017-7, 54935-2 ####[facility] [id number] [place] [address] [place] tTG IgG Qn (S)on 08-10-2024 TRANSGLUTAMINASE IGG ABS INTERPRETATION Negative Normal Negative [facility] Comment on above: Order Comment: Speci men Type: BLOOD SPECIMENOrdering Facility: [facility] Address: [address] [place] [address] Result Comment: The following results were obtained with [employer] QUANTA Lite R h-tTG IgG GASTON.???R h-tTG IgG values obtained with different manufacturers' assay methods may not be used interchangeably. The magnitude of the reported IgG levels cannot be correlated to an endpoint???concentration. This test is used as an aid in diagnosis of celiac disease in IgA-deficient individuals only. Clinical correlation is required. Performed By: #### 3 2998-7 ####[facility] [id number] [place] [address] [place] tTG IgG Ser-aCncon 4 tTG IgG Qn (S) 2 U/mL Normal <6 [facility] Comment on above: Order Comment: Speci men Type: BLOOD SPECIMENOrdering Facility: [facility] Address: [address] [place] [address] Performed By: #### 3 2998-7 ####[facility] [id number] [address] [place] CNOVon 05-02-2024 CNOV Office Visit (OBGYWM ) ----- MARYSE LOGAN ([id number]) 1980 F Date Time Provider Department 05/02/24 11:40 AM KEYUR SANDERS OBGYWM During your visit today, we recorded the following information about you: Blood pressure Weight 124/70 112.9 kg Keyur Sanders MD 05/02/2024 12:36 PM Signed Maryse Logan is a 43 year old female who presents for evaluation of pelvic discomfort and discharge post hysteroscopy, uterine DANDC and endometrial ablation on April 05, 2024, Pt seen seen 4 days ago in [facility] for evaluation of Left flank pain. Transvaginal ultrasound reveals < 3 cm ovarian follicles left ovary.. HPI: hx of heavy menses OB History T0 L0 SAB0 IAB0 Ectopic0 Multiple0 Live Births0 [employer] History LMP: 02/04/2024, Perimenopausal Age at Menarche: Age at First : Age at Menopause: [employer] History Comments: Sexual Activity: Yes; No partner data on record Contraception: No contraception data on record PAST MEDICAL HISTORY No date: Attention deficit disorder without mention of hyperactivity No date: Obesity, unspecified No date: Other and unspecified ovarian cyst No date: Unspecified asthma(493.90) PAST SURGICAL HISTORY 01/2024: COLONOSCOPY SCREENING Comment: every 10 year 01/2024: EGD W/O BRSH SPEC VARICIES INJ No date: EXTRACTION ERUPTED TOOTH/EXR 02/2024: FIBROSCAN Comment: liver 04/05/2024: HYSTEROSCOPY REMOVAL LEIOMYOMATA Comment: and Breana endometrial ablation No date: IUD REMOVAL/INSERTION PROCEDURE (W NOTE) Comment: removed 2021 approx No date: MYRINGOTOMY ASPIRAND/EUSTACHIAN TUBE NFLTJ ANES Comment: Myringotomy/tubes FAMILY HISTORY Problem Relation Age of Onset Diabetes Mother type 2 Alcohol/Drug Sister Social History Tobacco Use Smoking status: Never Smokeless tobacco: Never Vaping Use Vaping status: Never Used Substance Use Topics Alcohol use: No Drug use: No Current Outpatient Medications Medication Sig metFORMIN (GLUCOPHAGE) 500 mg tablet Take 500 mg by mouth. fluticasone-salmeterol (ADVAIR DISKUS) 100-50 mcg/dose inhaler 1 Puff. LORazepam (ATIVAN) 0.5 mg 1 tablet Orally Twice a day prn F41.1 MAGNESIUM ORAL Take by mouth. cholecalciferol, vitamin D3, (VITAMIN D3 ORAL) Take by mouth. TURMERIC ORAL Take by mouth. MULTIVITAMIN ORAL Take by mouth. clobetasol (TEMOVATE) 0.05 % ointment Apply to affected area. fexofenadine HCl (TITA ORAL) Take by mouth. citalopram (CELEXA) 20 mg tablet albuterol HFA (PROVENTIL HFA, VENTOLIN HFA) 90 mcg/actuation inhaler Inhale 2 Puffs as instructed every 4 hours as needed. fluticasone (FLOVENT HFA) 110 mcg/actuation inhaler Inhale 2 Puffs as instructed twice daily. albuterol HFA (PROAIR HFA) 90 mcg/actuation inhaler Inhale 2 Puffs as instructed every 4 hours as needed. montelukast (SINGULAIR) 10 mg tablet Take 1 tablet by mouth daily at bedtime. No current facility-administered medications for this visit. Allergies As of Date: 05/02/2024 Allergen Noted Reaction SELDANE 12/19/2016 Rash SUPRAX [CEFIXIME] 12/19/2016 Rash Fully Assessed 05/02/2024 REVIEW OF SYSTEMS Abdomen: No bloating, early satiety, indigestion, or increased flatulence. No abdominal pain, nausea, vomiting, diarrhea, or constipation. Bladder: No dysuria, gross hematuria, urinary frequency, urinary urgency, or incontinence. Breast: No breast lumps, nipple d/c, overlying skin changes, redness or skin retraction. Expanded ROS: N/A Allergies and current medication updated:Yes EXAM: BP 124/70 Wt 249 lb (112.9kg) LMP 02/04/2024 GENERAL: pleasant, female in no apparent distress BDOMEN: soft, non-tender, and no masses ASSESSMENT AND PLAN: Unremarkable post op pain RTO prn Keyur Sanders MD Allergies As of Date: 05/02/2024 Noted Allergy Reaction SELDANE 12/19/2016 2 - Rash SUPRAX (CEFIXIME) 12/19/2016 2 - Rash Date Reviewed: 05/02/2024 Reviewed by: Ying Malave MA - Fully Assessed Reason for Visit: Follow Up [171] Primary Visit Diagnosis:Ovarian cyst, left [N83.202] Prescriptions as of 05/02/2024 - metFORMIN (GLUCOPHAGE) 500 mg tablet Take 500 mg by mouth. - fluticasone-salmeterol (ADVAIR DISKUS) 100-50 mcg/dose inhaler 1 Puff. - LORazepam (ATIVAN) 0.5 mg 1 tablet Orally Twice a day prn F41.1 - MAGNESIUM ORAL Take by mouth. - cholecalciferol, vitamin D3, (VITAMIN D3 ORAL) Take by mouth. - TURMERIC ORAL Take by mouth. - MULTIVITAMIN ORAL Take by mouth. - clobetasol (TEMOVATE) 0.05 % ointment Apply to affected area. - fexofenadine HCl (TITA ORAL) Take by mouth. - citalopram (CELEXA) 20 mg tablet - montelukast (SINGULAIR) 10 mg tablet Take 1 tablet by mouth daily at bedtime. - albuterol HFA (PROVENTIL HFA, VENTOLIN HFA) 90 mcg/actuation inhaler Inhale 2 Puffs as instructed every 4 hours as needed. - fluticasone (FLOVENT HFA) 110 (more content not included)... Normal [facility] 04-28-2024 [facility] HNO ID: [id number] Author: TARYN HORNE CT Service: Radiology Author Type: Technologist Type: Allied Health Filed: 04/28/2024 11:56 Note Text: Radiology Service Progress Note PATIENT NAME: Maryse Logan DATE OF SERVICE: April 28, 2024 TIME: 11:56 AM PATIENT IDENTITY VERIFICATION COMPLETED USING TWO (2) IDENTIFIERS: Name and Date of confirmed by patient verbally and Name and Date of confirmed by identification band. FALL SCREENING: Has the patient had 2 falls in the last year or 1 fall with injury or currently using an Ambulatory Assistive Device (Walker, Cane, Wheelchair, Crutches, etc.)? Emergency Room Patient: Screened in ED PATIENT GENDER DATA: Female. status: : No status: NO. PATIENT RELEVANT IMPLANT DATA REVIEWED: Not Applicable PATIENT PRESENTS WITH AN IMPLANTABLE OR ATTACHED APPRAISER BOATS AND MARINE: No RADIOLOGY DEPARTMENT: CT; Exam(s) Completed: Abdomen/Pelvis PERIPHERAL IV DATA: Not applicable SIGNED BY: CLYDE Dos Santos April 28, 2024 11:56 AM [facility] HNO ID: [id number] Author: GENET PARKER RDMS Service: ? Author Type: Patient Safety Sitter Type: [facility] Filed: 04/28/2024 11:17 Note Text: Radiology Service Progress Note PATIENT NAME: Maryse Logan DATE OF SERVICE: April 28, 2024 TIME: 11:17 AM PATIENT IDENTITY VERIFICATION COMPLETED USING TWO (2) IDENTIFIERS: Name and Date of confirmed by patient verbally. FALL SCREENING: Has the patient had 2 falls in the last year or 1 fall with injury or currently using an Ambulatory Assistive Device (Walker, Cane, Wheelchair, Crutches, etc.)? Emergency Room Patient: Screened in ED PATIENT GENDER DATA: Female. status: : No status: NO. PATIENT RELEVANT IMPLANT DATA REVIEWED: Not Applicable PATIENT PRESENTS WITH AN IMPLANTABLE OR ATTACHED APPRAISER BOATS AND MARINE: na RADIOLOGY DEPARTMENT: Ultrasound PERIPHERAL IV DATA: Not applicable SIGNED BY: Genet Parker RDMS April 28, 2024 11:17 AM Normal [facility] CBC W Auto Differential pane l (Bld)on 04-28-2024 Basophils (Bld) [#/Vol] 10*3/uL Normal <0.11 [facility] Comment on above: Order Comment: Speci men Type: BLOOD SPECIMEN [facility] Address: [address] [place] [address] Performed By: #### 5 7021-8 #### [facility] CLIA [id number] [address] [place] Basophils/100 WBC (Bld) 0.2 % Normal [facility] Comment on above: Order Comment: Speci men Type: BLOOD SPECIMEN [facility] Address: [address] [place] [address] Performed By: #### 5 7021-8 #### [facility] CLIA [id number] [address] [place] Differential cell count method Nom (Bld) Auto [facility] Comment on above: Order Comment: Speci men Type: BLOOD SPECIMEN [facility] Address: [address] [place] [address] Performed By: #### 5 7021-8 #### [facility] CLIA [id number] [address] [place] [address] [place] Eosinophils (Bld) [#/Vol] 0.15 10*3/uL Normal <0.46 [facility] Comment on above: Order Comment: Speci men Type: BLOOD SPECIMEN [facility] Address: [address] [place] [address] Performed By: #### 5 7021-8 #### [facility] CLIA [id number] [address] [place] Eosinophils/100 WBC (Bld) 1.4 % Normal [facility] Comment on above: Order Comment: Speci men Type: BLOOD SPECIMEN [facility] Address: [address] [place] [address] Performed By: #### 5 7021-8 #### [facility] CLIA [id number] [address] [place] [address] [place] Erythrocyte distribution width (RBC) [Ratio] 13.5 % Normal 11.5-15.0 [facility] Comment on above: Order Comment: Speci men Type: BLOOD SPECIMEN [facility] Address: [address] [place] [address] Performed By: #### 5 7021-8 #### [facility] CLIA [id number] [address] [place] [address] [place] Hematocrit (Bld) [Volume fraction] 39.6 % Normal 36.0-46.0 [facility] Comment on above: Order Comment: Speci men Type: BLOOD SPECIMEN [facility] Address: [address] [place] [address] Performed By: #### 5 7021-8 #### [facility] CLIA [id number] [address] [place] [address] [place] Hemoglobin (Bld) [Mass/Vol] 12.8 g/dL Normal 11.5-15.5 [facility] Comment on above: Order Comment: Speci men Type: BLOOD SPECIMEN [facility] Address: [address] [place] [address] Performed By: #### 5 7021-8 #### [facility] CLIA [id number] [address] [place] [address] [place] Immature granulocytes (Bld) [#/Vol] 0.04 10*3/uL Normal <0.10 [facility] Comment on above: Order Comment: Speci men Type: BLOOD SPECIMEN [facility] Address: [address] [place] [address] Performed By: #### 5 7021-8 #### [facility] CLIA [id number] [address] [place] [address] [place] Immature granulocytes/100 WBC (Bld) 0.4 % Normal [facility] Comment on above: Order Comment: Speci men Type: BLOOD SPECIMEN [facility] Address: [address] [place] [address] Performed By: #### 5 7021-8 #### [facility] CLIA [id number] [address] [place] Lymphocytes (Bld) [#/Vol] 1.95 10*3/uL Normal 1.00-4.00 [facility] Comment on above: Order Comment: Speci men Type: BLOOD SPECIMEN [facility] Address: [address] [place] [address] Performed By: #### 5 7021-8 #### [facility] CLIA [id number] [address] Lymphocytes/100 WBC (Bld) 18.5 % Normal [facility] Comment on above: Order Comment: Speci men Type: BLOOD SPECIMEN [facility] Address: [address] [place] [address] Performed By: #### 5 7021-8 #### [facility] CLIA [id number] [address] MCH (RBC) [Entitic mass] 26.3 pg Normal 26.0-34.0 [facility] Comment on above: Order Comment: Speci men Type: BLOOD SPECIMEN [facility] Address: [address] [place] [address] Performed By: #### 5 7021-8 #### [facility] CLIA [id number] [address] [place] MCHC (RBC) [Mass/Vol] 32.3 g/dL Normal 30.5-36.0 [facility] Comment on above: Order Comment: Speci men Type: BLOOD SPECIMEN [facility] Address: [address] [place] [address] Performed By: #### 5 7021-8 #### [facility] CLIA [id number] [address] MCV (RBC) [Entitic vol] 81.3 fL Normal 80.0-100.0 [facility] Comment on above: Order Comment: Speci men Type: BLOOD SPECIMEN [facility] Address: [address] [place] [address] Performed By: #### 5 7021-8 #### [facility] CLIA [id number] [address] [place] [address] [place] Monocytes (Bld) [#/Vol] 0.61 10*3/uL Normal <0.87 [facility] Comment on above: Order Comment: Speci men Type: BLOOD SPECIMEN [facility] Address: [address] [place] [address] Performed By: #### 5 7021-8 #### [facility] CLIA [id number] [address] [place] Monocytes/100 WBC (Bld) 5.8 % Normal [facility] Comment on above: Order Comment: Speci men Type: BLOOD SPECIMEN [facility] Address: [address] [place] [address] Performed By: #### 5 7021-8 #### [facility] CLIA [id number] [address] [place] [address] [place] Neutrophils (Bld) [#/Vol] 7.77 10*3/uL High 1.45-7.50 [facility] Comment on above: Order Comment: Speci men Type: BLOOD SPECIMEN [facility] Address: [address] [place] [address] Performed By: #### 5 7021-8 #### [facility] CLIA [id number] [address] [place] [address] [place] Neutrophils/100 WBC (Bld) 73.7 % Normal [facility] Comment on above: Order Comment: Speci men Type: BLOOD SPECIMEN [facility] Address: [address] [place] [address] Performed By: #### 5 7021-8 #### [facility] CLIA [id number] [address] [place] [address] [place] Nucleated RBC (Bld) [#/Vol] 10*3/uL Normal <0.01 [facility] Comment on above: Order Comment: Speci men Type: BLOOD SPECIMEN [facility] Address: [address] [place] [address] Performed By: #### 5 7021-8 #### [facility] CLIA [id number] [address] [place] [address] [place] Nucleated RBC/100 WBC (Bld) [Ratio] 0.0 /100 WBC Normal [facility] Comment on above: Order Comment: Speci men Type: BLOOD SPECIMEN [facility] Address: [address] [place] [address] Performed By: #### 5 7021-8 #### [facility] CLIA [id number] [address] [place] [address] [place] Platelet mean volume (Bld) [Entitic vol] 9.4 fL Normal 9.0-12.7 [facility] Comment on above: Order Comment: Speci men Type: BLOOD SPECIMEN [facility] Address: [address] [place] [address] Performed By: #### 5 7021-8 #### [facility] CLIA [id number] [address] [place] [address] [place] Platelets (Bld) [#/Vol] 392 10*3/uL Normal 150-400 [facility] Comment on above: Order Comment: Speci men Type: BLOOD SPECIMEN [facility] Address: [address] [place] [address] Performed By: #### 5 7021-8 #### [facility] CLIA [id number] [address] [place] [address] [place] RBC (Bld) [#/Vol] 4.87 10*6/uL Normal 3.90-5.20 [facility] Comment on above: Order Comment: Speci men Type: BLOOD SPECIMEN [facility] Address: [address] [place] [address] Performed By: #### 5 7021-8 #### [facility] CLIA [id number] [address] [place] WBC (Bld) [#/Vol] 10.54 10*3/uL Normal 3.70-11.00 [facility] Comment on above: Order Comment: Speci men Type: BLOOD SPECIMEN [facility] Address: [address], [place] [address] Performed By: #### 5 7021-8 #### [facility] CLIA [id number] [address] [place] [address] [place] CNOVon 04-28-2024 CNOV Office Visit (UCWSTR ) ----- MARYSE LOGAN ([id number]) 1980 F Date Time Provider Department 04/28/24 8:45 AM SHAVON TRAN WSTR During your visit today, we recorded the following information about you: Shavon Tran APRN.CNP 04/28/2024 8:51 AM Signed Pt had an ablation 3 weeks and she has had pain since. Yesterday the pain increased and is still severe today. Pt referred to the ED for further evaluation. Shavon Tran APRN.CNP Allergies As of Date: 04/28/2024 Noted Allergy Reaction SELDANE 12/19/2016 2 - Rash SUPRAX (CEFIXIME) 12/19/2016 2 - Rash Date Reviewed: 03/20/2024 Reviewed by: Michelle Rutherford MA - Fully Assessed Reason for Visit: Abdominal Pain [1] Primary Visit Diagnosis:Pelvic pain [R10.2] Prescriptions as of 04/28/2024 - fluticasone-salmeterol (ADVAIR DISKUS) 100-50 mcg/dose inhaler 1 Puff. - LORazepam (ATIVAN) 0.5 mg 1 tablet Orally Twice a day prn F41.1 - MAGNESIUM ORAL Take by mouth. - cholecalciferol, vitamin D3, (VITAMIN D3 ORAL) Take by mouth. - TURMERIC ORAL Take by mouth. - MULTIVITAMIN ORAL Take by mouth. - clobetasol (TEMOVATE) 0.05 % ointment Apply to affected area. - fexofenadine HCl (TITA ORAL) Take by mouth. - citalopram (CELEXA) 20 mg tablet - montelukast (SINGULAIR) 10 mg tablet Take 1 tablet by mouth daily at bedtime. - albuterol HFA (PROVENTIL HFA, VENTOLIN HFA) 90 mcg/actuation inhaler Inhale 2 Puffs as instructed every 4 hours as needed. - fluticasone (FLOVENT HFA) 110 mcg/actuation inhaler Inhale 2 Puffs as instructed twice daily. - albuterol HFA (PROAIR HFA) 90 mcg/actuation inhaler Inhale 2 Puffs as instructed every 4 hours as needed. Problem List As Of Date 04/28/2024 Noted Resolved ASTHMA UNSPECIFIED [J45.909] 09/04/2004 Attention deficit disorder without mention of h* 05/29/2022 OBESITY NOS [E66.9] Encounter Status:Closed by SHAVON TRAN on 04/28/24 [facility] CT FLANK WO IVCONon 04-28-20 CT FLANK WO IVCON * * *Final Report* * * DATE OF EXAM: Apr 28 2024 11:58AM [facility] 0529 - CT FLANK WO IVCON / PROCEDURE REASON: Flank pain, kidney stone suspected * * * * Physician Interpretation * * * * EXAMINATION: CT ABDOMEN AND PELVIS WITHOUT IV CONTRAST (Renal stone protocol) CLINICAL HISTORY: Unspecified back pain. TECHNIQUE: Non-contrast imaging of the abdomen and pelvis was performed through the urinary tract. Study performed without intravenous or oral contrast to evaluate for urinary tract calculus. MQ: CTAbdPelvF_1 Contrast: IV contrast: None Oral contrast: None CT Radiation dose: Integrated dose-length product (DLP) for this visit = 1324 mGy*cm. CT Dose Reduction Employed: Automated exposure control(AEC) and iterative recon COMPARISON: None. RESULT: Limitations: Unenhanced imaging is limited for the evaluation of some renal and other intra-abdominal and pelvic pathology. Urinary Tract: Right kidney and ureter: No calculus. No hydronephrosis. No finding to suggest cyst or mass in the unenhanced kidney. Left kidney and ureter: No calculus. No hydronephrosis. No finding to suggest cyst or mass in the unenhanced kidney. Bladder: No calculus. Abdomen and Pelvis: Liver: Decreased attenuation. Biliary: The gallbladder is unremarkable. Spleen: No splenomegaly. Pancreas: Unremarkable Adrenals: Normal. GI Tract: No bowel dilation. Normal appendix. No diverticulosis. Lymph Nodes: No lymphadenopathy. Mesentery/peritoneum: No ascites. Vasculature: No abdominal aortic or iliac artery aneurysm. Pelvis: Right ovary is unremarkable measuring about 1.6 x 2.2 x 3.0 cm. Left ovary measures 5.3 x 3.6 x 3.1 cm with contiguous low-attenuation densities less than 3 cm in diameter cyst in follicles, versus a septated cyst. Bones and Soft Tissues: No acute abnormality. Lower thorax: Unremarkable. Localizer images: No additional findings. IMPRESSION: No evidence of urinary tract calculus or hydronephrosis. Somewhat prominent LEFT ovary with contiguous follicles versus septated cyst. Waiter/Waitress Take Out: SADIE Transcribe Date/Time: Apr 28 2024 12:19P Dictated by : MILDRED NÚÑEZ MD This examination was interpreted and the report reviewed and electronically signed by: MILDRED NÚÑEZ MD on Apr 28 2024 12:31PM EST [id number] Normal [facility] Comprehensive metabolic 2000 panelon 04-28-2024 Albumin [Mass/Vol] 4.0 g/dL Normal 3.9-4.9 [facility] Comment on above: Order Comment: Vicky talley Type: BLOOD SPECIMEN [facility] Facility[facility] Address: [address] [place] [address] Performed By: #### 5 7021-8 #### [facility] CLIA [id number] [address] [place] [address] [place] ALP [Catalytic activity/Vol] 89 U/L Normal 34-123 [facility] Comment on above: Order Comment: Speci gerri Type: BLOOD SPECIMEN Ordering Facility[facility] Address: [address] [place] [address] Performed By: #### 5 7021-8 #### [facility] CLIA [id number] [address] [place] ALT [Catalytic activity/Vol] 18 U/L Normal 7-38 [facility] Comment on above: Order Comment: Speci men Type: BLOOD SPECIMEN Ordering Facility: [facility] Address: [address] [place] [address] Performed By: #### 5 7021-8 #### [facility] CLIA [id number] [address] OF [facility] Anion gap [Moles/Vol] 7 mmol/L Low 8-15 [facility] Comment on above: Order Comment: Speci men Type: BLOOD SPECIMEN Ordering Facility: [facility] Address: [address] [place] [address] Performed By: #### 5 7021-8 #### [facility] CLIA [id number] [address] [place] AST [Catalytic activity/Vol] 18 U/L Normal 13-35 [facility] Comment on above: Order Comment: Speci men Type: BLOOD SPECIMEN [facility] Facility[facility] Address: [address] [place] [address] Performed By: #### 5 7021-8 #### [facility] CLIA [id number] [address] [place] OF [facility] Bilirubin [Mass/Vol] 0.5 mg/dL Normal 0.2-1.3 [facility] Comment on above: Order Comment: Speci men Type: BLOOD SPECIMEN Order[facility] Facility[facility] Address: [address] [place] [address] Performed By: #### 5 7021-8 #### [facility] CLIA [id number] [address] Calcium [Mass/Vol] 9.2 mg/dL Normal 8.5-10.2 [facility] Comment on above: Order Comment: Speci men Type: BLOOD SPECIMEN Ordering Facility: [facility] Address: [address] [place] [address] Performed By: #### 5 7021-8 #### [facility] CLIA [id number] [address] OF [facility] Chloride [Moles/Vol] 104 mmol/L Normal 98-107 [facility] Comment on above: Order Comment: Speci men Type: BLOOD SPECIMEN Order[facility] Facility[facility] Address: [address] [place] [address] Performed By: #### 5 7021-8 #### [facility] CLIA [id number] [address] [place] [address] [place] CO2 [Moles/Vol] 27 mmol/L Normal 22-30 [facility] Comment on above: Order Comment: Vicky talley Type: BLOOD SPECIMEN Ordering Facility[facility] Address: [address] [place] [address] Performed By: #### 5 7021-8 #### [facility] CLIA [id number] [address] OF [facility] Creatinine [Mass/Vol] 0.76 mg/dL Normal 0.58-0.96 [facility] Comment on above: Order Comment: Vicky men Type: BLOOD SPECIMEN Order[facility] Facility[facility] Address: [address] [place] [address] Performed By: #### 5 7021-8 #### [facility] CLIA [id number] [address] Creatinine and Glomerular filtration rate.predicted panel (S/P/Bld) 100 mL/min/1.73m??? Normal >=60 [facility] Comment on above: Order Comment: Rauli gerri Type: BLOOD SPECIMEN Ordering Facility: [facility] Address: [address] [place] [address] Result Comment: Nancy mated Glomerular Filtration Rate (eGFR) is calculated using the 2020 CKD-EPI creatinine equation. This equation utilizes serum creatinine, sex, and age as parameters. The creatinine assay has traceable calibration to isotope dilution-mass spectrometry. Refer to KDIGO guidelines for clinical interpretation. In patients with unstable renal function, e.g. those with acute kidney injury, the eGFR may not accurately reflect actual GFR. Performed By: #### 5 7021-8 #### [facility] CLIA [id number] [address] [place] Glucose [Mass/Vol] 103 mg/dL High 74-99 [facility] Comment on above: Order Comment: Rauli gerri Type: BLOOD SPECIMEN Ordering Facility: [facility] Address: [address] [place] [address] Result Comment: The [place] Diabetes Association (ADA) provides guidance for cutoff values for fasting glucose and random glucose. The ADA defines fasting as no caloric intake for at least 8 hours. Fasting plasma glucose results between 100 to 125 mg/dL indicate increased risk for diabetes (prediabetes). Fasting plasma glucose results greater than or equal to 126 mg/dL meet the criteria for diagnosis of diabetes. In the absence of unequivocal hyperglycemia, results should be confirmed by repeat testing. In a patient with classic symptoms of hyperglycemia or hyperglycemic crisis, random plasma glucose results greater than or equal to 200 mg/dL meet the criteria for diagnosis of diabetes. Reference: Standards of Medical Care in Diabetes 2016, [place] Diabetes Association. Diabetes Care. 2016.39(Suppl 1). Performed By: #### 5 7021-8 #### [facility] CLIA [id number] [address] [place] [address] [place] Potassium [Moles/Vol] 4.1 mmol/L Normal 3.7-5.1 [facility] Comment on above: Order Comment: Speci men Type: BLOOD SPECIMEN Ordering Facility: [facility] Address: [address] [place] [address] Performed By: #### 5 7021-8 #### [facility] CLIA [id number] [address] [place] [address] [place] Protein [Mass/Vol] 7.0 g/dL Normal 6.3-8.0 [facility] Comment on above: Order Comment: Speci men Type: BLOOD SPECIMEN Ordering Facility: [facility] Address: [address] [place] [address] Performed By: #### 5 7021-8 #### [facility] CLIA [id number] [address] [place] [address] [place] Sodium [Moles/Vol] 138 mmol/L Normal 136-144 [facility] Comment on above: Order Comment: Speci men Type: BLOOD SPECIMEN Ordering Facility: [facility] Address: [address] [place] [address] Performed By: #### 5 7021-8 #### [facility] CLIA [id number] [address] [place] [address] [place] Urea nitrogen [Mass/Vol] 12 mg/dL Normal 7-21 [facility] Comment on above: Order Comment: Speci men Type: BLOOD SPECIMEN Ordering Facility: [facility] Address: [address] [place] [id number] Performed By: #### 5 7021-8 #### [facility] CLIA [id number] [address] [place] [address] [facility] [place] ED NOTEon 04-28-2024 ED NOTE HNO ID: [id number] Author: VENKATESH BUSTAMANTE RN Service: Nursing Author Type: Registered Nurse Type: ED Notes Filed: 04/28/2024 13:29 Note Text: Pt discharged from the facility at this time in satisfactory condition. Pt peripheral IV removed prior to discharge. Pt educated on how to schedule follow up appt with PCP. This nurse reviewed entire discharge packet with Pt including: medications, side effects, s/s to report to MD. Pt verbalized understanding. Pt has a ride home. Pt left with all personal belongings exiting the facility. [facility] ED PROV NOTEon 04-28-2024 ED PROV NOTE HNO ID: [id number] Author: ANOOP VILLARREAL III, MD Service: ? Author Type: Physician Type: ED Provider Notes Filed: 04/28/2024 13:18 Note Text: ED Provider Note Patient Name: Maryse Logan : 1980 SERVICE DATE: 04/28/24 History Patient presents with: Pelvic Pain: Patient presents to ED with bilateral pelvic and lower abdominal pain she reports to be in my ovaries. She had an ablation three weeks ago and still has some continued vaginal bleeding with return of small amounts of bright red blood. Denies any other associated symptoms. This is a 43-year-old female who presents to the emergency department with a complaint of lower pelvic pain and vaginal bleeding. Patient is status posthysteroscopy DANDC with polyp resection and endometrial ablation at [facility] on 04/05/2024. She states she currently has some mild vaginal bleeding and lower abdominal pain and flank pain. She denies associated nausea vomiting denies fever. PAST MEDICAL HISTORY No date: Attention deficit disorder without mention of hyperactivity No date: Obesity, unspecified No date: Other and unspecified ovarian cyst No date: Unspecified asthma(493.90) PAST SURGICAL HISTORY 01/2024: COLONOSCOPY SCREENING Comment: every 10 year 01/2024: EGD W/O BRSH SPEC VARICIES INJ No date: EXTRACTION ERUPTED TOOTH/EXR 02/2024: FIBROSCAN Comment: liver 04/05/2024: HYSTEROSCOPY REMOVAL LEIOMYOMATA Comment: and Breana endometrial ablation No date: IUD REMOVAL/INSERTION PROCEDURE (W NOTE) Comment: removed 2021 approx No date: MYRINGOTOMY ASPIRAND/EUSTACHIAN TUBE NFLTJ ANES Comment: Myringotomy/tubes FAMILY HISTORY Problem Relation Age of Onset Diabetes Mother type 2 Alcohol/Drug Sister Social History Tobacco Use Smoking status: Never Smokeless tobacco: Never Vaping Use Vaping status: Never Used Substance and Sexual Activity Alcohol use: No Drug use: No Sexual activity: Yes ALLERGIES Allergen Reactions Seldane Rash Suprax [Cefixime] Rash Review of Systems Constitutional: Negative for fever. HENT: Negative for congestion. Eyes: Negative for discharge. Respiratory: Negative for chest tightness. Cardiovascular: Negative for chest pain. Gastrointestinal: Negative for abdominal pain. Genitourinary: Positive for pelvic pain and vaginal bleeding. Musculoskeletal: Negative for back pain. Skin: Negative for rash. Neurological: Negative for dizziness. Psychiatric/Behavioral: Negative for agitation. Physical Exam Vitals [04/28/24 0932] BP Pulse Temp Temp src Resp SpO2 Weight Height 122/81 83 36.8 ?C (98.2 ?F) Oral 20 100 % 113.4 kg (250 lb) -- Physical Exam Vitals and nursing note reviewed. HENT: Head: Normocephalic and atraumatic. Mouth/Throat: Mouth: Mucous membranes are moist. Eyes: General: Right eye: No discharge. Left eye: No discharge. Cardiovascular: Rate and Rhythm: Normal rate. Pulmonary: Effort: Pulmonary effort is normal. No respiratory distress. Breath sounds: No wheezing. Abdominal: Tenderness: There is abdominal tenderness in the right lower quadrant and left lower quadrant. Musculoskeletal: General: No deformity. Cervical back: Normal range of motion. Skin: Findings: No rash. Neurological: Mental Status: She is alert. Psychiatric: Mood and Affect: Mood normal. Diagnostic Testing ED Labs Ordered and Reviewed COMPLETE BLOOD COUNT AND DIFFERENTIAL - Abnormal; Notable for the following components: Result Value Ref Range Abs Neut 7.77 (*) 1.45 - 7.50 k/uL All other components within normal limits COMPREHENSIVE METABOLIC PANEL - Abnormal; Notable for the following components: Glucose 103 (*) 74 - 99 mg/dL Anion Gap 7 (*) 8 - 15 mmol/L All other components within normal limits URINALYSIS WITH MICROSCOPIC, REFLEX CULTURE - Abnormal; Notable for the following components: Hemoglobin/Blood,Ur 3+ (*) Negative Leuk Esterase Trace (*) Negative RBC, Urine 11-25 /HPF (*) 0-3 /HPF Bacteria Few (*) None Seen /HPF All other components within normal limits MAGNESIUM - Normal HCG QUALITATIVE - Normal Procedures ED Course / Clinical Impression Clinical Impressions as of 04/28/24 1316 Vaginal bleeding Lower abdominal pain MDM / Disposition / Plan CBC is unremarkable CMP is unremarkable magnesium is normal test is negative UA was without sign of UTI she is noted to have hematuria but this is in the presence of vaginal bleeding. Ultrasound reveals no sign of ovarian torsion though is limited a fundal fibroid is also visualized. A CT scan of the flank was also ordered which reveals no evidence of urinary tract calculus hydronephrosis there is some prominent left ovary with continuous fell close versus septated cyst. 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 History (more content not included)... Normal [facility] HCG QUALITATIVEon 04-28-2024 HCG, QUALITATIVE Negative Normal Negative [facility] Comment on above: Order Comment: Speci men Type: BLOOD SPECIMEN Ordering Facility: [facility] Address: [address] [place], [place] [id number] Performed By: #### 5 7021-8 #### [facility] CLIA [id number] [address] [place] [address] [place] Magnesium SerPl-mCncon 04-28 Magnesium [Mass/Vol] 1.9 mg/dL Normal 1.7-2.3 [facility] Comment on above: Order Comment: Speci men Type: BLOOD SPECIMEN Ordering Facility: [facility] Address: [address] [place] [address] Performed By: #### 5 7021-8 #### [facility] CLIA [id number] [address] [place] [address] [place] US DOPPLER COMPLETEon 2023 US DOPPLER COMPLETE * * *Final Report* * * DATE OF EXAM: Apr 28 2024 11:14AM SUDHAKAR 1033 - US DOPPLER COMPLETE / PROCEDURE REASON: Ovarian torsion * * * * Physician Interpretation * * * * EXAMINATION: TRANSVAGINAL AND LIMITED TRANSABDOMINAL FEMALE PELVIC ULTRASOUND CLINICAL HISTORY: Bilateral pelvic pain. 3 weeks status post ablation of TECHNIQUE: Sonography of the pelvis was performed by transvaginal and transabdominal (limited) techniques. Images were obtained and stored in a permanent archive. MQ: UFP_2021 COMPARISON: None RESULT: Imaging limited by patient tolerance. Uterus: -Size: 11.4 x 7.2 x 6.3 cm -Orientation: Anteverted -Endometrial echo complex: Evaluation of the endometrium was adequate. No endometrial abnormality. The endometrial echo complex measured 1.1 cm. -Cervix: Unremarkable. -Adenomyosis assessment: There are no sonographic findings of adenomyosis. -Fibroids: Lateral fundal heterogeneous fibroid 2.3 x 2.1 x 2.1 cm. Right Ovary: 2.6 x 1.8 x 1.4 Imaging somewhat limited by positioning posterior to the uterus. There appears to be arterial and venous blood flow in the ovary on color and duplex Doppler imaging. Left Ovary: Not clearly identified Free Fluid: No abnormal free fluid is present. IMPRESSION: No free suggestive of RIGHT ovarian torsion, with assessment somewhat limited. Nonvisualization LEFT ovary. Fundal fibroid. Waiter/Waitress Take Out: SADIE Transcribe Date/Time: Apr 28 2024 11:31A Dictated by : MILDRED NÚÑEZ MD This examination was interpreted and the report reviewed and electronically signed by: MILDRED NÚÑEZ MD on Apr 28 2024 11:37AM EST [id number] [facility] US FEMALE PELV TRANSABD COMP LETEon 04-28-2024 US FEMALE PELV TRANSABD COMPLETE * * *Final Report* * * DATE OF EXAM: Apr 28 2024 11:14AM U 1065 - US FEMALE PELV TRANSABD COMPLETE / PROCEDURE REASON: Ovarian torsion * * * * Physician Interpretation * * * * EXAMINATION: TRANSVAGINAL AND LIMITED TRANSABDOMINAL FEMALE PELVIC ULTRASOUND CLINICAL HISTORY: Bilateral pelvic pain. 3 weeks status post ablation of TECHNIQUE: Sonography of the pelvis was performed by transvaginal and transabdominal (limited) techniques. Images were obtained and stored in a permanent archive. MQ: UFP_2021 COMPARISON: None RESULT: Imaging limited by patient tolerance. Uterus: -Size: 11.4 x 7.2 x 6.3 cm -Orientation: Anteverted -Endometrial echo complex: Evaluation of the endometrium was adequate. No endometrial abnormality. The endometrial echo complex measured 1.1 cm. -Cervix: Unremarkable. -Adenomyosis assessment: There are no sonographic findings of adenomyosis. -Fibroids: Lateral fundal heterogeneous fibroid 2.3 x 2.1 x 2.1 cm. Right Ovary: 2.6 x 1.8 x 1.4 Imaging somewhat limited by positioning posterior to the uterus. There appears to be arterial and venous blood flow in the ovary on color and duplex Doppler imaging. Left Ovary: Not clearly identified Free Fluid: No abnormal free fluid is present. IMPRESSION: No free suggestive of RIGHT ovarian torsion, with assessment somewhat limited. Nonvisualization LEFT ovary. Fundal fibroid. Waiter/Waitress Take Out: SADIE Transcribe Date/Time: Apr 28 2024 11:31A Dictated by : MILDRED NÚÑEZ MD This examination was interpreted and the report reviewed and electronically signed by: MILDRED NÚÑEZ MD on Apr 28 2024 11:37AM EST [id number] [facility] US FEMALE PELVIS TRANSVAGon 04-28-2024 US FEMALE PELVIS TRANSVAG * * *Final Report* * * DATE OF EXAM: Apr 28 2024 11:14AM U 1060 - US FEMALE PELVIS TRANSVAG / PROCEDURE REASON: Ovarian torsion * * * * Physician Interpretation * * * * EXAMINATION: TRANSVAGINAL AND LIMITED TRANSABDOMINAL FEMALE PELVIC ULTRASOUND CLINICAL HISTORY: Bilateral pelvic pain. 3 weeks status post ablation of TECHNIQUE: Sonography of the pelvis was performed by transvaginal and transabdominal (limited) techniques. Images were obtained and stored in a permanent archive. MQ: [facility]_2021 COMPARISON: None RESULT: Imaging limited by patient tolerance. Uterus: -Size: 11.4 x 7.2 x 6.3 cm -Orientation: Anteverted -Endometrial echo complex: Evaluation of the endometrium was adequate. No endometrial abnormality. The endometrial echo complex measured 1.1 cm. -Cervix: Unremarkable. -Adenomyosis assessment: There are no sonographic findings of adenomyosis. -Fibroids: Lateral fundal heterogeneous fibroid 2.3 x 2.1 x 2.1 cm. Right Ovary: 2.6 x 1.8 x 1.4 Imaging somewhat limited by positioning posterior to the uterus. There appears to be arterial and venous blood flow in the ovary on color and duplex Doppler imaging. Left Ovary: Not clearly identified Free Fluid: No abnormal free fluid is present. IMPRESSION: No free suggestive of RIGHT ovarian torsion, with assessment somewhat limited. Nonvisualization LEFT ovary. Fundal fibroid. Waiter/Waitress Take Out: PSCB Transcribe Date/Time: Apr 28 2024 11:31A Dictated by : MILDRED NÚÑEZ MD This examination was interpreted and the report reviewed and electronically signed by: MILDRED NÚÑEZ MD on Apr 28 2024 11:37AM EST [id number] Normal [facility] Urinalysis complete panel (U )on 04-28-2024 Bacteria LM.HPF (Urine sed) [#/Area] Few Abnormal None Seen [facility] Comment on above: Order Comment: Speci men Type: URINE SPECIMEN Ordering Facility: [facility] Address: [address] [place] [address] Performed By: #### 2 4356-8 #### [facility] CLIA [id number] [address] Bilirubin Ql (U) Negative Normal Negative [facility] Comment on above: Order Comment: Speci men Type: URINE SPECIMEN Ordering Facility: [facility] Address: [address] [place] [address] Performed By: #### 2 4356-8 #### [facility] CLIA [id number] [address] [place] Clarity (Unsp spec) Clear Normal Clear [facility] Comment on above: Order Comment: Speci men Type: URINE SPECIMEN Ordering Facility: [facility] Address: [address] [place] [address] Performed By: #### 2 4356-8 #### [facility] CLIA [id number] [address] Color (U) Yellow Normal Yellow [facility] Comment on above: Order Comment: Speci men Type: URINE SPECIMEN Ordering Facility: [facility] Address: [address] [place] [address] Performed By: #### 2 4356-8 #### [facility] CLIA [id number] [address] [place] Epithelial cells LM.HPF (Urine sed) [#/Area] Few Normal [facility] Comment on above: Order Comment: Speci men Type: URINE SPECIMEN Ordering Facility: [facility] Address: [address] [place] [address] Performed By: #### 2 4356-8 #### [facility] CLIA [id number] [address] [place] Glucose Test strip (U) [Mass/Vol] Negative Normal Negative [facility] Comment on above: Order Comment: Speci men Type: URINE SPECIMEN Ordering Facility: [facility] Address: [address] [place] [address] Performed By: #### 2 4356-8 #### [facility] CLIA [id number] [address] Hemoglobin Ql (U) 3+ Abnormal Negative [facility] Comment on above: Order Comment: Speci men Type: URINE SPECIMEN Ordering Facility: [facility] Address: [address] [place] [address] Performed By: #### 2 4356-8 #### [facility] CLIA [id number] [address] Ketones Ql (U) Negative Normal Negative [facility] Comment on above: Order Comment: Speci men Type: URINE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 Comprehensive metabolic 2000 panel - Serum or Plasma [facility] Comment on above: Expected: 08/10/2024 , Expires: 11/09/2024 Start: 08-10-2024 End: 11-09-2024 COPPER BLOOD [facility] Comment on above: Expected: 08/10/2024 , Expires: 11/09/2024 Start: 08-10-2024 End: 11-09-2024 Cortisol [Mass/volume] in Serum or Plasma [facility] Comment on above: Expected: 08/10/2024 , Expires: 11/09/2024 Start: 08-10-2024 End: 11-09-2024 Cyclic citrullinated peptide IgG Ab [Units/volume] in Serum or Plasma [facility] Comment on above: Expected: 08/10/2024 , Expires: 11/09/2024 Start: 08-10-2024 End: 11-09-2024 DHEA-S BLD [facility] Comment on above: Expected: 08/10/2024 , Expires: 11/09/2024 Start: 08-10-2024 End: 11-09-2024 Ferritin [Mass/volume] in Serum or Plasma [facility] Comment on above: Expected: 08/10/2024 , Expires: 11/09/2024 Start: 08-10-2024 End: 11-09-2024 Gamma glutamyl transferase [Enzymatic activity/volume] in Serum or Plasma [facility] Comment on above: Expected: 08/10/2024 , Expires: 11/09/2024 Start: 08-10-2024 End: 11-09-2024 Hemoglobin A1c in Blood [facility] Comment on above: Expected: 08/10/2024 , Expires: 11/09/2024 Start: 08-10-2024 End: 11-09-2024 Homocysteine [Moles/volume] in Serum or Plasma [facility] Comment on above: Expected: 08/10/2024 , Expires: 11/09/2024 Start: 08-10-2024 End: 11-09-2024 Insulin [Units/volume] in Serum or Plasma [facility] Comment on above: Expected: 08/10/2024 , Expires: 11/09/2024 Start: 08-10-2024 End: 11-09-2024 Iron and Iron binding capacity panel - Serum or Plasma [facility] Comment on above: Expected: 08/10/2024 , Expires: 11/09/2024 Start: 08-10-2024 End: 11-09-2024 Lead [Mass/volume] in Blood [facility] Comment on above: Expected: 08/10/2024 , Expires: 11/09/2024 Start: 08-10-2024 End: 11-09-2024 Leptin [Mass/volume] in Serum or Plasma [facility] Comment on above: Expected: 08/10/2024 , Expires: 11/09/2024 Start: 08-10-2024 End: 11-09-2024 MAGNESIUM RBC [facility] Comment on above: Expected: 08/10/2024 , Expires: 11/09/2024 Start: 08-10-2024 End: 11-09-2024 Mercury [Mass/volume] in Blood [facility] Comment on above: Expected: 08/10/2024 , Expires: 11/09/2024 Start: 08-10-2024 End: 11-09-2024 Methylmalonate [Moles/volume] in Serum or Plasma [facility] Comment on above: Expected: 08/10/2024 , Expires: 11/09/2024 Start: 08-10-2024 End: 11-09-2024 Nuclear Ab [Presence] in Serum by Immunoassay [facility] Comment on above: Expected: 08/10/2024 , Expires: 11/09/2024 Start: 08-10-2024 End: 11-09-2024 [facility] Work Phone: Comment on above: Expected: 08/10/2024 , Expires: 11/09/2024 Start: 08-10-2024 End: 11-09-2024 Pyridoxine [Mass/volume] in Serum or Plasma [facility] Comment on above: Expected: 08/10/2024 , Expires: 11/09/2024 Start: 08-10-2024 End: 11-09-2024 Retinol [Mass/volume] in Serum or Plasma [facility] Comment on above: Expected: 08/10/2024 , Expires: 11/09/2024 Start: 08-10-2024 End: 11-09-2024 RHEUMATOID FACTOR MGA [facility] Comment on above: Expected: 08/10/2024 , Expires: 11/09/2024 Start: 08-10-2024 End: 11-09-2024 Riboflavin [Moles/volume] in Serum or Plasma [facility] Comment on above: Expected: 08/10/2024 , Expires: 11/09/2024 Start: 08-10-2024 End: 11-09-2024 Thyrotropin [Units/volume] in Serum or Plasma [facility] Comment on above: Expected: 08/10/2024 , Expires: 11/09/2024 Start: 08-10-2024 End: 11-09-2024 Thyroxine (T4) free [Mass/volume] in Serum or Plasma [facility] Comment on above: Expected: 08/10/2024 , Expires: 11/09/2024 Start: 08-10-2024 End: 11-09-2024 Tissue transglutaminase IgA Ab [Units/volume] in Serum [facility] Comment on above: Expected: 08/10/2024 , Expires: 11/09/2024 Start: 08-10-2024 End: 11-09-2024 Tissue transglutaminase IgG Ab [Units/volume] in Serum [facility] Comment on above: Expected: 08/10/2024 , Expires: 11/09/2024 Start: 08-10-2024 End: 11-09-2024 Transferrin [Mass/volume] in Serum or Plasma [facility] Comment on above: Expected: 08/10/2024 , Expires: 11/09/2024 Start: 08-10-2024 End: 11-09-2024 Triiodothyronine (T3) Free [Mass/volume] in Serum or Plasma [facility] Comment on above: Expected: 08/10/2024 , Expires: 11/09/2024 Start: 08-10-2024 End: 11-09-2024 Urate [Mass/volume] in Serum or Plasma [facility] Comment on above: Expected: 08/10/2024 , Expires: 11/09/2024 Start: 08-10-2024 End: 11-09-2024 VITAMIN B1 (THIAMINE), WHOLE BLOOD [facility] Comment on above: Expected: 08/10/2024 , Expires: 11/09/2024 Start: 08-10-2024 End: 11-09-2024 Zinc [Mass/volume] in Serum or Plasma [facility] Comment on above: Expected: 08/10/2024 , Expires: 11/09/2024 Start: 08-10-2024 End: 08-10-2024 ambulatory Functional Medicine Comment on above: liver disease and au to immune issues Start: 08-10-2024 End: 08-10-2024 Patient encounter procedure Functional Medicine Comment on above: liver disease and au to immune issues Start: 04-22-2024 Covid-19 Vaccine () Covid-19 Vaccine () [facility] Start: 04-22-2024 Covid-19 Vaccine () Covid-19 Vaccine () [facility] Start: 04-22-2024 Influenza vaccination C [facility] Start: 08-22-20[address] [facility] Start: 04-22-2023 Covid-19 Vaccine () Covid-19 Vaccine () [facility] Start: 04-22-2023 Influenza vaccination Influenz a Vaccine (#1) [facility] Start: 08-22-2022 Depression Assessment Depression Ass essment [facility] Start: 04-22-2022 Influenza vaccination Influenz a Vaccine (#1) [facility] Start: 01-12-2021 COVID-19 Vaccine (3 - Booster for Pfizer series) COVID-19 Vaccine (3 - Booster for Pfizer series) [facility] Start: 2020 Screening for malign ant neoplasm of breast [facility] Start: 01-03-2013 Screening for malign ant neoplasm of cervix Pap Testing [facility] Start: 01-03-2011 Screening for malign ant neoplasm of cervix Cervical Cancer Screening [facility] Start: 2010 Screening for malign ant neoplasm of cervix [facility] Start: 2007 HPV Vaccine (1 - 3-d ose SCDM series) HPV Vaccine (1 - 3-dose SCDM series) [facility] Start: 2001 Screening for malign ant neoplasm of cervix Pap Smear [facility] Start: 1999 DTaP/Tdap/Td Vaccine s (1 - Tdap) DTaP/Tdap/Td Vaccines (1 - Tdap) [facility] Start: 1999 Hepatitis A Vaccine (1 of 2 - Risk 2-dose series) Hepatitis A Vaccine (1 of 2 - Risk 2-dose series) [facility] Start: 1999 Hepatitis B Vaccine (1 of 3 - 19+ 3-dose series) Hepatitis B Vaccine (1 of 3 - 19+ 3-dose series) [facility] Start: 1999 Urine microalbumin profile DTa P,Tdap,Td Vaccine (1 - Tdap) [facility] Start: 1998 Anxiety Screening Anxiety Screening [facility] Start: 1998 Depression Screening Depression Scre ening [facility] Start: 1998 Diabetes mellitus screening Diabetes Screening [facility] Start: 1998 Hepatitis C screening Hepatitis C Sc geri [facility] Start: 1998 HIV screening HIV Screening [facility] Start: 1981 MMR Vaccines (1 of 1 - Standard series) MMR Vaccines (1 of 1 - Standard series) [facility] Start: 1981 Varicella vaccination Varicell a Vaccines (1 of 2 - 2-dose childhood series) [facility] Start: 1980 Hepatitis B Vaccine (1 of 3 - 3-dose series) Hepatitis B Vaccine (1 of 3 - 3-dose series) [facility] Start: 1980 Hepatitis B Vaccines (1 of 3 - 3-dose series) Hepatitis B Vaccines (1 of 3 - 3-dose series) [facility] Start: 1980 HIV screening HIV Screening [facility] Start: 1980 Lipid panel Lipid Panel [facility] OUTSIDE PROCEDURE SCAN OUTSIDE P ROCEDURE SCAN Procedures Ordered: 10/06/2022 [facility] Comment on above: Ordered: 10/06/2022 End: 04-19-2026 US Pelvis limited US FEMALE PELVIS TRANSABD LTD Radiology Routine Pelvic pain 1 Occurrences starting 03/20/2025 until 04/19/2026 [facility] Comment on above: 1 Occurrences starti ng 03/20/2025 until 04/19/2026 US Pelvis limited US FEMALE PELV IS TRANSABD LTD Radiology Routine Pelvic pain 03/22/2025 2:19 PM EDT [facility] Work Phone: End: 04-19-2026 US Pelvis transvaginal US FEMALE PELVIS TRANSVAG Radiology Routine Pelvic pain 1 Occurrences starting 03/20/2025 until 04/19/2026 [facility] Comment on above: 1 Occurrences starti ng 03/20/2025 until 04/19/2026 US Pelvis transvaginal US FEMALE PELVIS TRANSVAG Radiology Routine Pelvic pain 03/22/2025 2:19 PM EDT [facility] Immunizations Immunization Date Immunization Notes Care Provider Fa rico 11-17-2020 COVID-19 original vaccine, age 12+ yr, monovalent (PFIZER-BIONTECH - PURPLE TOP) Ramon Rafa [employer] Work Phone: [facility] Work Phone: 10-27-2020 COVID-19 original vaccine, age 12+ yr, monovalent (PFIZER-BIONTECH - PURPLE TOP) Ramon Rafa [employer]TER Work Phone: [facility] Work Phone: Payers Date Payer Category Payer Unknown [id number] 2025 Self-pay [id number] 2023 Unknown [id number] 2022 Unknown [id number] 2022 Unknown [id number] 2020 Private Health Insurance [id number] 2011 Private Health Insurance [id number] Unknown [id number] Unknown [id number] Unknown [id number] Social History Date Type Detail Facility Start: 03-16-2021 Tobacco smoking stat us NHIS Unknown if ever smoked [facility] Work Phone: Start: 1980 Sex Assigned At Female C [facility] Start: 05-29-2022 End: 03-22-2024 Tobacco smoking status NHIS Never smoked tobacco [facility] Start: 08-05-2017 End: 05-29-2022 Tobacco use and exposure Smokeless tobacco non-user [facility] Start: 08-02-2023 End: 03-25-2025 Alcohol intake Current non-drinker of alcohol (finding) [facility] Start: 08-02-2023 End: 02-17-2024 History of Social function [facility] Start: 08-02-2023 End: 02-17-2024 Tobacco use panel [facility] Start: 03-07-2025 National Score (1-10 0), lower number is lower risk Not on file [facility] Start: 08-02-2023 Gender identity Identifies as male gender (finding) [facility] Work Phone: Start: 04-14-2021 Sexual orientation Homosexual (findi ng) [facility] Start: 12-01-2020 Alcohol intake Lifetime non-d raine (finding) [facility] Start: 1980 Sex Assigned At Not on file [facility] Start: 09-26-2022 End: 10-06-2022 Exposure to SARS-CoV-2 (event) Not sure [facility] Functional Status Date Assessment Result Facility 02-11-2015 Are you deaf, or do you have serious difficulty hearing No 02/11/2015 9:05 AM Tanya Granados RN No [facility] 02-11-2015 Are you blind, or do you have serious difficulty seeing, even when wearing glasses No 02/11/2015 9:05 AM Tanya Granados RN No [facility] 02-11-2015 Do you have serious difficulty walking or climbing stairs No 02/11/2015 9:05 AM Tanya Granados RN No [facility] 02-11-2015 Do you have difficul ty dressing or bathing No 02/11/2015 9:05 AM Tanya Granados RN No [facility] 02-11-2015 Because of a physica l, mental, or emotional condition, do you have difficulty doing errands alone such as visiting a physician's office or shopping No 02/11/2015 9:05 AM EDT Tanya Delgadillo RN No [facility] Mental Status Date Assessment Result Facility 02-11-2015 Because of a physica l, mental, or emotional condition, do you have serious difficulty concentrating, remembering, or making decisions No 02/11/2015 9:05 AM EDT Tanya Delgadillo RN No [facility] Clinical Notes 07-29-2021 to 04-02-2025 Barber Potts MD - 04/02/2025 2:07 AM Barber Bacon MD - 04/02/2025 2:07 AM Barber Bacon MD - 04/02/2025 2:07 AM Alexis Isaacs LPN - 03/25/2025 11:11 AM EDT Note Date & Type Note Facility 04-02-2025 History and physical note Pre-Op History and Physical HPI: The patient is a 44 year old female presenting for pre-operative visit. She is scheduled for [facility] with bilateral salpingectomy and cystoscopy, for postendometrial ablation syndrome, fibroids, dysmenorrhea and menorrhagia with irregular cycles on . Procedure discussed along with risks, benefits and complications. Other alternatives discussed for management. Consent form signed? Yes. PAST MEDICAL HISTORY Diagnosis Date Attention deficit disorder without mention of hyperactivity Obesity, unspecified Other and unspecified ovarian cyst Unspecified asthma(493.90) PAST SURGICAL HISTORY Procedure Laterality Date COLONOSCOPY SCREENING 01/2024 every 10 year EGD W/O BRSH SPEC VARICIES INJ 01/2024 EXTRACTION ERUPTED TOOTH/EXR FIBROSCAN 02/2024 liver HYSTEROSCOPY REMOVAL LEIOMYOMATA 04/05/2024 and Breana endometrial ablation IUD REMOVAL/INSERTION PROCEDURE (W NOTE) removed 2021 approx MYRINGOTOMY ASPIR&/EUSTACHIAN TUBE NFLTJ ANES Myringotomy/tubes Current Outpatient Medications Medication Sig Dispense Refill naproxen (NAPROSYN) 500 mg tablet Take 500 mg by mouth two times a day with meals. (Patient taking differently: Take 500 mg by mouth as needed for pain.) methocarbamol (ROBAXIN) 750 mg tablet Take 1 tablet by mouth three times a day as needed (cramping or muscle spasms). 60 tablet 0 ondansetron (ZOFRAN) 4 mg tablet Take 1 tablet by mouth every 8 hours as needed for nausea/vomiting. 30 tablet 1 metFORMIN (GLUCOPHAGE) 500 mg tablet Take 500 mg by mouth. NOT STARTED YET fluticasone-salmeterol (ADVAIR DISKUS) 100-50 mcg/dose inhaler 1 Puff. LORazepam (ATIVAN) 0.5 mg 1 tablet Orally Twice a day prn F41.1 MAGNESIUM ORAL Take by mouth. cholecalciferol, vitamin D3, (VITAMIN D3 ORAL) Take by mouth. TURMERIC ORAL Take by mouth. MULTIVITAMIN ORAL Take by mouth. clobetasol (TEMOVATE) 0.05 % ointment Apply to affected area as needed (flare up). fexofenadine HCl (TITA ORAL) Take by mouth. citalopram (CELEXA) 20 mg tablet fluticasone (FLOVENT HFA) 110 mcg/actuation inhaler Inhale 2 Puffs as instructed twice daily. 1 Inhaler 5 albuterol HFA (PROAIR HFA) 90 mcg/actuation inhaler Inhale 2 Puffs as instructed every 4 hours as needed. 1 Inhaler 0 prochlorperazine (COMPAZINE) 10 mg tablet Take 1 tablet by mouth every 6 hours as needed for nausea/vomiting (nausea). 30 tablet 1 montelukast (SINGULAIR) 10 mg tablet Take 1 tablet by mouth daily at bedtime. 30 tablet 0 No current facility-administered medications for this visit. ALLERGIES: Seldane and Suprax [Cefixime] PERSONAL HISTORY: SOCIAL HISTORY[1] FAMILY HISTORY: FAMILY HISTORY Problem Relation Age of Onset Diabetes Mother type 2 Alcohol/Drug Sister REVIEW OF SYMPTOMS: GENERAL: denies fevers or chills ENDOCRINOLOGY: has not been on steroids Cardiology : denies palpitations or chest pain Respiratory: denies SOB or cough Hematology: denies history of prolonged bleeding or easy bruising or VTE Allergy: Denies history of personal or family history of allergy to anesthesia PHYSICAL EXAMINATION: VITALS: Blood pressure 136/84, weight 116.8 kg (257 lb 6.4 oz), last menstrual period 02/04/2024. GENERAL: The patient is well nourished, well hydrated in no acute distress. , The patient is oriented to time, place, and person. NECK: Supple. No lynphadenopathy, normal thyroid, no thyromegaly. LUNGS: Clear to auscultation bilaterally. no wheezes, rhonchi or rales HEART: Regular rate and rhythm, Normal heart sounds, and No murmurs or gallops Pelvic US on 03/22/25: Uterus: -Size: 11 x 6.4 x 7.4 cm -Orientation: Anteverted -Endometrial echo complex: Evaluation of the endometrium was adequate. No endometrial abnormality. The endometrial echo complex measured 1.1 cm. Also seen is blood clot/material in the endometrial canal. -Cervix: Unremarkable. -Adenomyosis assessment: Heterogeneous myometrium. -Fibroids: A few fibroids identified, with the largest one in the fundus measuring 3.1 x 2.7 x 3.1 cm. Right Ovary: Nonvisualized. Left Ovary: Not visualized. IMPRESSION: menorrhagia w/ irreg cyclce, intramural fibroids, dysmenorrhea, post-endometrial ablation syndrome PLAN: The risks/benefits/alternatives and personal involved for the planned TLH, bilateral salpingectomy and cystoscopy were reviewed with the patient. Her questions were answered to her satisfaction and she desires to proceed. Consent was signed. I reviewed with her postop instructions and expectations. I have reviewed and updated past medical and surgical history, medications and allergies Barber Potts M.D. [1] Social History Tobacco Use Smoking status: Never Smokeless tobacco: Never Vaping Use Vaping status: Never Used Substance Use Topics Alcohol use: No Drug use: No [facility] 04-02-2025 Note HNO ID: [id number] Author: BARBER POTTS MD Service: ? Author Type: Physician Type: Progress Notes Filed: 04/02/2025 02:11 Note Text: Obstetrics and Gynecology [place] [employer] Visit Subjective Recording using ambient [employer] software for draft documentation of the visit was discussed with the patient/authorized claims service representative; all questions welcomed and answered. Patient/authorized claims service representative agreed to proceed CHIEF COMPLAINT: The patient is a 44-year-old female with a history of endometrial ablation presenting for severe menstrual cramps and abnormal bleeding. HPI: Menstrual Irregularities - Underwent endometrial ablation in March of last year. - Reports progressively worsening cramps during her cycle, similar to pre-ablation, with severe pain incapacitating for at least 2 days each month. - Pain radiates to back, causes severe nausea and vomiting, and is unrelieved by 800 mg ibuprofen or a heating pad. - Experiences tenderness even after the acute phase, lasting about a week and a half. - Recently experienced a sudden gush of blood, described as dripping down my legs, which was a new and alarming symptom. - Has tried various hormonal treatments, including Kyleena IUD and oral contraceptives, without relief. - No fevers, chills, or abnormal vaginal discharge reported. - Occasional bowel changes during episodes of severe pain. Past Diagnostic Results: - Ultrasound (Tuesday): Revealed a few fibroids. 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 Obesity, unspecified Other and unspecified ovarian cyst Unspecified asthma(493.90) PAST SURGICAL HISTORY Procedure Laterality Date COLONOSCOPY SCREENING 01/2024 every 10 year EGD W/O BRSH SPEC VARICIES INJ 01/2024 EXTRACTION ERUPTED TOOTH/EXR FIBROSCAN 02/2024 liver HYSTEROSCOPY REMOVAL LEIOMYOMATA 04/05/2024 and Breana endometrial ablation IUD REMOVAL/INSERTION PROCEDURE (W NOTE) removed 2021 approx MYRINGOTOMY ASPIRAND/EUSTACHIAN TUBE NFLTJ ANES Myringotomy/tubes FAMILY HISTORY Problem Relation Age of Onset Diabetes Mother type 2 Alcohol/Drug Sister SOCIAL HISTORY[1] Current Outpatient Medications Medication Sig naproxen (NAPROSYN) 500 mg tablet Take 500 mg by mouth two times a day with meals. (Patient taking differently: Take 500 mg by mouth as needed for pain.) methocarbamol (ROBAXIN) 750 mg tablet Take 1 tablet by mouth three times a day as needed (cramping or muscle spasms). ondansetron (ZOFRAN) 4 mg tablet Take 1 tablet by mouth every 8 hours as needed for nausea/vomiting. metFORMIN (GLUCOPHAGE) 500 mg tablet Take 500 mg by mouth. NOT STARTED YET fluticasone-salmeterol (ADVAIR DISKUS) 100-50 mcg/dose inhaler 1 Puff. LORazepam (ATIVAN) 0.5 mg 1 tablet Orally Twice a day prn F41.1 MAGNESIUM ORAL Take by mouth. cholecalciferol, vitamin D3, (VITAMIN D3 ORAL) Take by mouth. TURMERIC ORAL Take by mouth. MULTIVITAMIN ORAL Take by mouth. clobetasol (TEMOVATE) 0.05 % ointment Apply to affected area as needed (flare up). fexofenadine HCl (TITA ORAL) Take by mouth. citalopram (CELEXA) 20 mg tablet fluticasone (FLOVENT HFA) 110 mcg/actuation inhaler Inhale 2 Puffs as instructed twice daily. albuterol HFA (PROAIR HFA) 90 mcg/actuation inhaler Inhale 2 Puffs as instructed every 4 hours as needed. prochlorperazine (COMPAZINE) 10 mg tablet Take 1 tablet by mouth every 6 hours as needed for nausea/vomiting (nausea). montelukast (SINGULAIR) 10 mg tablet Take 1 tablet by mouth daily at bedtime. No current facility-administered medications for this visit. ALLERGIES Allergen Reactions Seldane Rash Suprax [Cefixime] Rash REVIEW OF SYSTEMS: Constitutional: (-) fever, (-) chills Gastrointestinal: (+) abdominal cramping, (+) nausea, (+) vomiting Genitourinary: (+) heavy vaginal bleeding, (+) pelvic pain, (+) pelvic tenderness, (-) abnormal vaginal discharge, (-) vaginal pruritus, (-) vaginal burning, (-) strong vaginal odor Musculoskeletal: (+) back pain Skin: (+) abdominal laceration Neurological: (+) headache Objective SENSITIVE EXAM: The sensitive examination was discussed with the Patient or Patient's Authorized Packaging Technician. As applicable, any other physician, advance practice provider, medical student, or other health professional student that will be observing or involved in the sensitive examination for educational or training purposes was discussed with the Patient or Authorized Packaging Technician. The Patient or Authorized Packaging Technician has agreed to proceed with the sens (more content not included)... [facility] 04-02-2025 History and physical note Pre-Op History and Physical HPI: The patient is a 44 year old female presenting for pre-operative visit. She is scheduled for TLH with bilateral salpingectomy and cystoscopy, for postendometrial ablation syndrome, fibroids, dysmenorrhea and menorrhagia with irregular cycles on . Procedure discussed along with risks, benefits and complications. Other alternatives discussed for management. Consent form signed? Yes. PAST MEDICAL HISTORY Diagnosis Date Attention deficit disorder without mention of hyperactivity Obesity, unspecified Other and unspecified ovarian cyst Unspecified asthma(493.90) PAST SURGICAL HISTORY Procedure Laterality Date COLONOSCOPY SCREENING 01/2024 every 10 year EGD W/O BRSH SPEC VARICIES INJ 01/2024 EXTRACTION ERUPTED TOOTH/EXR FIBROSCAN 02/2024 liver HYSTEROSCOPY REMOVAL LEIOMYOMATA 04/05/2024 and Breana endometrial ablation IUD REMOVAL/INSERTION PROCEDURE (W NOTE) removed 2021 approx MYRINGOTOMY ASPIR&/EUSTACHIAN TUBE NFLTJ ANES Myringotomy/tubes Current Outpatient Medications Medication Sig Dispense Refill naproxen (NAPROSYN) 500 mg tablet Take 500 mg by mouth two times a day with meals. (Patient taking differently: Take 500 mg by mouth as needed for pain.) methocarbamol (ROBAXIN) 750 mg tablet Take 1 tablet by mouth three times a day as needed (cramping or muscle spasms). 60 tablet 0 ondansetron (ZOFRAN) 4 mg tablet Take 1 tablet by mouth every 8 hours as needed for nausea/vomiting. 30 tablet 1 metFORMIN (GLUCOPHAGE) 500 mg tablet Take 500 mg by mouth. NOT STARTED YET fluticasone-salmeterol (ADVAIR DISKUS) 100-50 mcg/dose inhaler 1 Puff. LORazepam (ATIVAN) 0.5 mg 1 tablet Orally Twice a day prn F41.1 MAGNESIUM ORAL Take by mouth. cholecalciferol, vitamin D3, (VITAMIN D3 ORAL) Take by mouth. TURMERIC ORAL Take by mouth. MULTIVITAMIN ORAL Take by mouth. clobetasol (TEMOVATE) 0.05 % ointment Apply to affected area as needed (flare up). fexofenadine HCl (TITA ORAL) Take by mouth. citalopram (CELEXA) 20 mg tablet fluticasone (FLOVENT HFA) 110 mcg/actuation inhaler Inhale 2 Puffs as instructed twice daily. 1 Inhaler 5 albuterol HFA (PROAIR HFA) 90 mcg/actuation inhaler Inhale 2 Puffs as instructed every 4 hours as needed. 1 Inhaler 0 prochlorperazine (COMPAZINE) 10 mg tablet Take 1 tablet by mouth every 6 hours as needed for nausea/vomiting (nausea). 30 tablet 1 montelukast (SINGULAIR) 10 mg tablet Take 1 tablet by mouth daily at bedtime. 30 tablet 0 No current facility-administered medications for this visit. ALLERGIES: Seldane and Suprax [Cefixime] PERSONAL HISTORY: SOCIAL HISTORY[1] FAMILY HISTORY: FAMILY HISTORY Problem Relation Age of Onset Diabetes Mother type 2 Alcohol/Drug Sister REVIEW OF SYMPTOMS: GENERAL: denies fevers or chills ENDOCRINOLOGY: has not been on steroids Cardiology : denies palpitations or chest pain Respiratory: denies SOB or cough Hematology: denies history of prolonged bleeding or easy bruising or VTE Allergy: Denies history of personal or family history of allergy to anesthesia PHYSICAL EXAMINATION: VITALS: Blood pressure 136/84, weight 116.8 kg (257 lb 6.4 oz), last menstrual period 02/04/2024. GENERAL: The patient is well nourished, well hydrated in no acute distress. , The patient is oriented to time, place, and person. NECK: Supple. No lynphadenopathy, normal thyroid, no thyromegaly. LUNGS: Clear to auscultation bilaterally. no wheezes, rhonchi or rales HEART: Regular rate and rhythm, Normal heart sounds, and No murmurs or gallops Pelvic US on 03/22/25: Uterus: -Size: 11 x 6.4 x 7.4 cm -Orientation: Anteverted -Endometrial echo complex: Evaluation of the endometrium was adequate. No endometrial abnormality. The endometrial echo complex measured 1.1 cm. Also seen is blood clot/material in the endometrial canal. -Cervix: Unremarkable. -Adenomyosis assessment: Heterogeneous myometrium. -Fibroids: A few fibroids identified, with the largest one in the fundus measuring 3.1 x 2.7 x 3.1 cm. Right Ovary: Nonvisualized. Left Ovary: Not visualized. IMPRESSION: menorrhagia w/ irreg cyclce, intramural fibroids, dysmenorrhea, post-endometrial ablation syndrome PLAN: The risks/benefits/alternatives and personal involved for the planned TLH, bilateral salpingectomy and cystoscopy were reviewed with the patient. Her questions were answered to her satisfaction and she desires to proceed. Consent was signed. I reviewed with her postop instructions and expectations. I have reviewed and updated past medical and surgical history, medications and allergies Barber Potts M.D. [1] Social History Tobacco Use Smoking status: Never Smokeless tobacco: Never Vaping Use Vaping status: Never Used Substance Use Topics Alcohol use: No Drug use: No documented in this encounter [facility] 04-02-2025 History of Presen t illness Narrative Images from the original note were not included. Obstetrics and Gynecology [place] [facility] [facility] Visit Subjective Recording using ambient [employer] software for draft documentation of the visit was discussed with the patient/authorized claims service representative; all questions welcomed and answered. Patient/authorized claims service representative agreed to proceed CHIEF COMPLAINT: The patient is a 44-year-old female with a history of endometrial ablation presenting for severe menstrual cramps and abnormal bleeding. HPI: Menstrual Irregularities - Underwent endometrial ablation in March of last year. - Reports progressively worsening cramps during her cycle, similar to pre-ablation, with severe pain incapacitating for at least 2 days each month. - Pain radiates to back, causes severe nausea and vomiting, and is unrelieved by 800 mg ibuprofen or a heating pad. - Experiences tenderness even after the acute phase, lasting about a week and a half. - Recently experienced a sudden gush of blood, described as dripping down my legs, which was a new and alarming symptom. - Has tried various hormonal treatments, including Kyleena IUD and oral contraceptives, without relief. - No fevers, chills, or abnormal vaginal discharge reported. - Occasional bowel changes during episodes of severe pain. Past Diagnostic Results: - Ultrasound (Tuesday): Revealed a few fibroids. 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 Obesity, unspecified Other and unspecified ovarian cyst Unspecified asthma(493.90) PAST SURGICAL HISTORY Procedure Laterality Date COLONOSCOPY SCREENING 01/2024 every 10 year EGD W/O BRSH SPEC VARICIES INJ 01/2024 EXTRACTION ERUPTED TOOTH/EXR FIBROSCAN 02/2024 liver HYSTEROSCOPY REMOVAL LEIOMYOMATA 04/05/2024 and Breana endometrial ablation IUD REMOVAL/INSERTION PROCEDURE (W NOTE) removed 2021 approx MYRINGOTOMY ASPIR&/EUSTACHIAN TUBE NFLTJ ANES Myringotomy/tubes FAMILY HISTORY Problem Relation Age of Onset Diabetes Mother type 2 Alcohol/Drug Sister SOCIAL HISTORY[1] Current Outpatient Medications Medication Sig naproxen (NAPROSYN) 500 mg tablet Take 500 mg by mouth two times a day with meals. (Patient taking differently: Take 500 mg by mouth as needed for pain.) methocarbamol (ROBAXIN) 750 mg tablet Take 1 tablet by mouth three times a day as needed (cramping or muscle spasms). ondansetron (ZOFRAN) 4 mg tablet Take 1 tablet by mouth every 8 hours as needed for nausea/vomiting. metFORMIN (GLUCOPHAGE) 500 mg tablet Take 500 mg by mouth. NOT STARTED YET fluticasone-salmeterol (ADVAIR DISKUS) 100-50 mcg/dose inhaler 1 Puff. LORazepam (ATIVAN) 0.5 mg 1 tablet Orally Twice a day prn F41.1 MAGNESIUM ORAL Take by mouth. cholecalciferol, vitamin D3, (VITAMIN D3 ORAL) Take by mouth. TURMERIC ORAL Take by mouth. MULTIVITAMIN ORAL Take by mouth. clobetasol (TEMOVATE) 0.05 % ointment Apply to affected area as needed (flare up). fexofenadine HCl (TITA ORAL) Take by mouth. citalopram (CELEXA) 20 mg tablet fluticasone (FLOVENT HFA) 110 mcg/actuation inhaler Inhale 2 Puffs as instructed twice daily. albuterol HFA (PROAIR HFA) 90 mcg/actuation inhaler Inhale 2 Puffs as instructed every 4 hours as needed. prochlorperazine (COMPAZINE) 10 mg tablet Take 1 tablet by mouth every 6 hours as needed for nausea/vomiting (nausea). montelukast (SINGULAIR) 10 mg tablet Take 1 tablet by mouth daily at bedtime. No current facility-administered medications for this visit. ALLERGIES Allergen Reactions Seldane Rash Suprax [Cefixime] Rash REVIEW OF SYSTEMS: Constitutional: (-) fever, (-) chills Gastrointestinal: (+) abdominal cramping, (+) nausea, (+) vomiting Genitourinary: (+) heavy vaginal bleeding, (+) pelvic pain, (+) pelvic tenderness, (-) abnormal vaginal discharge, (-) vaginal pruritus, (-) vaginal burning, (-) strong vaginal odor Musculoskeletal: (+) back pain Skin: (+) abdominal laceration Neurological: (+) headache Objective SENSITIVE EXAM: The sensitive examination was discussed with the Patient or Patient's Authorized Packaging Technician. As applicable, any other physician, advance practice provider, medical student, or other health professional student that will be observing or involved in the sensitive examination for educational or training purposes was discussed with the Patient or Authorized Packaging Technician. The Patient or Authorized Packaging Technician has agreed to proceed with the sensitive examination. (Sensitive examination includes inspection and/or palpation of the breasts, pelvis, prostate and anorectal regions). PHYSICAL EXAM: BP 136/84 Wt 257 lb 6.4 oz (116.8kg) LMP 02/04/2024 GENERAL: Pleasant; in no apparent distress PULMONARY: normal inspiratory effort ABDOMEN: soft, non-tender, no masses : - PELVIC: external genitalia normal, normal Bartholin's glands, urethra, Clements's glands, no vulvar lesions, no cervical lesions, good vaginal support, physiologic discharge present, normal appearing perineal body and perianal region - BIMANUAL: uterus is slightly enlarged (approximately 20-50% larger than normal) with tenderness on palpation, no adnexal masses - Patient consent for exam received NEURO: alert and oriented x3 EXTREMITIES: normal Assessment & Plan ASSESSMENT AND PLAN: 1. Dysmenorrhea (N94.6) 2. Menorrhagia with irregular cycle (N92.1) 3. 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 Intramural leiomyoma of uterus (D25.1) - Worsening dysmenorrhea and menorrhagia since endometrial ablation in March last year; symptoms include severe cramping, nausea, vomiting, and back pain lasting 7-10 days per cycle, with 2 days of incapacitating pain. - Recent episode of heavy vaginal bleeding and severe cramping last week. - Prior endometrial ablation in March last year; ER visit in April last year showed no fluid or blood buildup in the uterus. - Recent ultrasound revealed a few fibroids; uterus is slightly enlarged (11 x 6 x 7 cm). - Likely post-endometrial ablation syndrome causing severe cramping and irregular bleeding. - Discussed treatment options: hormonal therapy to stop bleeding or hysterectomy. - Patient has tried multiple hormonal therapies, including IUD and oral contraceptives, without relief. - Discussed hysterectomy options: laparoscopic hysterectomy with removal of uterus, cervix, and fallopian tubes, preserving ovaries. - Explained benefits of removing fallopian tubes (reduced ovarian cancer risk) and cervix (reduced cervical cancer risk); discussed risks of surgical menopause if ovaries are removed. - Reviewed surgical procedure, including minimally invasive approach, expected operative time (2 hours), and recovery process. - Advised no heavy lifting, vaginal intercourse, swimming, or tub baths for 6 weeks post-op; may return to work in 2-3 weeks if job is not physically demanding. - Provided pain management plan: Motrin and Tylenol regularly, with a few oxycodone for nighttime use. - Discussed potential surgery dates: April 18 or April 26 at [facility] Does not desire future child bearing. Barber Potts MD [1] Social History Tobacco Use Smoking status: Never Smokeless tobacco: Never Vaping Use Vaping status: Never Used Substance Use Topics Alcohol use: No Drug use: No Patient declined adult probation officer. documented in this encounter [facility] 04-02-2025 Instructions Barber Potts MD - 04/02/2025 2:07 AM EDT - Diagnosis: post-endometrial ablation syndrome with uterine fibroids - Laparoscopic hysterectomy (removal of uterus, cervix, and fallopian tubes, preserving ovaries) scheduled for April [facility] at [facility] - Take ibuprofen (Motrin) and acetaminophen (Tylenol) regularly after surgery to keep pain at a mild level (around 3-4/10) - Use the oxycodone tablets sent home with you primarily at night for breakthrough pain as needed; prescription has been sent to your pharmacy - Shower starting the day after surgery; avoid tub baths, swimming pools, and hot tubs for 6 weeks - Do not lift heavy objects, bend deeply, or squat for 6 weeks - Avoid inserting anything into the vagina (tampons, intercourse) for 6 weeks - Apply heat or ice to your abdomen as needed for comfort - Support your lower abdomen with a small pillow or folded blanket when coughing, laughing, or moving - Plan to take 3 weeks off work; if your job is mostly sitting, you may return after 2 weeks if you feel ready; delay return to heavy lifting tasks until 6 weeks post-op documented in this encounter [facility] 03-25-2025 Note HNO ID: [id number] Author: ALEXIS RHOADES LPN Service: ? Author Type: LICENSED NURSE Type: Progress Notes Filed: 04/02/2025 02:11 Note Text: Patient declined adult probation officer. [facility] 03-22-2025 History of Presen t illness Narrative Radiology Service Progress Note PATIENT NAME: Maryse Logan DATE OF SERVICE: March 22, 2025 TIME: 2:59 PM PATIENT IDENTITY VERIFICATION COMPLETED USING TWO (2) IDENTIFIERS: Name and Date of confirmed by patient verbally. FALL SCREENING: Has the patient had 2 falls in the last year or 1 fall with injury or currently using an Ambulatory Assistive Device (Walker, Cane, Wheelchair, Crutches, etc.)? No PATIENT GENDER DATA: Assigned female at . status: : No status: NO. PATIENT RELEVANT IMPLANT DATA REVIEWED: Not Applicable PATIENT PRESENTS WITH AN IMPLANTABLE OR ATTACHED APPRAISER BOATS AND MARINE: No RADIOLOGY DEPARTMENT: Ultrasound PERIPHERAL IV DATA: Not applicable SIGNED BY: Kathrin Li RDMS RVT March 22, 2025 2:59 PM documented in this encounter [facility] 03-22-2025 Note HNO ID: [id number] Author: KATHRIN LI RDMS Service: ? Author Type: Assistant Professor Nurse Education Type: Progress Notes Filed: 03/22/2025 15:00 Note Text: Radiology Service Progress Note PATIENT NAME: Maryse Logan DATE OF SERVICE: March 22, 2025 TIME: 2:59 PM PATIENT IDENTITY VERIFICATION COMPLETED USING TWO (2) IDENTIFIERS: Name and Date of confirmed by patient verbally. FALL SCREENING: Has the patient had 2 falls in the last year or 1 fall with injury or currently using an Ambulatory Assistive Device (Walker, Cane, Wheelchair, Crutches, etc.)? No PATIENT GENDER DATA: Assigned female at . status: : No status: NO. PATIENT RELEVANT IMPLANT DATA REVIEWED: Not Applicable PATIENT PRESENTS WITH AN IMPLANTABLE OR ATTACHED APPRAISER BOATS AND MARINE: No RADIOLOGY DEPARTMENT: Ultrasound PERIPHERAL IV DATA: Not applicable SIGNED BY: Kathrin Li RDMS RVT March 22, 2025 2:59 PM [facility] 03-20-2025 Telephone encounter Note Patient calling regarding has been having pelvic pain, tonight felt a gush and had vaginal bleeding, states no noticeable bleeding at this time. . Conferenced to OB Answering Service [([phone])] to speak with provider equipment validation engineer for Dr. Barber Potts While waiting to speak to the Provider on-call, if you develop ANY new symptoms, if your condition worsens, or if you are concerned or anxious about your condition for any reason, go to the Emergency Room or call 911. . [facility] 03-20-2025 Miscellaneous Notes Patient calling regarding has been having pelvic pain, tonight felt a gush and had vaginal bleeding, states no noticeable bleeding at this time. . Conferenced to OB Answering Service [([phone])] to speak with provider equipment validation engineer for Dr. Barber Potts While waiting to speak to the Provider on-call, if you develop ANY new symptoms, if your condition worsens, or if you are concerned or anxious about your condition for any reason, go to the Emergency Room or call 911. . documented in this encounter [facility] 03-20-2025 Telephone encounter Note Patient notified and appointments scheduled. Kelly Yarbrough RN [facility] 03-20-2025 Miscellaneous Notes Patient notified and appointments scheduled. Kelly Yarbrough RN rx for nausea. I am planning on working in office on Tuesday from 05-23. Would be happy to see patient then. Radiology order in as well. Barber Potts MD Patient called the office. Notified. Asking for medication for nausea. States she is vomiting because of the pain. Patient voiced her frustration regarding the pain. Advised that if her pain is severe she can go to ER. Patient may go to [facility], [place] or [place] so that she stays within the [facility] system. First available pelvic US is 04/02. Offered to transfer her to a PSS who can check other [facility] locations for a sooner appointment. Patient will call the office after speaking with her . Johana Braswell RN I am sorry to hear this. Rx sent for muscle relaxer as no openings this week. Alternate tylenol and ibuprofen and use heat prn. Get US. F/u after. If fever or other concern notify office. Barber L Josemanuel, MD Patient had a Breana ablation 03/2024 and called c/o cramping pain rated a 8 out of 10 that is making pt. Nauseated. Pt. Reports vomiting once. Pt. states pain has been getting progressively gotten worse since the ablation and during menses each months she will have spotting w/ intense cramping for a few days then pelvic area is sensitive for a week after menses is over. Pt. has tried taking 800 mg of ibuprofen with no relief of the cramping. No openings this week. Please advise documented in this encounter [facility] 03-20-2025 Telephone encounter Note rx for nausea. I am planning on working in office on Tuesday from 05-23. Would be happy to see patient then. Radiology order in as well. Barber Potts MD [facility] 03-20-2025 Telephone encounter Note Patient called the office. Notified. Asking for medication for nausea. States she is vomiting because of the pain. Patient voiced her frustration regarding the pain. Advised that if her pain is severe she can go to ER. Patient may go to [facility], [place] or [place] so that she stays within the [facility] system. First available pelvic US is 04/02. Offered to transfer her to a PSS who can check other [facility] locations for a sooner appointment. Patient will call the office after speaking with her . Johana Braswell RN [facility] 03-20-2025 Telephone encounter Note I am sorry to hear this. Rx sent for muscle relaxer as no openings this week. Alternate tylenol and ibuprofen and use heat prn. Get US. F/u after. If fever or other concern notify office. Barber Potts MD [facility] 03-20-2025 Telephone encounter Note Patient had a Breana ablation 03/2024 and called c/o cramping pain rated a 8 out of 10 that is making pt. Nauseated. Pt. Reports vomiting once. Pt. states pain has been getting progressively gotten worse since the ablation and during menses each months she will have spotting w/ intense cramping for a few days then pelvic area is sensitive for a week after menses is over. Pt. has tried taking 800 mg of ibuprofen with no relief of the cramping. No openings this week. Please advise [facility] 02-27-2025 Radiology Diagnostic study note [facility] Imaging Services [address] [place] [address] Breast Limited Unilateral MR#: [id number] Acct: [id number] Name: MARYSE LOGAN Rep #: [id number] From: Sharee Jovel MD PCP: Dr. Johana Estrella, Status: R EG CLI Study:Breast Limited Unilateral Date of Exam: 02/26/25 Exam# [id number] Ordering Dr: Johana Estrella DO PROCEDURE: BREAST LIMITED UNILATERAL 02/26/2025 REASON FOR EXAM: 44-year-old female presents for follow-up examination for the left breast finding seen on the mammogram 02/14/2025. COMPARISON: Mammogram 02/26/2025, 02/14/2025 and 02/05/2022. TECHNIQUE: BREAST LIMITED UNILATERAL FINDINGS: Ultrasound performed of the retroareolar and lower inner left breast demonstrateno suspicious sonographic findings. There is no solid mass or abnormal cystic elements. US/Breast Limited Unilateral IMPRESSION: There is no evidence of malignancy. BI-RADS 1: NEGATIVE. RECOMMEND ANNUAL MAMMOGRAPHIC SCREENING. RECOMMENDATION: Routine annual follow-up in 1 Year Reading Location: [id number] CC: Dr. Johana Estrella, DO ~ Waiter/Waitress Take Out: Signed [facility] 09-06-2024 Note HNO ID: [id number] Author: KATHRIN PRITCHETT APRN.HARPREET Service: ? Author Type: Nurse Practitioner Type: Progress Notes Filed: 09/06/2024 10:30 Note Text: This note was created using NoteWriter. Subjective Maryse Logan is a 43 year old adult. 43 year old female with PMH asthma presents for illness. Acute onset yesterday +sore throat +congestion +headache +ear pain +chills +fatigue Denies fever Denies cough Denies SOB or dyspnea Denies abdominal pain Denies N/V/D Has used Sudafed Denies tobacco usage Had COVID 2 weeks ago The history is provided by the patient. No translator interpreter was used. URI He complains of cough. There is no chest tightness, difficulty breathing, frequent throat clearing, hemoptysis, hoarse voice, shortness of breath, sputum production or wheezing. This is a new problem. The current episode started yesterday. The problem occurs constantly. The problem has been unchanged. The cough is non-productive. Associated symptoms include ear congestion, ear pain, headaches, nasal congestion, rhinorrhea, sneezing and a sore throat. Pertinent negatives include no appetite change, chest pain, dyspnea on exertion, fever, heartburn, malaise/fatigue, myalgias, orthopnea, PND, postnasal drip, sweats, trouble swallowing or weight loss. His symptoms are aggravated by nothing. His symptoms are alleviated by nothing. He reports no improvement on treatment. There are no known risk factors for lung disease. His past medical history is significant for asthma. There is no history of bronchiectasis, bronchitis, COPD, emphysema or pneumonia. PAST MEDICAL HISTORY Diagnosis Date Attention deficit disorder without mention of hyperactivity Obesity, unspecified Other and unspecified ovarian cyst Unspecified asthma(493.90) PAST SURGICAL HISTORY Procedure Laterality Date COLONOSCOPY SCREENING 01/2024 every 10 year EGD W/O [facility] SPEC VARICIES INJ 01/2024 EXTRACTION ERUPTED TOOTH/EXR FIBROSCAN 02/2024 liver HYSTEROSCOPY REMOVAL LEIOMYOMATA 04/05/2024 and Breana endometrial ablation IUD REMOVAL/INSERTION PROCEDURE (W NOTE) removed 2021 approx MYRINGOTOMY ASPIRAND/EUSTACHIAN TUBE NFLTJ ANES Myringotomy/tubes ALLERGIES Seldane and Suprax [Cefixime] MEDICATIONS amoxicillin (AMOXIL) 875 mg tablet Take 1 tablet by mouth two times a day for 7 days. metFORMIN (GLUCOPHAGE) 500 mg tablet Take 500 mg by mouth. NOT STARTED YET fluticasone-salmeterol (ADVAIR DISKUS) 100-50 mcg/dose inhaler 1 Puff. LORazepam (ATIVAN) 0.5 mg 1 tablet Orally Twice a day prn F41.1 MAGNESIUM ORAL Take by mouth. cholecalciferol, vitamin D3, (VITAMIN D3 ORAL) Take by mouth. TURMERIC ORAL Take by mouth. MULTIVITAMIN ORAL Take by mouth. clobetasol (TEMOVATE) 0.05 % ointment Apply to affected area as needed (flare up). fexofenadine HCl (TITA ORAL) Take by mouth. citalopram (CELEXA) 20 mg tablet montelukast (SINGULAIR) 10 mg tablet Take 1 tablet by mouth daily at bedtime. fluticasone (FLOVENT HFA) 110 mcg/actuation inhaler Inhale 2 Puffs as instructed twice daily. albuterol HFA (PROAIR HFA) 90 mcg/actuation inhaler Inhale 2 Puffs as instructed every 4 hours as needed. FAMILY HISTORY Problem Relation Age of Onset Diabetes Mother type 2 Alcohol/Drug Sister Social History Tobacco Use Smoking status: Never Smokeless tobacco: Never Vaping Use Vaping status: Never Used Substance Use Topics Alcohol use: No Drug use: No Review of Systems Constitutional: Positive for fatigue. Negative for appetite change, fever, malaise/fatigue and weight loss. HENT: Positive for ear pain, rhinorrhea, sneezing and sore throat. Negative for congestion, hoarse voice, postnasal drip and trouble swallowing. Eyes: Negative for pain, discharge and itching. Respiratory: Positive for cough. Negative for apnea, hemoptysis, sputum production, chest tightness, shortness of breath and wheezing. Cardiovascular: Negative for chest pain, dyspnea on exertion and PND. Gastrointestinal: Negative for abdominal pain, diarrhea, heartburn, nausea and vomiting. Musculoskeletal: Negative for arthralgias, back pain, gait problem and myalgias. Skin: Negative for color change, pallor, rash and wound. Allergic/Immunologic: Negative for environmental allergies, food allergies and immunocompromised state. Neurological: Positive for headaches. Negative for dizziness, facial asymmetry and light-headedness. Hematological: Positive for adenopathy. Does not bruise/bleed easily. Psychiatric/Behavioral: Negative for agitation and behavioral problems. Objective BP 133/91 Pulse 116 Temp 36.6 ?C (97.8 ?F) Resp 18 Wt 113.5 kg (250 lb 3.6 oz) LMP 02/04/2024 SpO2 98% BMI 44.32 kg/m? Physical Exam Vitals and nursing note reviewed. Constitutional: General: He is not in acute distress. Appearance: Normal appearance. He is normal weight. He is not ill-appearing, toxic-alan (more content not included)... [facility] 09-06-2024 History of Presen t illness Narrative This note was created using [employer] Systems[employer]. Subjective Maryse Logan is a 43 year old adult. 43 year old female with PMH asthma presents for illness. Acute onset yesterday +sore throat +congestion +headache +ear pain +chills +fatigue Denies fever Denies cough Denies SOB or dyspnea Denies abdominal pain Denies N/V/D Has used Sudafed Denies tobacco usage Had COVID 2 weeks ago The history is provided by the patient. No translator interpreter was used. URI He complains of cough. There is no chest tightness, difficulty breathing, frequent throat clearing, hemoptysis, hoarse voice, shortness of breath, sputum production or wheezing. This is a new problem. The current episode started yesterday. The problem occurs constantly. The problem has been unchanged. The cough is non-productive. Associated symptoms include ear congestion, ear pain, headaches, nasal congestion, rhinorrhea, sneezing and a sore throat. Pertinent negatives include no appetite change, chest pain, dyspnea on exertion, fever, heartburn, malaise/fatigue, myalgias, orthopnea, PND, postnasal drip, sweats, trouble swallowing or weight loss. His symptoms are aggravated by nothing. His symptoms are alleviated by nothing. He reports no improvement on treatment. There are no known risk factors for lung disease. His past medical history is significant for asthma. There is no history of bronchiectasis, bronchitis, COPD, emphysema or pneumonia. PAST MEDICAL HISTORY Diagnosis Date Attention deficit disorder without mention of hyperactivity Obesity, unspecified Other and unspecified ovarian cyst Unspecified asthma(493.90) PAST SURGICAL HISTORY Procedure Laterality Date COLONOSCOPY SCREENING 01/2024 every 10 year EGD W/O [facility] SPEC VARICIES INJ 01/2024 EXTRACTION ERUPTED TOOTH/EXR FIBROSCAN 02/2024 liver HYSTEROSCOPY REMOVAL LEIOMYOMATA 04/05/2024 and Breana endometrial ablation IUD REMOVAL/INSERTION PROCEDURE (W NOTE) removed 2021 approx MYRINGOTOMY ASPIR&/EUSTACHIAN TUBE NFLTJ ANES Myringotomy/tubes ALLERGIES Seldane and Suprax [Cefixime] MEDICATIONS amoxicillin (AMOXIL) 875 mg tablet Take 1 tablet by mouth two times a day for 7 days. metFORMIN (GLUCOPHAGE) 500 mg tablet Take 500 mg by mouth. NOT STARTED YET fluticasone-salmeterol (ADVAIR DISKUS) 100-50 mcg/dose inhaler 1 Puff. LORazepam (ATIVAN) 0.5 mg 1 tablet Orally Twice a day prn F41.1 MAGNESIUM ORAL Take by mouth. cholecalciferol, vitamin D3, (VITAMIN D3 ORAL) Take by mouth. TURMERIC ORAL Take by mouth. MULTIVITAMIN ORAL Take by mouth. clobetasol (TEMOVATE) 0.05 % ointment Apply to affected area as needed (flare up). fexofenadine HCl (TITA ORAL) Take by mouth. citalopram (CELEXA) 20 mg tablet montelukast (SINGULAIR) 10 mg tablet Take 1 tablet by mouth daily at bedtime. fluticasone (FLOVENT HFA) 110 mcg/actuation inhaler Inhale 2 Puffs as instructed twice daily. albuterol HFA (PROAIR HFA) 90 mcg/actuation inhaler Inhale 2 Puffs as instructed every 4 hours as needed. FAMILY HISTORY Problem Relation Age of Onset Diabetes Mother type 2 Alcohol/Drug Sister Social History Tobacco Use Smoking status: Never Smokeless tobacco: Never Vaping Use Vaping status: Never Used Substance Use Topics Alcohol use: No Drug use: No Review of Systems Constitutional: Positive for fatigue. Negative for appetite change, fever, malaise/fatigue and weight loss. HENT: Positive for ear pain, rhinorrhea, sneezing and sore throat. Negative for congestion, hoarse voice, postnasal drip and trouble swallowing. Eyes: Negative for pain, discharge and itching. Respiratory: Positive for cough. Negative for apnea, hemoptysis, sputum production, chest tightness, shortness of breath and wheezing. Cardiovascular: Negative for chest pain, dyspnea on exertion and PND. Gastrointestinal: Negative for abdominal pain, diarrhea, heartburn, nausea and vomiting. Musculoskeletal: Negative for arthralgias, back pain, gait problem and myalgias. Skin: Negative for color change, pallor, rash and wound. Allergic/Immunologic: Negative for environmental allergies, food allergies and immunocompromised state. Neurological: Positive for headaches. Negative for dizziness, facial asymmetry and light-headedness. Hematological: Positive for adenopathy. Does not bruise/bleed easily. Psychiatric/Behavioral: Negative for agitation and behavioral problems. Objective BP 133/91 Pulse 116 Temp 36.6 C (97.8 F) Resp 18 Wt 113.5 kg (250 lb 3.6 oz) LMP 02/04/2024 SpO2 98% BMI 44.32 kg/m Physical Exam Vitals and nursing note reviewed. Constitutional: General: He is not in acute distress. Appearance: Normal appearance. He is normal weight. He is not ill-appearing, toxic-appearing or diaphoretic. HENT: Head: Normocephalic and atraumatic. Right Ear: Ear canal and external ear normal. Left Ear: Ear canal and external ear normal. Ears: Comments: Right TM erythematous and bulging Nose: Congestion present. No rhinorrhea. Mouth/Throat: Mouth: Mucous membranes are moist. Pharynx: No oropharyngeal exudate or posterior oropharyngeal erythema. Eyes: General: Right eye: No discharge. Left eye: No discharge. Extraocular Movements: Extraocular movements intact. Conjunctiva/sclera: Conjunctivae normal. Pupils: Pupils are equal, round, and reactive to light. Cardiovascular: Rate and Rhythm: Normal rate and regular rhythm. Pulses: Normal pulses. Heart sounds: Normal heart sounds. No murmur heard. No friction rub. Pulmonary: Effort: Pulmonary effort is normal. No respiratory distress. Breath sounds: Normal breath sounds. No stridor. No wheezing, rhonchi or rales. Chest: Chest wall: No tenderness. Abdominal: General: Abdomen is flat. There is no distension. Palpations: Abdomen is soft. There is no mass. Tenderness: There is no abdominal tenderness. There is no right CVA tenderness, left CVA tenderness, guarding or rebound. Hernia: No hernia is present. Musculoskeletal: General: No swelling, tenderness, deformity or signs of injury. Normal range of motion. Cervical back: Normal range of motion and neck supple. No rigidity. Right lower leg: No edema. Left lower leg: No edema. Lymphadenopathy: Cervical: Cervical adenopathy present. Skin: General: Skin is warm and dry. Capillary Refill: Capillary refill takes less than 2 seconds. Coloration: Skin is not jaundiced or pale. Findings: No bruising, erythema, lesion or rash. Neurological: General: No focal deficit present. Mental Status: He is alert and oriented to person, place, and time. Cranial Nerves: No cranial nerve deficit. Sensory: No sensory deficit. Motor: No weakness. Coordination: Coordination normal. Gait: Gait normal. Psychiatric: Mood and Affect: Mood normal. Behavior: Behavior normal. Thought Content: Thought content normal. Judgment: Judgment normal. Assessment and Plan ASSESSMENT/PLAN: 1. URI, acute - ICD9: 465.9, ICD10: J06.9 (primary diagnosis) X 1 day Hemodynamically stable - Group A strep molecular testing negative - Symptomatic treatment with prn analgesia - Supportive care with fluids and rest - The patient may also use OTC cough and cold meds as needed, warm salt water gargles, throat lozenges and/or OTC throat spray as needed, and nasal saline gtts and suction prn. - Follow up in 3-5 days if symptoms persist or sooner if worsening of symptoms - STREP A MOLECULAR (POC) 2. Acute otitis media, right - ICD9: 382.9, ICD10: H66.91 - Will begin treatment with as per antibiotic as written, see orders - The patient should also be given OTC cough and cold meds as needed, warm salt water gargles, throat lozenges and/or OTC throat spray as needed, and nasal saline gtts and suction prn for the first 5-7 days of treatment. - Supportive care with plenty of fluids, rest, and analgesia prn. - Follow up in 3-5 days if symptoms persist or worsen. Kathrin Pritchett APRN.HARPREET documented in this encounter [facility] 08-10-[address] - 08/10/2024 11:24 AM EST Images from the original note were not included. [facility] FUNCTIONAL MEDICINE FOLLOW UP NUTRITION INSTRUCTIONS We recommend scheduling your follow-up appointment at the end of your initial appointment. Nutrition Follow-up: In 4-6 weeks with Functional Medicine Registered Dietitian Your Prescribed Nutrition Plan: Cardiometabolic, Dairy Free Plan from the start. Access the Functional Nutrition Portal in [employer] to access your food plan comprehensive guide, weekly recipe event planner, and food list. Shop for foods and ingredients from the food list. Follow your initial nutrition prescription for 3-8 weeks Your Food Plan: CARDIOMETABOLIC Dairy Free The Cardiometabolic Food Plan is designed for those individuals with risk factors for cardiovascular disease, metabolic syndrome, type 2 diabetes, or both. It is also appropriate for those who currently have cardiovascular disease (eg. high blood pressure, high cholesterol and elevated blood fats), metabolic syndrome (eg. high blood sugar, increased belly fat) and Type 2 diabetes. Food Plan Principles Modified Mediterranean Approach Low Glycemic Impact Balances Blood Sugar High in Fiber Minimize Simple Sugars Consume Balanced Quality Fats Consume Condition-Specific Phytonutrients Please see your Food Plan Comprehensive Guide for more information. Include Avoid Fruits Healthy oils Lean meats Legumes Nuts Seeds Vegetables Non-starchy vegetables. Added sugars High-intensity sweeteners can lead to blood sugar imbalances, increased calories and subsequent weight gain, and continued cravings. The least desirable option is to use white table sugar and other processed forms of sweeteners. Artificial (synthetic) sweeteners should be completely avoided as these high-intensity sweeteners may have negative effects on metabolism and could spur food cravings. Artificial sweeteners that should be avoided include aspartame (NutraSweet ), sucralose (Splenda ), acesulfame-K (Kathy K, Sweet One, Sunett), and saccharin (Sweet N' Low ). Therapeutic foods to emphasize: Avocado Extra [place] Cornucopia Oil Olives Ground Flax Seed (especially fresh ground) Nuts, especially almonds and walnuts Whole, organic, Non-GMO soy - especially edamame, tempeh, tofu, miso, soy protein and soy nuts Fish, especially wild caught Greens, especially beet, hermes, dandelion, kale, mustard, turnip, hong konger chard, lettuce and spinach Onions Tomato Yogurt and Kefir, especially grass-fed Blueberries Pomegranate Barley Oats [place] Green Tea Recommended Daily Goals -Aim for 9-12oz weekly of low-mercury Lamoni-3 rich seafood -Choose lacto-fermented foods (I.e. refrigerated sauerkraut, kimchi, yogurt, kefir) daily -Incorporate 1-2 ounces mixed nuts daily, with focus on blue bolded nuts/seeds -Choose olive oil and avocado as primary fat sources -Organic whole food soy (tofu, tempeh, miso, edamame): consider daily consumption Your Food Plan Modifier: Modifier: Dairy-Free Please avoid all dairy-containing foods during your food plan. Dairy foods include any animal (cow, goat, sheep) milk products that occur naturally in foods. You may be sensitive to proteins (casein, caseinate, whey, lactoalbumin, lactoglobulin) or lactose in dairy. Since dairy has been identified as a top food allergen, it is indicated on the product label if present. The following list includes foods that contain dairy: Butter Cheese- all types Cottage cheese Cream Curds Custards Dairy Creamer Ghee Half & Half Ice Cream Milk- non fat, fat free, low fat, skim, whole Nougat Pudding Sherbert Sour Cream Yogurt, Yogurt Powder Whey - all forms of whey Many other prepared foods may contain dairy. Some of the most common foods are: Chocolate Vegan cheeses (if it contains casein) Non-dairy creamers Margarine Mayonnaise Artificial butter, butter flavor Meal planning guidelines: 20 grams of protein per meal (use the 'nuñez' under proteins, beans, legumes to estimate this amount) (minimum) 1-2 tablespoons healthy fats per meal (minimum) Whole food carbohydrates (starchy vegetables, fruits, gluten-free grains/pseudograins): begin with 3-4 servings per meal (use 'servings' on food plan to guide you); increase gradually if energy or blood sugar are running low. Beans/legumes can also 'double count' as carbohydrate and protein. 5-6 cups of non-starchy veggies throughout the day (any kind in any form) *This assumes three meals per day; adjust amounts if this is not your eating pattern. Tips for Success: 1. Plan from the start. Access the Functional Nutrition Portal in [employer] to access your food plan comprehensive guide, weekly recipe event planner, and food list. Shop for foods and ingredients from the food list. 2. Consume enough food to fuel your body. Pair protein (protein/legumes), healthy fat (oils/nuts & seeds) and whole food carbohydrates (starchy vegetable, fruit, grains as applicable) at each meal. Aim for 5-6 cups of non-starchy veggies throughout the day! 3. Balanced Blood Sugar is Nuñez. Remember to watch out for added refined sugars and artificial sweeteners. Instead, enjoy small amounts of natural sweeteners (honey, maple syrup, blackstrap molasses, date syrup, monkfruit, liquid stevia), up to about a tablespoon per day. 4. Reach out for support. You may notice that certain elements of the food plan are more challenging for you, or that you need to personalize your initial food plan further. If you could use additional guidance, please don't hesitate to reach out! 5. Remember to hydrate. Symptoms of dehydration can often be confused with hunger or cause low energy. Review your food plan for the best hydration options. How to Access [employer] Your Food Plan Resources: Accessing on [employer]v To access [employer], please visit: [email or web address] to create a new account. Step 1: Create Your Account: Complete the following noyola: username, password, email address, first name & last name. Click 'Create My New Account'. A message will display. Click continue. Step 2: Verify Your Account: Check your email for an email from [employer]. In the email, click the link provided to launch [employer] and complete registration. Note: some [employer] users may not receive the confirmation link. If you do not receive the link, please attempt sign-up with another email address, if possible. If you require manual registration to the [employer] site, please email with a request for manual C[employer] account creation. Step 3: Enroll in the 'Functional Nutrition Portal'. Once you have launched [employer], hover over the Find Learning tab, and click on the drop-down option 'Courses'. Search for the course Functional Nutrition Portal in the search field. In the search results, click the link to access the course. Step 4: Enter the Enrollment Nuñez Functional Nutrition (this is case sensitive and requires a space-please type this password exactly as shown in red). Step 5: To login after enrollment, visit [email or web address]. Login under 'Non-Employee Login' using the username and password from step #1. Step 6: If you receive an error message that you already have an account, please click 'forgotten your username of password?' to reset your password. Need Help? If you have difficulty accessing the portal, please email . ADDITIONAL INSTRUCTIONS: How to Contact Your Functional Medicine Team (Open M-F 8am-5pm): 1. Orthohub is the BEST form of communication to reach the Functional Medicine Team, see test results and request refills. Please allow 72 business hours for a response. 2. For nutrition related questions or concerns, iBuyitBettert message your physician and include Attn: Golden Field RD at the top of the message. Orthohub messaging is meant to support implementation of previously outlined nutrition care plans. In the interest of safe, effective and personalized care, you are asked to schedule a follow-up appointment if: It has been >6 months since your last nutrition appointment Your question requires reassessment or involves a new plan of care Your question concerns a new diagnosis, symptoms(s) and/or health concern Ordering Supplements: Supplements can be ordered from the [facility]'s Online Store: [email or web address] New patients to the Healthy Living Shop will need to enter the provider code [id number] documented in this encounter [facility] 08-10-2024 Note Education (MEDFMN) MARYSE LOGAN ([id number]) 1980 M Date Time Provider Department 08/10/24 10:30 AM [facility] Reason for Visit: New Patient [[id number]] Primary Visit Diagnosis:Obesity, Class III, BMI >= 40 [E66.01] Other Visit Diagnoses:Family history of fatty liver [Z83.79] Abdominal bloating [R14.0] Dietary counseling and surveillance [Z71.3] During your visit today, we recorded the following information about you: Allergies As of Date: 08/10/2024 Noted Allergy Reaction SELDANE 12/19/2016 2 - Rash SUPRAX (CEFIXIME) 12/19/2016 2 - Rash Date Reviewed: 08/10/2024 Reviewed by: Fanta Lance MD - Fully Assessed Prescriptions as of 08/10/2024 - metFORMIN (GLUCOPHAGE) 500 mg tablet Take 500 mg by mouth. NOT STARTED YET - fluticasone-salmeterol (ADVAIR DISKUS) 100-50 mcg/dose inhaler 1 Puff. - LORazepam (ATIVAN) 0.5 mg 1 tablet Orally Twice a day prn F41.1 - MAGNESIUM ORAL Take by mouth. - cholecalciferol, vitamin D3, (VITAMIN D3 ORAL) Take by mouth. - TURMERIC ORAL Take by mouth. - MULTIVITAMIN ORAL Take by mouth. - clobetasol (TEMOVATE) 0.05 % ointment Apply to affected area as needed (flare up). - fexofenadine HCl (TITA ORAL) Take by mouth. - citalopram (CELEXA) 20 mg tablet - montelukast (SINGULAIR) 10 mg tablet Take 1 tablet by mouth daily at bedtime. - fluticasone (FLOVENT HFA) 110 mcg/actuation inhaler Inhale 2 Puffs as instructed twice daily. - albuterol HFA (PROAIR HFA) 90 mcg/actuation inhaler Inhale 2 Puffs as instructed every 4 hours as needed. Encounter Status:Closed by G[facility]EN FIELD on 08/10/24 [facility] 08-10-2024 Note HNO ID: [id number] Author: GOLDEN FIELD RD Service: ? Author Type: Registered Dietitian Type: Progress Notes Filed: 08/10/2024 11:24 Note Text: [facility] Functional Medicine Nutrition Therapy: Initial Assessment (Group) New Patient Shared Nutrition Appointment IN PERSON History adapted from referring provider's notes Class Topic: Introduction to Functional Nutrition and Implementation of Foundational Food Plan Patient Name: Maryse Logan Past Medical History: PAST MEDICAL HISTORY Diagnosis Date Attention deficit disorder without mention of hyperactivity Obesity, unspecified Other and unspecified ovarian cyst Unspecified asthma(493.90) Allergies: Seldane and Suprax [Cefixime] Current Medications/Supplements Current Outpatient Medications on File Prior to Visit Medication Sig metFORMIN (GLUCOPHAGE) 500 mg tablet Take 500 mg by mouth. NOT STARTED YET fluticasone-salmeterol (ADVAIR DISKUS) 100-50 mcg/dose inhaler 1 Puff. LORazepam (ATIVAN) 0.5 mg 1 tablet Orally Twice a day prn F41.1 MAGNESIUM ORAL Take by mouth. cholecalciferol, vitamin D3, (VITAMIN D3 ORAL) Take by mouth. TURMERIC ORAL Take by mouth. MULTIVITAMIN ORAL Take by mouth. clobetasol (TEMOVATE) 0.05 % ointment Apply to affected area as needed (flare up). fexofenadine HCl (TITA ORAL) Take by mouth. citalopram (CELEXA) 20 mg tablet montelukast (SINGULAIR) 10 mg tablet Take 1 tablet by mouth daily at bedtime. albuterol HFA (PROVENTIL HFA, VENTOLIN HFA) 90 mcg/actuation inhaler Inhale 2 Puffs as instructed every 4 hours as needed. (Patient not taking: Reported on 08/10/2024) fluticasone (FLOVENT HFA) 110 mcg/actuation inhaler Inhale 2 Puffs as instructed twice daily. albuterol HFA (PROAIR HFA) 90 mcg/actuation inhaler Inhale 2 Puffs as instructed every 4 hours as needed. No current facility-administered medications on file prior to visit. Primary ICD-10 Diagnosis Addressed: Obesity, Class III, BMI 40-49.9 (morbid obesity) (HCC) [E66.01] Provider Nutrition Notes: CARDIOMETABOLIC Dairy Free Chief Concerns: 1. Introduction to Food Plan Functional Medicine History (08/10/24 per provider's notes) The patient is a 43-year-old male presenting with concerns related to liver disease, obesity, and dietary management. The patient reports being diagnosed with liver disease in April following routine medical investigations that revealed fatty infiltration of the liver. Since this diagnosis, the patient has implemented significant dietary changes based on a recommendation from a colleague, resulting in substantial weight loss. Previously, the patient weighed nearly 280 lbs and now reports weighing 251 lbs. The patient attributes these changes to following dietary recommendations from the [employer] diet. The patient reports managing multiple health issues, including morbid obesity, asthma, poorly balanced diet, and essential fatty acid deficiency. There is also a family history of fatty liver disease. The patient's diet was previously unbalanced, often including fast food due to time constraints. The current dietary approach has mitigated symptoms associated with previous gut health issues, including GERD and abdominal bloating, which the patient experienced before. The patient highlights avoiding dairy as it now causes adverse reactions. The patient's medical background includes several psychosocial and stress-related factors. The patient has a history of asthma, anxiety, and alopecia, believed to be associated with a stressful job environment before changing to a less stressful occupation. Additionally, the patient acknowledges experiencing perimenopausal symptoms. The patient manages stress through bird-watching, enjoying movies, and spending time with grandchildren. Nutrition Assessment (08/10/24) Digestive symptoms: bloating (per provider note) Other relevant symptoms: see HPI above Food and Nutrition History (special diet(s) or nutritional program): Yes, per provider note - The patient resides with a spouse who is a pescetarian and follows a vegetarian diet with occasional seafood. - The patient is responsible for cooking meals at home and does not consume dairy as it induces vomiting. - Nutritional intake includes a variety of vegetables, seafood, and grains to accommodate the spouse's dietary preferences and personal decisions to avoid certain foods. - The patient has lost weight from approximately 280 lbs to 251 lbs through dietary changes, including adopting principles from the Pegan diet. Adverse Reactions to Foods: Yes, dairy induced vomiting (per provider note) Diet Recall: Yes, themes reviewed from M Provider notes - Breakfast: Scrambled or over-easy eggs, sourdough bread, fruit such as a banana. Sometimes oatmeal. - Lunch: Sometimes leftovers, occasional fast food twice a week like a Whopper sandwich or Chipotle. - Dinn (more content not included)... [facility] 08-10-2024 History of Presen t illness Narrative Images from the original note were not included. [facility] Nutrition Therapy: Initial Assessment (Group) New Patient Shared Nutrition Appointment IN PERSON History adapted from referring provider's notes Class Topic: Introduction to Functional Nutrition and Implementation of Foundational Food Plan Patient Name: Maryse Logan Past Medical History: PAST MEDICAL HISTORY Diagnosis Date Attention deficit disorder without mention of hyperactivity Obesity, unspecified Other and unspecified ovarian cyst Unspecified asthma(493.90) Allergies: Seldane and Suprax [Cefixime] Current Medications/Supplements Current Outpatient Medications on File Prior to Visit Medication Sig metFORMIN (GLUCOPHAGE) 500 mg tablet Take 500 mg by mouth. NOT STARTED YET fluticasone-salmeterol (ADVAIR DISKUS) 100-50 mcg/dose inhaler 1 Puff. LORazepam (ATIVAN) 0.5 mg 1 tablet Orally Twice a day prn F41.1 MAGNESIUM ORAL Take by mouth. cholecalciferol, vitamin D3, (VITAMIN D3 ORAL) Take by mouth. TURMERIC ORAL Take by mouth. MULTIVITAMIN ORAL Take by mouth. clobetasol (TEMOVATE) 0.05 % ointment Apply to affected area as needed (flare up). fexofenadine HCl (TITA ORAL) Take by mouth. citalopram (CELEXA) 20 mg tablet montelukast (SINGULAIR) 10 mg tablet Take 1 tablet by mouth daily at bedtime. albuterol HFA (PROVENTIL HFA, VENTOLIN HFA) 90 mcg/actuation inhaler Inhale 2 Puffs as instructed every 4 hours as needed. (Patient not taking: Reported on 08/10/2024) fluticasone (FLOVENT HFA) 110 mcg/actuation inhaler Inhale 2 Puffs as instructed twice daily. albuterol HFA (PROAIR HFA) 90 mcg/actuation inhaler Inhale 2 Puffs as instructed every 4 hours as needed. No current facility-administered medications on file prior to visit. Primary ICD-10 Diagnosis Addressed: Obesity, Class III, BMI 40-49.9 (morbid obesity) ([facility]) [E66.01] Provider Nutrition Notes: CARDIOMETABOLIC Dairy Free Chief Concerns: 1. Introduction to Food Plan Functional Medicine History (08/10/24 per provider's notes) The patient is a 43-year-old male presenting with concerns related to liver disease, obesity, and dietary management. The patient reports being diagnosed with liver disease in April following routine medical investigations that revealed fatty infiltration of the liver. Since this diagnosis, the patient has implemented significant dietary changes based on a recommendation from a colleague, resulting in substantial weight loss. Previously, the patient weighed nearly 280 lbs and now reports weighing 251 lbs. The patient attributes these changes to following dietary recommendations from the Pegan diet. The patient reports managing multiple health issues, including morbid obesity, asthma, poorly balanced diet, and essential fatty acid deficiency. There is also a family history of fatty liver disease. The patient's diet was previously unbalanced, often including fast food due to time constraints. The current dietary approach has mitigated symptoms associated with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 Federal rules restrict any use of the information to criminally investigate or prosecute any alcohol or drug abuse patient.[facility] HospitalIn the event this information is protected by the Federal Confidentiality of Alcohol and Drug Abuse Patient Records regulations: The Federal rules restrict any use of the information to criminally investigate or prosecute any alcohol or drug abuse patient.[facility] HospitalIn the event this information is protected by the Federal Confidentiality of Alcohol and Drug Abuse Patient Records regulations: The Federal rules restrict any use of the information to criminally investigate or prosecute any alcohol or drug abuse patient.[facility] HospitalIn the event this information is protected by the Federal Confidentiality of Alcohol and Drug Abuse Patient Records regulations: The Federal rules restrict any use of the information to criminally investigate or prosecute any alcohol or drug abuse patient.[facility] HospitalIn the event this information is protected by the Federal Confidentiality of Alcohol and Drug Abuse Patient Records regulations: The Federal rules restrict any use of the information to criminally investigate or prosecute any alcohol or drug abuse patient.[facility] HospitalIn the event this information is protected by the Federal Confidentiality of Alcohol and Drug Abuse Patient Records regulations: The Federal rules restrict any use of the information to criminally investigate or prosecute any alcohol or drug abuse patient.[facility] HospitalIn the event this information is protected by the Federal Confidentiality of Alcohol and Drug Abuse Patient Records regulations: The Federal rules restrict any use of the information to criminally investigate or prosecute any alcohol or drug abuse patient.[facility] HospitalIn the event this information is protected by the Federal Confidentiality of Alcohol and Drug Abuse Patient Records regulations: The Federal rules restrict any use of the information to criminally investigate or prosecute any alcohol or drug abuse patient.[facility] HospitalIn the event this information is protected by the Federal Confidentiality of Alcohol and Drug Abuse Patient Records regulations: The Federal rules restrict any use of the information to criminally investigate or prosecute any alcohol or drug abuse patient.[facility] HospitalIn the event this information is protected by the Federal Confidentiality of Alcohol and Drug Abuse Patient Records regulations: The Federal rules restrict any use of the information to criminally investigate or prosecute any alcohol or drug abuse patient.[facility] HospitalIn the event this information is protected by the Federal Confidentiality of Alcohol and Drug Abuse Patient Records regulations: The Federal rules restrict any use of the information to criminally investigate or prosecute any alcohol or drug abuse patient.[facility] HospitalIn the event this information is protected by the Federal Confidentiality of Alcohol and Drug Abuse Patient Records regulations: The Federal rules restrict any use of the information to criminally investigate or prosecute any alcohol or drug abuse patient.[facility] the event this information is protected by the Federal Confidentiality of Alcohol and Drug Abuse Patient Records regulations: The Federal rules restrict any use of the information to criminally investigate or prosecute any alcohol or drug abuse patient.[facility] Reason for Visit (unrecogniz ed section and content) Reason Comments Chest Congestion cough, wheezing and sob x 1 week Reason Comments Results Reason Comments Cough Cough, chest congest ion, SCHREIBER and SOB x 3-4 days Reason Comments Cough Cough, congestion SCHREIBER and ST x 2-3 days Reason Comments Abdominal Pain Reason Comments Follow Up Reason Comments New Patient Referred here. Liver disease, weight issues. Reason Comments New Patient Reason Comments Head Congestion ST, R ear pain, eliot estion x1 day Reason Comments Pelvic Pain Reason Comments Clinical Update Reason Comments Radiology US Specialty Diagnoses / Procedures Referred By Alex t Referred To Contact US IMAGING Diagnoses Pelvic pain Procedures US FEMALE PELVIS TRANSVAG US TRANSVAGINAL Barber Potts MD [address] [place] [address] Phone: tel: fax: [place] [phone] Referral ID Status Reason Start Date Expiration Date V isits Requested Visits Authorized [id number] Closed Auto-Generate d Referral 03/20/2025 04/19/2026 1 1 Care Teams (unrecognized sec tion and content) Evening Anchor Relationship Specialty Start Date End Date Johana Herrera MD PCP - General Family Medicine 11/25/14 Evening Anchor Relationship Specialty Start Date End Date Johana Herrera MD PCP - General Family Medicine 11/25/14 Evening Anchor Relationship Specialty Start Date End Date Johana Herrera MD PCP - General Family Medicine 11/25/14 Evening Anchor Relationship Specialty Start Date End Date Johana Herrera MD PCP - General Family Medicine 11/25/14 Evening Anchor Relationship Specialty Start Date End Date Johana Herrera MD PCP - General Family Medicine 11/25/14 Evening Anchor Relationship Specialty Start Date End Date Johana Herrera [address] [place] [id number] PCP - General 12/01/20 Evening Anchor Relationship Specialty Start Date End Date Johana Herrera MD PCP - General Family Medicine 11/25/14 Evening Anchor Relationship Specialty Start Date End Date Johana Herrera MD PCP - General Family Medicine 11/25/14 Evening Anchor Relationship Specialty Start Date End Date Johana Herrera MD PCP - General Family Medicine 11/25/14 Evening Anchor Relationship Specialty Start Date End Date Johana Herrera MD PCP - General Family Medicine 11/25/14 Team Status: Active Member Role/Relationship Status Dates Dr. Johana Estrella DO Primary Care Provider Active Team Status: Inactive Member Role/Relationship Status Dates Dr. Johana Estrella DO Primary Care Provider Active Start: February 14, 2025 End: February 14, 2025 Dr. Johana Estrella DO Attending Provider Active Start: February 14, 2025 End: February 14, 2025 Dr. Johana Estrella DO Referring Provider Active Start: February 14, 2025 End: February 14, 2025 Team Status: Inactive Member Role/Relationship Status Dates Dr. Johana Estrella DO Primary Care Provider Active Start: February 26, 2025 End: February 26, 2025 Dr. Johana Estrella DO Attending Provider Active Start: February 26, 2025 End: February 26, 2025 Dr. Johana Estrella DO Referring Provider Active Start: February 26, 2025 End: February 26, 2025 Evening Anchor Relationship Specialty Start Date End Date Johana Herrera MD PCP - General Family Medicine 11/25/14 Evening Anchor Relationship Specialty Start Date End Date Johana Herrera MD PCP - General Family Medicine 11/25/14 FOR RECORDS PERTAINING TO PATIENTS WHO ARE OR HAVE BEEN ENROLLED IN A CHEMICAL DEPENDENCY/SUBSTANCEABUSE PROGRAM, SOME INFORMATION MAY BE OMITTED. This clinical summary was aggregated from multiple sources. Caution should be exercised in using it in the provision of clinical care. This summary normalizes information from multiple sources, and as a consequence, information in this document may materially change the coding, format and clinical context of patient data. In addition, data may be omitted in some cases. CLINICAL DECISIONS SHOULD BE BASED ON THE PRIMARY CLINICAL RECORDS. [employer] [facility]. provides no warranty or guarantee of the accuracy or completeness of information in this document.
[2025-04-18 07:09] LABS: Internal QC Validated? YES +Cl - CLEAR BKGD; Pregnancy, Urine Negative Negative; Record Kit Lot#,Urine Preg 0000962302
[2025-04-18] MEDS: Lactated Ringers 1,000 ML 40 ML IV (07:12)
[2025-04-18] MEDS: Scopolamine 1mg/72hr Patch 1 PATCH TD (07:15)
[2025-04-18] MEDS: Magnesium 2 GM for ERAS IV (07:15)
--- NOTE | 2025-04-18 07:47 | PCM.PRE.AN2 ---
ASA Classification* ASA Classification ASA Classification: 3 Assessment & Plan Anesthesia* Anesthesia Assessment Anesthesia Assessment: Discussed sedation and/or anesthesia options, risks, benefits, and alternatives with patient/parents/legal guardian/POA. Questions invited. The patient/parents/legal guardian/POA seems to understand and agrees to proceed with anesthesia plan. Reviewed the physical assessment, medical history, allergy history and patient home medications list prior to surgery/procedure/anesthetic and documented any changes. Performed airway and anesthesia risk assessments. Anesthesia Type Anesthesia Type: General History Source History Obtained from:: Patient and Chart Anesthesia Focused Assessment* Temperature: 97 F Pulse Rate: 82 Blood Pressure: 153/99 Respiratory Rate: 16 Pulse Ox: 100 Oxygen Delivery Method: Room Air Airway Assessment Mouth opens: >3 cm Mallampati Score: I Teeth Condition: Intact Neck Range of motion (ROM): Full ROM Labs Anesthesia Preop lab: CBC WBC 12.0 K/mm3 (4.4-11.0) H 04/12/25 12:35 04/12/25 RBC 4.59 M/mm3 (4.2-5.4) 04/12/25 12:35 04/12/25 Hgb 13.7 g/dL (12.0-15.0) 04/12/25 12:35 04/12/25 Hct 40.3 % (37-47) 04/12/25 12:35 04/12/25 Plt Count 323 K/mm3 (150-450) 04/12/25 12:35 04/12/25 CHEMISTRY Potassium 4.2 mmol/L (3.5-5.1) 02/02/24 10:02/02/24 Sodium 137 mmol/L (136-145) 02/02/24 10:02/02/24 Magnesium 1.9 mg/dL (1.5-2.2) 04/12/25 12:35 04/12/25 BUN 12 mg/dL (7-18) 02/02/24 10:02/02/24 Creatinine 0.72 mg/dL (0.55-1.02) 02/02/24 10:02/02/24 Glucose 97 mg/dL (74-106) 02/02/24 10:02/02/24 TSH 2.92 uIU/mL (0.358-3.74) 10/26/12 06:50 06/16/12 COAG Urine Test Negative Negative 04/18/25 07:00 04/18/25 Pre-Assessment Diagnosis/Proposed Procedure Planned Operative Procedure(s): HYSTERECTOMY LAP TOTAL WITH BSO AND CYSTOSCOPY Anesthesia History 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 When Was Last Pacemaker Check QUESTION #4 FULL TEXT: You/Your Family Experience fever (hyperthermia) with Anesthesia Last Oral Intake Last Oral intake: Last Oral Intake NPO since 04:30 04/18/25 07:26 Meds taken in AM with sips of No 04/18/25 07:26 water? 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 Female Yes 04/11/25 10:54 HX of Motion Sickness No 04/11/25 10:54 HX of N/V After Surgery No 04/11/25 10:54 Non-Smoker Yes 04/11/25 10:54 Duration of Surgery greater Yes 04/11/25 10:54 than 60 minutes Number of Risk Factors 3 04/11/25 10:54 PONV Score Moderate Risk 04/11/25 10:54 Height & Weight Height & Weight: Anesthesia: Height & Weight Height 5 ft 3 in 04/18/25 07:26 Weight: 116.3 kg 04/18/25 07:26 Body Mass Index (BMI) 45.4 04/18/25 07:26 Respiratory Assessment Respiratory Assessment - 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 Has anyone observed you stop No 04/11/25 10:54 breathing during sleep? STOP Results Negative 04/11/25 10:54 QUESTION #5 FULL TEXT : Do you snore loudly (louder than talking or can be heard through closed doors)? 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 Specify any problems Hx of Preganancy in last 3 No 04/11/25 10:54 Months Nurse Filling Out Transfusion DSCHRIBER 04/11/25 10:54 & Questions: Date: 04/11/25 04/11/25 10:54 Time: 10:56 04/11/25 10:54 Patient unable to answer at this time (ie. 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 operator Hx Now No 04/11/25 10:54 Gestational Age (in weeks): EDC: Hx Hx Para Hx Section SAB No 04/11/25 10:54 Active Medications Active Medications: Current Medications Generic Name Dose Route Start Last Admin Trade Name Freq PRN Reason Stop Dose Admin Acetaminophen 1,000 mg 04/18/25 08:35 04/18/25 07:14 Acetaminophen 500 Mg Tablet PO 04/18/25 08:36 1,000 mg PREOP ONE Administration Celecoxib 400 mg 08/28/25 08:35 04/18/25 07:14 Celecoxib 200 Mg Capsule PO 04/18/25 08:36 400 mg PREOP ONE Administration Dexamethasone Sodium Phosphate 8 mg 04/18/25 08:35 Dexamethasone 4 Mg/Ml Vial IV 04/18/25 08:36 INTRAOP ONE Enoxaparin Sodium 40 mg 04/18/25 08:35 04/18/25 07:15 Enoxaparin 40 Mg/0.4 Ml Syringe SC 04/18/25 08:36 40 mg PREOP ONE Administration Gabapentin 600 mg 04/18/25 08:35 04/18/25 07:15 Gabapentin 600 Mg Tablet PO 04/18/25 08:36 600 mg PREOP ONE Administration Lactated Ringer's 1,000 mls @ 40 mls/hr 04/18/25 08:35 04/18/25 07:12 IV 40 mls/hr .Q25H ESTHER Administration Lactated Ringer's 1,000 mls @ 70 mls/hr 04/18/25 08:35 IV .[id number] ESTHER Magnesium Sulfate 2 gm/ 104 mls @ 208 mls/hr 04/18/25 08:35 04/18/25 07:15 Dextrose IV 04/18/25 09:04 208 mls/hr PREOP ONE Administration Insulin Human Lispro 0 unit 04/18/25 08:35 Insulin Lispro 100 Unit/Ml Insuln.Pen SC Q4H PRN PRN BG >/= 180, SEE PROTOCOL Protocol Metronidazole 500 mg 04/18/25 08:30 04/18/25 07:13 Metronidazole 500 Mg Tablet PO 04/18/25 08:31 500 mg PREOP ONE Administration Ondansetron HCl 4 mg 04/18/25 08:35 Ondansetron 4 Mg/2 Ml Vial IV 04/18/25 08:36 INTRAOP ONE Phenazopyridine HCl 190 mg 04/18/25 08:35 04/18/25 07:14 Phenazopyridine 95 Mg Tablet PO 04/18/25 08:36 190 mg PREOP ONE Administration Scopolamine HBr 1 patch 04/18/25 08:35 04/18/25 07:15 Scopolamine 1mg/72hr Patch TD 04/18/25 08:36 1 patch PREOP ONE [facility] History Migraine headache Syncope Dietary restriction Non-smoker Shortness of breath on exertion History of edema Wears contact lenses Back pain Gastric reflux Fatty liver Lichen sclerosus Intramural uterine fibroid Fatigue Diarrhea Right knee pain Vitamin D deficiency Asthma Alopecia Anxiety Depression Home Medications ?Medication ?Instructions ?Recorded ?Last Taken ?Type fexofenadine 60 mg tablet (Tita 60 mg PO DAILY 01/18/21 04/04/24 History Allergy) fluticasone propionate 50 1 spray intranasal QHS 01/18/21 04/04/24 History mcg/actuation nasal spray,suspension (Flonase Allergy Relief) cholecalciferol (vitamin D3) 50 50 mcg PO DAILY 03/22/24 04/04/24 History mcg (2,000 unit) capsule (Vitamin D3) citalopram 20 mg tablet 40 mg PO QHS 03/22/24 04/04/24 History magnesium 250 mg tablet 250 mg PO DAILY 03/22/24 04/04/24 History multivitamin (Daily Multi-Vitamin 1 tab PO DAILY 03/22/24 04/04/24 History tablet) albuterol sulfate 90 mcg/actuation 2 inh inhalation Q6H PRN shortness 04/11/25 Unknown History breath activated powder inhaler of breath or wheezing ascorbic acid 125 mg-collagen, 2 cap PO DAILY 04/11/25 Unknown History hydrolyzed 740 mg capsule (Collagen Plus Vitamin C) Allergy/AdvReac Type Severity Reaction Status Date / Time No Known Allergies Allergy Verified 04/18/25 07:11 Surgical History Hx of oral surgery History of hysteroscopy History of placement of ear tubes [place] teeth extracted Social History Smoking Status: Never smoker substance use type: does not use Review of Systems (Anesthesia) ROS Narrative System reviewed and no additional complaints, except as documented.
--- NOTE | 2025-04-18 08:31 | PCM.HP.BLA ---
History and Physical Date of Admission: 04/18/25 See document in chart.
--- NOTE | 2025-04-18 08:35 | UT_PTH ---
PATIENT: MARYSE LOGAN LOC: MS3 U#:[id number] AGE/SX: 44/F ROOM: MS312 RE04/18/[address]: Dr. Aline Abernathy MD : 1980 BED: 1 DIS: 04/19/2025 SPEC #: [id number] RECD: 04/18/25 12:03 STATUS: RAMONA YODER #: [id number] ASHISH: 04/18/25 08:[address]: Aline Abernathy DEPT: SURGICAL PATHOLOGY RECD BY: Severo Kelly ENTERED: 04/18/25 13:59 SP TYPE: UTERUS OTHR DR: Dr. Johana Estrella, DO Tissues: A - Uterus, NOS Procedures: Surgery Specimen Level V HEADER OPERATION: ERAS, open hysterectomy total, bilateral salpingectomy, cyst PRE-OP DIAGNOSIS: Fibroids, menorrhagia, dysmenorrhea TISSUE SUBMITTED: A- Uterus, cervix, bilateral fallopian tubes MICROSCOPIC DIAGNOSIS A. Uterus, cervix, fallopian tubes, open total hysterectomy with bilateral salpingectomy: - Cervix/lower uterine segment: Few dilated endocervical glands. - Endometrium: Proliferative endometrium with focal shedding stroma. - Myometrium: Leiomyomata (5.5 cm). - Bilateral fallopian tubes: Hydrosalpinx with mild acute and chronic inflammation suggestive of infection, without associated fimbria (clinically left). Unremarkable fallopian tube with fimbria (clinically right). MICROSCOPIC DESCRIPTION Slides are reviewed. GROSS DESCRIPTION A. Received in formalin labeled with the patient's name and date of . Designated as uterus, cervix, bilateral fallopian tubes is a 184 g, 10.9 x 6.3 x 5.9 cm irregular and distorted uterus detached adnexa. The serosa is tafoya-pink to red with patchy congestion. The attached cervix is tafoya-pink and measures 3.2 x 3.2 cm; the 1.0 cm os is probe patent and expelling hemorrhagic mucoid material with surrounding, erythematous granularity. Mucoid containing cyst are present. The specimen is inked as follows: Jvklyyeh-ugwmsUjgphyiju-gbadeLexidzssqxb-orange. Opening reveals a 5.7 x 3.0 cm slightly irregular endometrial cavity lined by pink-tafoya to red endometrium, up to 0.1 cm thick. There is a 0.9 x 0.5 cm somewhat cystic area adjacent to the lower uterine segment. The myometrium is tafoya-pink and measures up to 2.5 cm thick. Multiple intramural leiomyomas are identified measuring up to 5.5 cm. Anteriorly, there is an intramural leiomyoma with a tafoya-pink, slightly irregular appearance. The pink-purple to red bilateral fallopian tubes are unoriented, measuring 2.8 x 1.0 cm and 3.1 x 0.4 cm. Only one fimbriated end is identified. Md Do Resident Ur[facility] sections are submitted as follows: A1: Anterior cervixA2: Posterior cervixA3: Anterior endomyometriumA4: Posterior endomyometriumA5-A6: Fallopian tubesA7: Cystic lower uterine segment A8: Largest leiomyoma A9: Anterior leiomyoma with an irregular appearance CT [id number]
[2025-04-18] MEDS: Lidocaine 1% (5 ml sdv) 5 ML Vial IV (08:38)
[2025-04-18] MEDS: Cefazolin 1 GM/5 ML Vial 3 GM IV (08:45)
[2025-04-18] MEDS: metroNIDAZOLE 500 MG/100 ML BAG 100 MG IV (09:09)
[2025-04-18] MEDS: fentaNYL 100 MCG/2 ML Ampul 200 MCG IV (09:50)
--- NOTE | 2025-04-18 11:14 | OP.PCM_ITS ---
Problems Associated Problem List Diagnoses (1) Uterine fibroid: (2) Pelvic pain: (3) Hydrosalpinx: Operative Report (Standard) Operative Information Date of Procedure: 04/18/25 Pre-Operative Diagnosis: menorrhaiga, pelvic pain, intramural uterine fibroids Post-Operative Diagnosis: same + left hydrosalpinx Surgery/Procedure Performed: TLH converted to LUZMARIA, bilateral salpingectomy funder: Yes Software Applications Engineer: Estela Leyva Tasks completed by first officer: Opening, Closing, Hemostasis: Tie, Hemostasis: Electrocautery and Retracting Additional commercial lending assistant?: Yes Additional Real Estate Assistant #2: Federico Fischer MS3 Tasks completed by commercial lending assistant #2: Closing and Retracting Additional commercial lending assistant?: No Type of Anesthesia: General RN Documented Start/Stop Times: Operation Date: 04/18/25 08:35 Case Time Into Pre-Op 04/18/25 06:40 Out of Pre-Op 04/18/25 08:29 Anesthesia Start 04/18/25 08:32 Into Room 04/18/25 08:32 Procedure Start 04/18/25 08:56 Procedure End 04/18/25 11:05 Anesthesia End 04/18/25 11:09 Out of Room 04/18/25 11:09 Procedure Start Time: 08:56 Procedure Stop Time: 11:05 Select all DRAINS/GRAFTS/IMPLANTS that apply: Drains Drain details: parra Estimated Blood Loss: 150 mL Fluids Replaced: 800 mL Specimen collected: Yes Description of specimen(s) removed: uterus, cervix, bilateral fallpian tubes Description of surgery: The patient was taken to the operating room where she was prepped and draped in the dorsal lithotomy position with her arms tucked at her sides in a neurologically safe and neutral position. Uterine stock receiver manipulator was placed. Parra was placed to straight drain. Attention was turned to the a bdomen. A 5 mm intraumbilical incision was made after infiltration with bupivacaine. Visiport was used to obtain entry into the peritoneal cavity. The pneumoperitoneum was created patient was placed in Trendelenburg. Left and right lateral ports were placed. The right round ligament was clamped sealed and transected with the LigaSure device. The right utero-ovarian ligament was clamped sealed and transected with the LigaSure device. It was noted we had very limited mobility. The patient's pelvis was very narrow and the uterus was wide. Then proceeded to try to take down the round ligament and remove the tube on the left side but we could not manipulate the uterus enough to obtain adequate visualization. We cannot obtain visualization even with a 30 degree scope to see around the uterus and dissect the bladder flap. Decision was made to convert to a total abdominal hysterectomy. Uterine manipulator was removed. Parra was left to straight drain. The right arm was placed out on an armboard and the left arm was left tucked. A Pfannenstiel skin incision was made approximately 2 cm above the symphysis pubis and carried through to underlying layer fascia with a scalpel. Hemostasis was assured with cauterization and the incision was made. The fascia was incised in the midline and the fascial incision extended laterally with the King scissors. The fascia was dissected off the rectus muscles and the rectus muscles were in the midline. The peritoneal incision was made bluntly and carried superiorly and inferiorly with good visualization of bladder. The p atient was placed in Trendelenburg position. The Tripp retractor was placed and the bowel was packed away with laparotomy sponges. The uterus was grasped and brought up through the incision. The left round ligament was then clamped, transected and suture ligated. The round ligament was divided in the anterior peritoneum was taken down with sharp and blunt dissection and the bladder flap was created. The left utero-ovarian ligament was clamped, transected and suture-ligated. The right had been taken down laparoscopically. The uterine arteries were skeletonized, clamped with Justice clamps, transected and suture ligated. Hemostasis was assured. The cardinal ligaments were clamped, transected and suture ligated. Serial clamps were placed down the cervix until the level of the cervicovaginal junction was reached. Care was again taken to ensure that the bladder was down adequately. The right angle Z clamps were placed around the cervix and clamped down. The uterus and cervix were amputated with the scalpel and the right angle scissors. The pedicles were clamped then transected and suture-ligated and hemostasis was noted. A single whsbzso-be-gbkcv suture was needed in the midline to close the vaginal epithelium completely. The antimesenteric portions of the left tube were then clamped across with Mar clamps. The tubes were amputated and the pedicles were oversewn with Vicryl sutures. The pelvis was irrigated and examined. Again hemostasis was assured. Hemablast was placed over the pedicles. Both ureters were examined and found to be nondilated and peristalsing at the end of the procedure. The retractor and laparotomy sponges were removed. The fascia was closed with #1 looped PDS suture in a running standard fashion. The subcutaneous tissue was reapproximated with 3-0 vicryl suture in a running fashion. The skin was closed with 4-0 Monocryl in a subcuticular fashion. The surgery was performed by me with assistance other than the portions dictated as above. There were no qualified residents available for this procedure. All sponge lap and needle counts were correct and the patient was transferred to the recovery room in stable condition Surgical Findings: enlarged fibroid uterus, narrow pelvis, normal ovaries, normal right tube, left tube dilated and adhered to ovary Complications Complications: No Admit VTE Documentation VTE Present on Admission: No VTE Mechan Device Prophylaxis: SCD's VTE Pharm Prophylaxis ordered?: Yes
--- NOTE | 2025-04-18 11:20 | PCM.POST.ANE ---
Anesthesia: Postop Eval I Current Vital Signs Temperature: 97.4 F Pulse Rate: 83 Blood Pressure: 144/75 Respiratory Rate: 18 Pulse Ox: 95 Oxygen Delivery Method: Room Air Assessment Airway patent: Yes Spontaneous unlabored respirations: Yes Mental status: Awake and Calm nausea: No Vomiting: No Anesthesia Complication: No Fluid Hydration Crystalloid volume administer (ml): 800 Total IV fluid infused: 800 Progress Note Anesthesia document: Postop Eval 1 completed: Yes
[2025-04-18] MEDS: Lactated Ringers @ 70 MLS/HR 70 ML IV ×2 (11:32→23:36)
[2025-04-18] MEDS: Ketorolac 30 MG/ML Syringe IV (17:31)
--- NOTE | 2025-04-18 22:34 | NURSING ---
Pt dropped celexa when he was about to take it.
[2025-04-19 02:24] VITALS: BP 129/86; PULSE 96; RESP 15; TEMP 36.8; O2SAT 95
[2025-04-19 06:25] VITALS: BP 131/80; PULSE 83; RESP 16; TEMP 36.8; O2SAT 97
[2025-04-19 06:25] LABS: Hematocrit 33.0 % (37-47); Hemoglobin 11.3 g/dL (12.0-15.0); Mean Corp Hgb Conc 34.2 g/dL (32-36); Mean Corpuscular Volume 87.1 fL (81-99); Mean Platelet Vol. 9.5 fl (6.2-12.0); Platelet Count 309 K/mm3 (150-450); RBC Distribution Width CV 12.0 % (11.6-14.6); RBC Distribution Width SD 38.6 fl (35.1-43.9); Red Blood Count 3.79 M/mm3 (4.2-5.4); White Blood Count 13.6 K/mm3 (4.4-11.0)
--- NOTE | 2025-04-19 07:48 | PN.OBGYN_ITS ---
Subjective Subjective Doing well. Pain controlled. Has been up out if bed. Briggs still in placed. Minimal bleeding. Tolerating PO Objective Data Objective Data Vital Signs: Vital Signs Temp Pulse Resp BP Pulse Ox O2 Del Method O2 Flow Rate 98.2 F 83 16 131/80 H 97 Room Air 4 04/19/25 06:25 04/19/25 06:25 04/19/25 06:25 04/19/25 06:04/19/25 06:04/19/25 06:04/18/25 12:45 Oxygen Flow Rate (L/min) 4 Oxygen Delivery Method Room Air Weight: 116.3 kg Body Mass Index (BMI) 45.4 Intake & Output: Intake and Output for Last 24 Hours 04/17/25 04/18/25 04/19/25 23:59 23:59 23:59 Intake Total 2068.67 / 2268.67 400 / 400 Output Total 1650 / 1650 Balance 418.67 / 618.67 400 / 400 Lab / Micro Data 04/19/25 05:49 Labs: Laboratory Results - last 24 hr 04/19/25 05:49: WBC 13.6 H, RBC 3.79 L, Hgb 11.3 L, Hct 33.0 L, MCV 87.1, MCH 29.8, MCHC 34.2, RDW Std Deviation 38.6, RDW Coeff of Rosa 12.0, Plt Count 309, MPV 9.5 ROS Constitutional Constitutional: Denies headache(s) Cardiovascular Cardiovascular: Denies chest pain or dyspnea Gastrointestinal Gastrointestinal: Denies nausea or vomiting Physical Exam Const alert General Appearance: cooperative GI GI Narrative: soft appropriately tender. Abdominal bandage with small patches of blood and intact Assessment & Plan (1) Uterine fibroid: QUALIFIERS: Uterine leiomyoma location: unspecified location Q ualified Code(s): D25.9 - Leiomyoma of uterus, unspecified (2) Pelvic pain: (3) Hydrosalpinx: (4) Status post total abdominal hysterectomy: PLAN: Plan Discharge home
--- NOTE | 2025-04-19 07:52 | PCM.DC.SUM ---
Providers Date of Admission: 04/18/25 Date of Discharge: 04/19/25 Primary Care Physician: Dr. 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 (4) Status post total abdominal hysterectomy: Status: Acute Code(s): Z90.710 - Acquired absence of both cervix and uterus Plan Discharge home Medications at Discharge Home Medications fexofenadine 60 mg tablet (Tita Allergy) 60 mg PO DAILY 01/18/21 fluticasone propionate 50 mcg/actuation nasal spray,suspension (Flonase Allergy Relief) 1 spray intranasal QHS 01/18/21 cholecalciferol (vitamin D3) 50 mcg (2,000 unit) capsule (Vitamin D3) 50 mcg PO DAILY 03/22/24 citalopram 20 mg tablet 40 mg PO QHS 03/22/24 magnesium 250 mg tablet 250 mg PO DAILY 03/22/24 multivitamin (Daily Multi-Vitamin tablet) 1 tab PO DAILY 03/22/24 albuterol sulfate 90 mcg/actuation breath activated powder inhaler 2 inh inhalation Q6H PRN shortness of breath or wheezing 04/11/25 ascorbic acid 125 mg-collagen, hydrolyzed 740 mg capsule (Collagen Plus Vitamin C) 2 cap PO DAILY 04/11/25 oxycodone 5 mg tablet 5 mg PO Q6H PRN pain 5 days #20 tabs 04/19/25 Hospital Course Operations hysterectomy [facility] Summary of Care Provided Minutes Spent on Discharge: 20 Hospital Course: Post op [facility]MAR[facility] with Bilateral salpingectomy. No complications. Physical Exam Const alert and oriented x3 General Appearance: cooperative and comfortable Resp normal respiratory effort Cardio regular rate Psych mental status grossly normal Weight / BMI Weight Weight: 116.3 kg Body Mass Index (BMI) 45.4 ABG / Lab / Microbiology Data 04/19/25 05:49 Laboratory: Laboratory Results - last 24 hr 04/19/25 05:49: WBC 13.6 H, RBC 3.79 L, Hgb 11.3 L, Hct 33.0 L, MCV 87.1, MCH 29.8, MCHC 34.2, RDW Std Deviation 38.6, RDW Coeff of Rosa 12.0, Plt Count 309, MPV 9.5 D/C Instructions Discharge Activity: May Not Drive May resume sexual activity in: 6-8 weeks and - (Nothing in your vagina for 6 weeks. No vaginal or anal intercourse for 6-8 weeks) Weight Bearing Status: Weight bearing as tolerated Cleanse incision/area with: Soap & Water and - (Your incisions have skin glue, it can get wet, leave the glue on until it falls off. ) DC O2, CPAP, BIPAP Needs Home O2 Discharge instructions: No Please Follow Up With: Aline Abernathy MD When: With my office in 1-2 and 6 weeks or as needed. [phone] Meaningful Use Info Meaningful Use Meaningful Use Diagnoses (Choose all that apply): None applicable Discharge Plan Admission Admit Date/Time: 04/18/25 11:10 Primary Reason for Your Visit: hysterectomy Attending Provider: Aline Abernathy Primary Care Provider: Johana Estrella Consulting Providers: Hector Prince Discharge Orders/Prescriptions Prescriptions: New oxycodone 5 mg Tablet 5 mg PO Q6H PRN (Reason: pain) 5 Days Qty: 20 0RF Continued fexofenadine [Tita Allergy] 60 mg Tablet 60 mg PO DAILY fluticasone propionate [Flonase Allergy Relief] 50 mcg/actuation [place],Suspension 1 spray INTRANASAL QHS citalopram 20 mg tablet 40 mg PO QHS magnesium 250 mg tablet 250 mg PO DAILY cholecalciferol (vitamin D3) [Vitamin D3] 50 mcg (2,000 unit) capsule 50 mcg PO DAILY multivitamin [Daily Multi-Vitamin] Tablet 1 tab PO DAILY Collagen Plus Vitamin C 125-740 mg capsule 2 cap PO DAILY albuterol sulfate 90 mcg/actuation aerosol powdr breath activated 2 inh inhalation Q6H PRN (Reason: shortness of breath or wheezing) Referrals / Follow Up: Johana Estrella DO [Primary Care Provider] - Disposition Disposition (needs filled in before D/C Order can be placed): Home, Self Care
--- NOTE | 2025-04-19 09:19 | CASEMGMT ---
Dx: Hysterectomy LACE: 1 6-Clicks: 22 Medical record reviewed and patient evaluated for identification of discharge planning needs. Based on this review, at this time criteria are not present to indicate a need for discharge planning. Will remain available to assist with discharge planning needs as identified or requested.
[2025-04-19 09:56] VITALS: BP 140/90; PULSE 77; RESP 14; TEMP 37.1; O2SAT 97
--- NOTE | 2025-04-19 11:15 | NURSING ---
16 FR with 10cc water removed per policy catheter intact patient denies any discomfort at this time. call light within reach
== END 2025-04-19 12:49 | disposition home or self-care (01) | DRG 743 ==
LOC: SDC 11:19 → MS3 11:19
PROVIDERS: Anesthesiology; Admitting Provider Obstetrics & Gynecology; PCP Family Medicine; Referring Provider Obstetrics & Gynecology; Visit Provider Obstetrics & Gynecology
PROC: 0UT94ZZ Resection of Uterus, Percutaneous Endoscopic Approach (ICD-10-PCS; principal; 2025-04-18 08:15)
DX: N70.11 Chronic salpingitis (principal); D25.1 Intramural leiomyoma of uterus; F32.A Depression, unspecified; J45.909 Unspecified asthma, uncomplicated; E55.9 Vitamin D deficiency, unspecified; K21.9 Gastro-esophageal reflux disease without esophagitis; F41.9 Anxiety disorder, unspecified; N92.0 Excessive and frequent menstruation with regular cycle; Z53.31 Laparoscopic surgical procedure converted to open procedure; Z79.51 Long term (current) use of inhaled steroids; Z79.899 Other long term (current) drug therapy
CPT/HCPCS: 36415; 81025; 82962; 83735; 85027; 86850; 86900; 86901; 88307; J2405